=== PATIENT | female | born 1930 | race Asian ===

== ENCOUNTER 2016-07-20 09:51 | Emergency (ER) | payer OTHER ==
[2016-07-20 09:56] VITALS: TEMP 98.4; BMI 26.9
--- NOTE | 2016-07-20 10:24 | PDOC ---
History of Present Illness - General History Source: Patient, Family - History of Present Illness Initial Comments: 07/20/16 14:50 The patient is an 86 year old female with a significant past medical history of CAD, HTN, stent 5 years ago, diverticulosis s/p anemia with transfusion 2 years ago who is arrived to the Emergency Department via EMS with complaints of constant vertigo since this morning. Pt states that she was experiencing a minimal dizziness when she woke up this morning, which got worse while she was having breakfast. Pt states that her dizziness/vertigo gets worse when walking around and moving her head and improves at rest. She also reports palpitations and high bp. Pt reports dizziness and denies current double vision. She denies hematuria, dysuria, melena, hematochezia. She denies nausea, vomiting. She denies headache, neck pain, back pain. Daughter states that the pt experienced dizziness years ago due to anemia. Pt was on Plavix in the past but she stopped due to melena Pt lives with her daughter. PSH: appendectomy, bilateral hip replacement <Rosangela Rosales - Last Filed: 07/20/16 14:50> <Jay Jay Ratliff - Last Filed: 07/23/16 11:02> - General Chief Complaint: Lightheaded Stated Complaint: DIZZINESS, LIGHTHEADED Time Seen by Provider: 07/20/16 10:17 Past History <Rosangela Rosales - Last Filed: 07/20/16 14:50> - Past Medical History Anemia: Yes Cardiac Disorders: Yes HTN: Yes - Surgical History Appendectomy: Yes Cardiac Surgery: Yes (stent) Orthopedic Surgery: Yes (BILATERAL HIP REPLACEMENT) - Immunization History Td Vaccination: Yes Immunization Up to Date: Yes - Psycho/Social/Smoking Cessation Hx Anxiety: No Suicidal Ideation: No Smoking Status: No Smoking History: Never smoked Years of Tobacco Use: 0 Have you smoked in the past 12 months: No Number of Cigarettes Smoked Daily: 0 Cigars Per Day: 0 Information on smoking cessation initiated: No Hx Alcohol Use: No Drug/Substance Use Hx: No <Jay Jay Ratliff - Last Filed: 07/23/16 11:02> - Past Medical History Allergies/Adverse Reactions: Allergies Allergy/AdvReac Type Severity Reaction Status Date / Time No Known Allergies Allergy Verified 07/20/16 09:52 Home Medications: Ambulatory Orders Losartan Potassium [Cozaar -] 25 mg PO DAILY 03/07/16 Nifedipine ER [Procardia XL -] 90 mg PO DAILY 03/08/16 Meclizine HCl 25 mg PO TID #21 tablet 07/20/16 Metoprolol Tartrate 12.5 mg PO DAILY 07/20/16 Review of Systems - Review of Systems Able to Perform ROS?: Yes Comments:: 07/20/16 14:51 CONSTITUTIONAL: No reported: Fever, Chills, Diaphoresis, Generalized Weakness, Malaise, Loss of Appetite HEENT: No reported: Rhinorrhea, Nasal Congestion, Throat Pain, Throat Swelling, Difficulty Swallowing, Mouth Swelling, Ear Pain, Eye Pain, Visual Changes CARDIOVASCULAR: Yes: palpitations No reported: Chest Pain, Syncope, Peripheral Edema RESPIRATORY: No reported: Cough, Shortness of Breath, SOB with Exertion, Orthopnea, Wheezing , Stridor, Hemoptysis GASTROINTESTINAL: No reported: Abdominal pain, Abdominal Distension, Nausea, Vomiting, Diarrhea, Constipation, Melena, Hematochezia GENITOURINARY: No reported: Dysuria, Frequency, Urgency, Hesitancy, Flank Pain, Genital Pain MUSCULOSKELETAL: No reported: Myalgia, Arthralgia, Joint Swelling, Back pain, Neck Pain SKIN: No reported: Rash, Itching, Pallor HEMEATOLOGIC/IMMUNOLOGIC: No reported: Easy Bleeding, Easy Bruising, Lymphadenopathy, Frequent infections ENDOCRINE: No reported: Unexplained Weight Gain, Unexplained Weight Loss, Heat Intolerance , Cold Intolerance NEUROLOGIC: Yes: lightheadedness, dizziness, vertigo, double vision (resolved) No reported: Headache, Paresthesias, Unsteady Gait, Seizure, Mental Status Changes, Incontinence PSYCHIATRIC: No reported: Anxiety, Depression All Other Systems: Reviewed and Negative <Rosangela Rosales - Last Filed: 07/20/16 14:50> *Physical Exam - Vital Signs Last Vital Signs Temp Pulse Resp BP Pulse Ox 98.4 F 76 20 155/80 99 07/20/16 09:54 07/20/16 09:54 07/20/16 09:54 07/20/16 09:54 07/20/16 09:54 - Physical Exam Comments: 07/20/16 14:52 GENERAL: The patient is awake, alert, and fully oriented, Nontoxic - in no acute distress. HEAD: Normocephalic, atraumatic. EYES: extraocular movements intact, sclera anicteric, conjunctiva clear, horizontal nystagmus noted ENT: Normal voice, Moist mucous membranes. NECK: Normal range of motion, supple LUNGS: Breath sounds equal, clear to auscultation bilaterally. No wheezes, no rhonchi, no rales. HEART: Regular rate and rhythm, normal S1 and S2 without murmur, rub or gallop. ABDOMEN: Soft, nontender, normoactive bowel sounds. No guarding, no rebound. No CVA tenderness EXTREMITIES: Normal range of motion, no edema. No clubbing or cyanosis. No cords, erythema, or tenderness. NEUROLOGICAL: No facial assymetry, Normal speech, normal finger to nose/rapid alertnating movements, strength 5/5 and symmetric in upper/lower, senstaion symmetric grossly intact and symmetric. normal nonataxic gait, negative romberg PSYCH: Normal mood, normal affect. SKIN: Warm, Dry, normal turgor, <Rosangela Rosales - Last Filed: 07/20/16 14:50> - Vital Signs Last Vital Signs Temp Pulse Resp BP Pulse Ox 98.4 F 76 20 155/80 99 07/20/16 09:54 07/20/16 09:54 07/20/16 09:54 07/20/16 09:54 07/20/16 09:54 <Jay Jay Ratliff - Last Filed: 07/23/16 11:02> Heart Score/ECG Review - ECG Impressions Comment:: 07/20/16 10:49 Twelve-lead EKG was performed and reviewed by me. There is normal sinus rhythm with a normal rate. rate of 68 lvh abnormal r wave progression <Jay Jay Ratliff - Last Filed: 07/23/16 11:02> ED Treatment Course - LABORATORY CBC & Chemistry Diagram: 07/20/16 10:34 07/20/16 10:34 - ADDITIONAL ORDERS Additional order review: Laboratory Results 07/20/16 07/20/16 07/20/16 10:34 10:34 10:34 INR 0.96 Sodium 142 Potassium 3.9 Chloride 109 H Carbon Dioxide 26 Anion Gap 7 L BUN 16 Creatinine 0.9 Creat Clearance w eGFR 59.37 Random Glucose 107 H Calcium 8.7 Total Bilirubin 0.4 D AST 24 D ALT 11 L Alkaline Phosphatase 91 Creatine Kinase 92 Troponin I < 0.02 Total Protein 7.2 Albumin 3.5 Blood Type B POSITIVE Antibody Screen Negative 07/20/16 10:34 RBC 5.72 H MCV 68.7 L MCHC 30.9 L RDW 16.6 H MPV 9.1 D Neutrophils % 61.8 Lymphocytes % 26.5 Monocytes % 6.3 Eosinophils % 3.9 Basophils % 1.5 - Medications Given in the ED: ED Medications Discontinued Medications Generic Name Dose Route Start Last Admin Trade Name Freq PRN Reason Stop Dose Admin Meclizine HCl 25 mg 07/20/16 10:42 07/20/16 10:58 Antivert - PO 07/20/16 10:43 25 mg ONCE ONE Administration <Rosangela Rosales - Last Filed: 07/20/16 14:50> - LABORATORY CBC & Chemistry Diagram: 07/20/16 10:34 07/20/16 10:34 - RADIOLOGY Radiology Studies Ordered: Category Date Time Status CHEST X-RAY PORTABLE* [RAD] Stat Radiology 07/20/16 10:22 Ordered <Jay Jay Ratliff - Last Filed: 07/23/16 11:02> Medical Decision Making - Medical Decision Making 07/20/16 10:43 86y F hx of htn, cad s/p stent, anemia secondary to diverticulosis presents with vertigo since this morning, is fairly constant but sometimes resolves, pt does endorse sensation of movement, but her history seems inconsistent, as she complained of double vision when i was evaluating her, but later denies it. per family pt did endorse palptations earlier, denies GIB, cp, headache, neck pain, back pain. her exam showed some horizontal nystagmus, but normal finger to nose /rapid alternating movements. differential includes peripheral vertigo, vs central vertigo, anemia, metabolic dernagement will ck cbc, cmp, ct head will give meclizine A portion of this note was documented by scribe services under my direction. I have reviewed the details of the note, within reason, and agree with the documentation with the following case summary and management plan written by me 07/20/16 18:11 pts labs reviewed pt ct negative pt feeling significantly imroved able to ambulate around ED with nonataxic gait and no vertigo pt will be d/c with meclizine and pmd/neuro fu return precautions were discussed I discussed the physical exam findings, ancillary test results and final diagnoses with the patient. I answered all of the patient's questions. The patient was satisfied with the care received and felt comfortable with the discharge plan and treatment plan. The patient will call their primary care physician within 24 hours to arrange follow-up and will return to the Emergency Department with any new, persistent or worsening symptoms. <Jay Jay Ratliff - Last Filed: 07/23/16 11:02> *DC/Admit/Observation/Transfer - Attestations Scribe Attestion: 07/20/16 14:53 Documentation prepared by Rosangela Rosales, acting as medical claims representative for Jay Jay Ratliff MD. <Rosangela Rosales - Last Filed: 07/20/16 14:50> - Discharge Dispostion Admit: No <Jay Jay Ratliff - Last Filed: 07/23/16 11:02> Diagnosis at time of Disposition: Vertigo, Hematuria - Discharge Dispostion Disposition: HOME Condition at time of disposition: Improved - Prescriptions Prescriptions: Meclizine HCl 25 mg PO TID #21 tablet - Referrals Referrals: Rommel Moreland MD [Staff Physician] - - Patient Instructions Printed Discharge Instructions: DI for Vertigo Additional Instructions: Return to the emergency department immediately with ANY new, persistent or worsening symptoms including persistent dizziness, vision changes, numbness, tingling, weakness, vomiting or any other concerns. Take Meclizine as needed for your vertigo. You MUST call and follow up with your doctor and neurologist for further evaluation of your symptoms. Results were discussed with you. Please make sure your doctor reviews the results of your emergency evaluation. Print Language: MACEDONIAN
[2016-07-20] MEDS ORDERED: MECLIZINE HCL 25 MG TABLET (FP) PO ONE (10:42)
[2016-07-20] MEDS ORDERED: MECLIZINE HCL 25 MG TABLET (FP) ONE (10:56)
[2016-07-20 10:59] LABS: BASOPHIL 1.5 % (0-2.0); EOSINOPHIL 3.9 % (0-4.5); MCH 21.2 pg (25.7-33.7); MCHC 30.9 g/dl (32.0-36.0); MEAN CELL VOLUME 68.7 fl (80-96); MEAN PLT VOLUME 9.1 fl (7.5-11.1); NEUTROPHILS 61.8 % (42.8-82.8); RDW 16.6 % (11.6-15.6); WHITE BLOOD COUNT 6.3 K/mm3 (4.0-10.0)
[2016-07-20 11:05] LABS: ALBUMIN 3.5 g/dl (3.4-5.0); ANION GAP 7 (8-16); BILIRUBIN,TOTAL 0.4 mg/dL (0.2-1.0); CALCIUM 8.7 mg/dL (8.5-10.1); CO2 26 mmol/L (21-32); CREATININE 0.9 mg/dL (0.55-1.02); GLUCOSE,RANDOM 107 mg/dL (74-106); SGPT/ALT 11 U/L (12-78); TOT PROT 7.2 g/dl (6.4-8.2)
[2016-07-20 11:07] LABS: ALK PHOS 91 U/L (45-117); TROPONIN I < 0.02 ng/ml (0.00-0.05)
[2016-07-20 11:08] LABS: SGOT/AST 24 U/L (15-37)
[2016-07-20 11:11] LABS: INR 0.96 (0.82-1.09); PROTHROMBIN TIME (PATIENT) 10.6 SEC (9.98-11.88)
--- NOTE | 2016-07-20 12:15 | EKG ---
Test Reason : Blood Pressure : / mmHG Vent. Rate : 068 BPM Atrial Rate : 070 BPM P-R Int : 000 ms QRS Dur : 074 ms QT Int : 430 ms P-R-T Axes : 000 -20 129 degrees QTc Int : 457 ms POOR DATA QUALITY, INTERPRETATION MAY BE ADVERSELY AFFECTED UNDETERMINED RHYTHM LEFT AXIS DEVIATION LEFT VENTRICULAR HYPERTROPHY WITH REPOLARIZATION ABNORMALITY CANNOT RULE OUT SEPTAL INFARCT (CITED ON OR BEFORE 07-MAR-2016) ABNORMAL ECG Confirmed by AZEEM BEYER MD ([id number]) on 07/20/2016 12:15:32 PM Referred By: Confirmed By:AZEEM BEYER MD
[2016-07-20 14:31] LABS: PLATELET COUNT 197 K/MM3 (134-434); PLATELET ESTIMATE ADEQUATE (NORMAL)
[2016-07-20 17:04] LABS: URINE APPEARANCE CLEAR; URINE BILIRUBIN NEGATIVE (NEGATIVE); URINE COLOR COLORLESS; URINE GLUCOSE (UA) NEGATIVE (NEGATIVE); URINE KETONE NEGATIVE (NEGATIVE); URINE LEUK ESTERASE NEGATIVE (NEGATIVE); URINE NITRITE NEGATIVE (NEGATIVE); URINE PROTEIN NEGATIVE (NEGATIVE); URINE UROBILINOGEN NEGATIVE E.U./dl (0.2-1.0)
[2016-07-20 17:11] LABS: URINE BLOOD 2+ (NEGATIVE)
[2016-07-20 17:27] LABS: URINE BACTERIA RARE /hpf (NONE SEEN); URINE RBC 13 /hpf (0-3); URINE WBC 3 /hpf (3-5)
[2016-07-20 19:34] VITALS: BP 145/78; PULSE 78
== END 2016-07-20 19:35 | disposition home or self-care (01) ==
LOC: JER 09:51
DX: R42 Dizziness and giddiness (principal); R31.9 Hematuria, unspecified; I10 Essential (primary) hypertension; Z95.5 Presence of coronary angioplasty implant and graft; I25.10 Atherosclerotic heart disease of native coronary artery without angina pectoris; Z96.643 Presence of artificial hip joint, bilateral; D64.9 Anemia, unspecified
CPT/HCPCS: 36415; 70450-TC; 71010-TC; 80053; 81003; 81015; 82550; 84484; 85025; 85610; 86850; 86900; 86901; 93005; 93010; 99283-25

== ENCOUNTER 2016-08-31 09:03 | Inpatient (IN) | payer OTHER ==
[2016-08-31 09:34] VITALS: BMI 23.2
--- NOTE | 2016-08-31 09:58 | PDOC ---
History of Present Illness - General History Source: Patient Exam Limitations: No Limitations - History of Present Illness Initial Comments: 08/31/16 11:17 The patient is a 86 year old female, with a significant past medical history of CAD s/p 5x stents, HTN, anemia, diverticulosis, who presents to the emergency department with a recent diagnosis of pneumonia as an outpatient by PMD. Daughter reports taking the patient to see yesterday where she was diagnosed with pneumonia (after x-ray) and discharged home with antibiotics. Patient arrives complaining of SOB and intermittent cough for the past week but worsened the past 2 days. She reports coughing up a white substance. Daughter reports her has had similar symptoms that have now been resolved. She denies having her flu shot this season. She also reports having a oral temp to 101 last night. She denies chest pain. She denies recent, chills, leb swelling, orthopnea, headache or dizziness. She denies recent nausea, vomit, diarrhea or constipation. Patient arrives with O2 sat is 73. Allergies: NKDA Past surgical history: bilateral THR, appendectomy Social history: Nonsmoker. Denies EtOH use and drug use. PCP: <Tay Fu - Last Filed: 08/31/16 15:07> <Jay Jay Ratliff - Last Filed: 08/31/16 17:16> - General Chief Complaint: SIRS, Suspected/Possible Stated Complaint: SOB (PNEUMONIA) Time Seen by Provider: 08/31/16 09:36 Past History <Tay Fu - Last Filed: 08/31/16 15:07> - Past Medical History Anemia: Yes Cardiac Disorders: Yes HTN: Yes - Surgical History Appendectomy: Yes Cardiac Surgery: Yes (stent) Orthopedic Surgery: Yes (BILATERAL HIP REPLACEMENT) - Immunization History Td Vaccination: Yes Immunization Up to Date: Yes - Psycho/Social/Smoking Cessation Hx Anxiety: No Suicidal Ideation: No Smoking Status: No Smoking History: Never smoked Years of Tobacco Use: 0 Have you smoked in the past 12 months: No Number of Cigarettes Smoked Daily: 0 Cigars Per Day: 0 Information on smoking cessation initiated: No Hx Alcohol Use: No Drug/Substance Use Hx: No Substance Use Type: None <Jay Jay Ratliff - Last Filed: 08/31/16 17:16> - Past Medical History Allergies/Adverse Reactions: Allergies Allergy/AdvReac Type Severity Reaction Status Date / Time No Known Allergies Allergy Verified 08/31/16 09:28 Home Medications: Ambulatory Orders Losartan Potassium [Cozaar -] 25 mg PO DAILY 03/07/16 Nifedipine ER [Procardia XL -] 90 mg PO DAILY 03/08/16 Meclizine HCl 25 mg PO TID #21 tablet 07/20/16 Metoprolol Tartrate 12.5 mg PO DAILY 07/20/16 Review of Systems - Review of Systems Able to Perform ROS?: Yes Comments:: 08/31/16 11:17 CONSTITUTIONAL: +fever (101). No reported: Chills, Diaphoresis, Generalized Weakness, Malaise, Loss of Appetite HEENT: No reported: Rhinorrhea, Nasal Congestion, Throat Pain, Throat Swelling, Difficulty Swallowing, Mouth Swelling, Ear Pain, Eye Pain, Visual Changes CARDIOVASCULAR: No reported: Chest Pain, Syncope, Palpitations, Irregular Heart Rate, Lightheadedness, Peripheral Edema RESPIRATORY: +cough and SOB. No reported: Wheezing, Stridor, Hemoptysis GASTROINTESTINAL: No reported: Abdominal pain, Abdominal Distension, Nausea, Vomiting, Diarrhea, Constipation, Melena, Hematochezia GENITOURINARY: No reported: Dysuria, Frequency, Urgency, Hesitancy, Flank Pain, Genital Pain MUSCULOSKELETAL: No reported: Myalgia, Arthralgia, Joint Swelling, Back pain, Neck Pain SKIN: No reported: Rash, Itching, Pallor HEMEATOLOGIC/IMMUNOLOGIC: No reported: Easy Bleeding, Easy Bruising, Lymphadenopathy, Frequent infections ENDOCRINE: No reported: Unexplained Weight Gain, Unexplained Weight Loss, Heat Intolerance , Cold Intolerance NEUROLOGIC: No reported: Headache, Focal Weakness, Paresthesias, Vertigo, Lightheadedness, Unsteady Gait, Seizure, Mental Status Changes, Incontinence PSYCHIATRIC: No reported: Anxiety, Depression <Tay Fu - Last Filed: 08/31/16 15:07> *Physical Exam - Vital Signs Last Vital Signs Temp Pulse Resp BP Pulse Ox 99.2 F 83 22 120/62 95 08/31/16 10:00 08/31/16 09:28 08/31/16 09:28 08/31/16 09:28 08/31/16 10:00 - Physical Exam Comments: 08/31/16 11:18 GENERAL: The patient is awake, alert, and fully oriented, mildly tachypneic. HEAD: Normocephalic, atraumatic. EYES: extraocular movements intact, sclera anicteric, conjunctiva clear. ENT: Normal voice, Moist mucous membranes. NECK: Normal range of motion, supple LUNGS: slightly tachpenic, basilar rales, mild wheezing/rales in Rlower lobe HEART: Regular rate and rhythm, normal S1 and S2 without murmur, rub or gallop. ABDOMEN: Soft, nontender, normoactive bowel sounds. No guarding, no rebound. . No CVA tenderness EXTREMITIES: Normal range of motion, trace edema. No clubbing or cyanosis. No cords, erythema, or tenderness. NEUROLOGICAL: No facial assymetry, Normal speech, PSYCH: Normal mood, normal affect. SKIN: Warm, Dry, normal turgor, <Tay Fu - Last Filed: 08/31/16 15:07> - Vital Signs Last Vital Signs Temp Pulse Resp BP Pulse Ox 98.1 F 83 22 120/62 73 L 08/31/16 09:28 08/31/16 09:28 08/31/16 09:28 08/31/16 09:28 08/31/16 09:28 <Jay Jay Ratliff - Last Filed: 08/31/16 17:16> Heart Score/ECG Review - ECG Impressions Comment:: 08/31/16 11:00 Twelve-lead EKG was performed and reviewed by me. There is normal sinus rhythm with rate of 69 LVH with repolarization abnormal r wave progression <Jay Jay Ratliff - Last Filed: 08/31/16 17:16> ED Treatment Course - LABORATORY CBC & Chemistry Diagram: 08/31/16 09:45 08/31/16 09:45 - ADDITIONAL ORDERS Additional order review: Laboratory Results 08/31/16 08/31/16 08/31/16 10:13 09:45 09:45 INR PTT (Actin FS) Puncture Site Right radial ABG pH 7.40 ABG pCO2 at Pt Temp 38.7 ABG pO2 at Pt Temp 55.3 L ABG HCO3 23.6 ABG O2 Sat (Measured) 88.8 L ABG O2 Content 13.1 L ABG Base Excess -0.4 Sunny Test Positive Oxygen Flow Rate 3 lpm PEEP 0.0 Sodium 143 Potassium 3.5 Chloride 106 Carbon Dioxide 25 Anion Gap 12 BUN 25 H D Creatinine 1.7 H D Creat Clearance w eGFR 28.50 Random Glucose 139 H D Lactic Acid 2.352 H* Calcium 8.3 L Total Bilirubin 0.2 D AST 23 ALT 11 L Alkaline Phosphatase 99 Creatine Kinase 233 H D Troponin I 0.03 Total Protein 7.4 Albumin 3.5 Blood Type Antibody Screen 08/31/16 08/31/16 09:45 09:44 INR 1.02 PTT (Actin FS) 33.7 Puncture Site ABG pH ABG pCO2 at Pt Temp ABG pO2 at Pt Temp ABG HCO3 ABG O2 Sat (Measured) ABG O2 Content ABG Base Excess Sunny Test Oxygen Flow Rate PEEP Sodium Potassium Chloride Carbon Dioxide Anion Gap BUN Creatinine Creat Clearance w eGFR Random Glucose Lactic Acid Calcium Total Bilirubin AST ALT Alkaline Phosphatase Creatine Kinase Troponin I Total Protein Albumin Blood Type B POSITIVE Antibody Screen Negative 08/31/16 09:45 RBC 5.43 H MCV 68.6 L MCHC 30.7 L RDW 16.7 H MPV 8.1 D Neutrophils % 57.3 Lymphocytes % 24.9 Monocytes % 10.8 H Eosinophils % 6.0 H Basophils % 1.0 - RADIOLOGY Radiograph Interpretation: 08/31/16 11:31 CHEST X-RAY impressions reported by : No evidence of vascular congestion, pleural effusion or pneumothorax. NO evidence of a pulmonary infiltrates. <Tay Fu - Last Filed: 08/31/16 15:07> - LABORATORY CBC & Chemistry Diagram: 08/31/16 09:45 08/31/16 09:45 - RADIOLOGY Radiology Studies Ordered: Category Date Time Status CHEST X-RAY PORTABLE* [RAD] Stat Radiology 08/31/16 09:44 Ordered <Jay Jay Ratliff - Last Filed: 08/31/16 17:16> Medical Decision Making - Medical Decision Making 08/31/16 14:35 Call made to , patient's PCP, awaiting call back. 08/31/16 15:07 Call made to , 2nd time, case discussed. <Tay Fu - Last Filed: 08/31/16 15:07> - Medical Decision Making 08/31/16 10:56 86y F hx of htn, cad s/p stent (off plavix), presents with cough/sob - pt was dianogsed with pna/bronchitis yesterday as an outpatient, and had a cxr that was negative and was started on levaquin but has been feeeling more dyspneic and sob, on arrival pt was noted to have a saturation of 73% on triage, vitals otherwise normal - pt noted very mildly tachpneic but otherwise in no distress, pulm exam reveals some rales worse on the R side. pt was placed on nasal canula 2L with improvement to the low 90s. afebrile here, but noted to have fever at home to 101. ?pna - however would suspect pts cxr to show obvious infiltrate with her level of hypoxia - ?influenza - will swab also consider other 08/31/16 15:14 labs reviewed no signs of leukocytosis or left shift bnp eleated to 900s but cxr inconsistent with chf exacerbation to explain hypoxia the pts cxr shows faint infiltrate in r side, thus CT was obtained to further evaluate - there was signs of scarring and posible underlying infiltrate, however the area is not very large and incosnitent with the patients degree of hypoxia ?PE?? pt was written for abx due to possible infiltrate in the region of scarring, consider propylaxic treatment with a/c due to inability to r/o PE with her renal insufficeincy case sarwat/ dr. Cortes requested admission and consult with remedios awaiting duplex 08/31/16 17:15 case sarwat erazo and dr. monson agree with a/c in light of hypoxia out of proportion of her ct/xray findigngs Case discussed in detail with admitting physician including history, physical exam and ancillary studies. Admitting physician has assumed care for the patient, will follow all pending diagnostics and will complete the evaluation and treatment. CRITICAL CARE DOCUMENTATION: I spent ~35 minutes of Critical Care time, excluding separately billable procedures, involving high complexity decision making to assess, manipulate and support vital system function(s) to treat single or multiple vital organ system failure and/or to prevent further life threatening deterioration of the patient' s condition. <Jay Jay Ratliff - Last Filed: 08/31/16 17:16> *DC/Admit/Observation/Transfer - Attestations Scribe Attestion: 08/31/16 11:18 Documentation prepared by Tay Fu, acting as emergency medicine medical director for Jay Jay Ratliff MD. <Tay Fu - Last Filed: 08/31/16 15:07> - Discharge Dispostion Admit: Yes <Jay Jay Ratliff - Last Filed: 08/31/16 17:16> Diagnosis at time of Disposition: Hypoxia, Cough - Discharge Dispostion Condition at time of disposition: Guarded - Referrals
[2016-08-31 10:07] LABS: MCH 21.1 pg (25.7-33.7); MCHC 30.7 g/dl (32.0-36.0); MEAN CELL VOLUME 68.6 fl (80-96); MEAN PLT VOLUME 8.1 fl (7.5-11.1); NEUTROPHILS 57.3 % (42.8-82.8); PLATELET COUNT 170 K/MM3 (134-434); RDW 16.7 % (11.6-15.6); WHITE BLOOD COUNT 4.8 K/mm3 (4.0-10.0)
[2016-08-31 10:27] LABS: ARTERIAL BLD GAS O2 SATURATION 88.8 % (90-98.9); ARTERIAL BLOOD GAS BASE EXCESS -0.4 meq/l (-2-2); ARTERIAL BLOOD GAS HCO3 23.6 meq/L (22-26)
[2016-08-31 10:28] LABS: ALLENS TEST POSITIVE; ART PUNCT SITE RIGHT RADIAL
[2016-08-31 10:29] LABS: ARTERIAL BLOOD GAS PO2 55.3 mmHg (68-100); LPM/O2% 3 LPM; PT. ON O2? YES
[2016-08-31 10:29] LABS: ALBUMIN 3.5 g/dl (3.4-5.0); BILIRUBIN,TOTAL 0.2 mg/dL (0.2-1.0); CALCIUM 8.3 mg/dL (8.5-10.1); CREATININE 1.7 mg/dL (0.55-1.02); INR 1.02 (0.82-1.09); PROTHROMBIN TIME (PATIENT) 11.2 SEC (9.98-11.88); TOT PROT 7.4 g/dl (6.4-8.2)
[2016-08-31 10:32] LABS: ACTIVATED PTT 33.7 SECONDS (26.9-34.4); TROPONIN I 0.03 ng/ml (0.00-0.05)
[2016-08-31] MEDS ORDERED: ALBUTEROL SO4 2.5/IPRATROPIUM 0.5 INH SOL 3 ML VIAL.NEB. NEB ONE (10:45)
[2016-08-31] MEDS ORDERED: SODIUM CHLORIDE 500 ML IV STA (11:32)
[2016-08-31 11:55] LABS: URINE APPEARANCE CLEAR; URINE BILIRUBIN NEGATIVE (NEGATIVE); URINE COLOR YELLOW; URINE GLUCOSE (UA) NEGATIVE (NEGATIVE); URINE KETONE NEGATIVE (NEGATIVE); URINE NITRITE NEGATIVE (NEGATIVE); URINE PROTEIN NEGATIVE (NEGATIVE); URINE UROBILINOGEN NEGATIVE E.U./dl (0.2-1.0)
[2016-08-31 12:01] LABS: URINE BLOOD 2+ (NEGATIVE); URINE LEUK ESTERASE TRACE (NEGATIVE)
[2016-08-31 12:05] LABS: URINE BACTERIA RARE /hpf (NONE SEEN); URINE MUCUS RARE; URINE RBC 5 /hpf (0-3); URINE WBC 2 /hpf (3-5)
[2016-08-31 12:07] LABS: URINE HYALINE CAST 15 /lpf
[2016-08-31 13:53] LABS: MICROCYTOSIS 3+
[2016-08-31 13:54] LABS: ANISOCYTOSIS 3+; HYPOCHROMIA 2+; OVALOCYTES 1+; TARGET CELLS 1+
[2016-08-31] MEDS ORDERED: CEFTRIAXONE 1 GM in DEXTROSE 5%-WATER - 50 ML IVPB ONE (14:06)
[2016-08-31] MEDS ORDERED: AZITHROMYCIN IVPB 500 MG in DEXTROSE 5%-WATER - 250 ML IVPB ONE (14:07)
[2016-08-31] MEDS ORDERED: CEFTRIAXONE 50 ML ONE (14:35)
[2016-08-31] MEDS ORDERED: AZITHROMYCIN IVPB 250 ML IVPB ONE (14:35)
--- NOTE | 2016-08-31 15:34 | PN ---
Progress Note (short form) - Note Progress Note: Cardiology Consult Dictated 1. RML PNA on CT 2. Profound hypoxia, out of proportion to infiltrate size/extent 3. Concern for pulmonary embolism 4. HTN with CKD precludes CTA REC: Supplimental O2. Abx for PNA. Pulmonary evaluation. If clinical concern for PE, anticoagulate until diagnostic study can be done ( either CTA if creat improves or V/Q) Can obtain echo today for assessment of RV and RVSP as well as LE venous dopplers.
--- NOTE | 2016-08-31 15:36 | EKG ---
Test Reason : Blood Pressure : / mmHG Vent. Rate : 069 BPM Atrial Rate : 072 BPM P-R Int : 000 ms QRS Dur : 078 ms QT Int : 398 ms P-R-T Axes : 000 -13 -50 degrees QTc Int : 426 ms POOR DATA QUALITY, INTERPRETATION MAY BE ADVERSELY AFFECTED NORMAL SINUS RHYTHM WITH 1ST DEGREE A-V BLOCK LEFT VENTRICULAR HYPERTROPHY WITH REPOLARIZATION ABNORMALITY CANNOT RULE OUT SEPTAL INFARCT , AGE UNDETERMINED NONSPECIFIC ST ABNORMALITY ABNORMAL ECG Confirmed by AZEEM BEYER MD ([id number]) on 08/31/2016 3:35:49 PM Referred By: Confirmed By:AZEEM BEYER MD
[2016-08-31] MEDS: ASPIRIN 81 MG CHEWABLE TABLETS PO SCH (16:45)
[2016-08-31] MEDS ORDERED: ASPIRIN 81 MG CHEWABLE TABLETS ONE (16:56)
[2016-08-31] MEDS ORDERED: methylPREDNISolone NA SUCC 125 MG/2 ML VIAL IVPB ONE (17:13)
[2016-08-31] MEDS ORDERED: HEPARIN NA (PORCINE) 5,000 UNITS/ML 1ML VIAL IVPUSH ONE (17:14)
--- NOTE | 2016-08-31 17:19 | PN ---
Progress Note (short form) - Note Progress Note: PULMONARY CONSULTATION DICTATED 08/31/16 IMP ACUTE HYPOXEMIC RESPIRATORY FAILURE SIRS PNEUMONIA ? PE HTN ASHD S/P STENT X5 ACUTE KIDNEY INJURY ELEVATED LACTATE LEVEL PLAN IV ANTIBIOTICS INHALED BRONCHODILATORS STEROIDS HEPARIN SUPPLEMENTAL O2 ECHO D-DIMER TREND LACTATE DR RICHARDSON Problem List - Problems (1) Cough Code(s): R05 - COUGH (2) Hypoxia Code(s): R09.02 - HYPOXEMIA (3) Acute kidney injury Code(s): N17.9 - ACUTE KIDNEY FAILURE, UNSPECIFIED (4) Acute hypoxemic respiratory failure Code(s): J96.01 - ACUTE RESPIRATORY FAILURE WITH HYPOXIA (5) Pneumonia Code(s): J18.9 - PNEUMONIA, UNSPECIFIED ORGANISM (6) Lactate blood increased Code(s): E87.2 - ACIDOSIS
[2016-08-31] MEDS ORDERED: ALBUTEROL SO4 0.083% IH SOL 2.5 MG/3 ML VIAL.NEB. NEB PRN (17:23)
[2016-08-31] MEDS ORDERED: methylPREDNISolone NA SUCC 125 MG/2 ML VIAL ONE (17:35)
[2016-08-31] MEDS ORDERED: HEPARIN NA (PORCINE) 5,000 UNITS/ML 1ML VIAL ONE (17:35)
[2016-08-31] MEDS ORDERED: HEPARIN INFUSION - 500 ML IVPB ONE (17:35)
[2016-08-31] MEDS: HEPARIN INFUSION - 500 ML IVPB SCH (17:40)
[2016-08-31] MEDS: ALBUTEROL SO4 2.5/IPRATROPIUM 0.5 INH SOL 3 ML VIAL.NEB. NEB SCH ×2 (18:15→23:20)
[2016-08-31] MEDS: methylPREDNISolone NA SUCC 40 MG/1 ML VIAL IVPB SCH (20:19)
--- NOTE | 2016-08-31 21:48 | CONS ---
DATE OF CONSULTATION: 08/31/2016 REQUESTING PHYSICIAN: Jay Jay Ratliff MD in the emergency department for hypoxemia, possible pulmonary embolism. HISTORY: The patient is an 86-year-old Bangladeshi female poor historian with past medical history of hypertension and vertigo who presents to the emergency department for evaluation of dry cough and evaluation of pneumonia. As per ER records, the daughter reports taking the patient to see Dr. Cortes yesterday in the office where she was diagnosed with pneumonia on x-ray and started on a trial of oral antibiotics. The patient then became progressively more short of breath through the following 24 hours with intermittent cough, which has been worse over the last 2 days. Her dry cough began approximately 1 week ago. She describes coughing up a whitish phlegm. She denies fever or chills. As per the daughter and the emergency room records, a family member had similar URI symptoms, which resolved. As per records, the patient was also febrile to 101 last evening. The patient was found to be markedly hypoxemic on room air with an O2 saturation of 73%. PAST MEDICAL HISTORY: Coronary artery disease with reported 5 previous stents, hypertension, anemia, diverticulosis, bilateral total knee replacements, and previous appendectomy. ALLERGIES: None. HOME MEDICATIONS: Need to be reconciled but include Procardia XL, Metoprolol Tartrate, meclizine, and losartan. FAMILY HISTORY: Noncontributory. SOCIAL HISTORY: Nonsmoker. Denies recent prolonged airline travel. PHYSICAL EXAMINATION: Vital Signs: Temperature 99.2, blood pressure 120/62, pulse 83, regular, initial O2 is 73% on room air, 95% on 3 L. General: The patient appears comfortable lying flat. No JVD or bruits. Heart: S1, S2. Regular. Anteriorly there are rhonchi and mild expiratory wheezing posteriorly. Abdomen: Soft and nontender. Extremities: With 1+ edema bilaterally. LABORATORIES: White count 4.8, hematocrit 37.3, platelets 170, INR 1.02. AB.4, 38.7, 55 on 3 L nasal cannula. Sodium 143, potassium 3.5, BUN 25, creatinine 1.7, lactic acid 2.3, CK 233. Troponin 0.03. BNP 966.37. IMAGING STUDIES: Chest x-ray showed right middle/right lower lobe infiltrate. No evidence of vascular congestion. CT chest without contrast showed peribronchial thickening with linear opacities in the region of the right costophrenic angle, possibly pneumonia. No evidence of effusion or pneumothorax. No evidence of vascular congestion. IMPRESSION: 1. Right middle lobe pneumonia on CT. 2. Profound hypoxemia, out of proportion to the infiltrate size/extent. 3. Concern for pulmonary embolism. 4. Hypertension with chronic kidney disease precluding CT angiogram. 5. Reported history of coronary disease. RECOMMENDATIONS: 1. Supplemental O2. 2. Antibiotics for treatment of pneumonia. 3. Pulmonary evaluation. 4. If there is clinical concern for pulmonary embolism, anticoagulated until diagnostic study can be done (either CTA if creatinine improves or VQ scan). 5. Can obtain echocardiogram today for assessment of RV and right ventricular systolic pressure as well as lower extremity venous Dopplers. We will need to clarify the extent of her coronary disease and the timing of her previous stents. For now, would start aspirin 81 mg daily until further records can be reviewed. Thank you for the consultation. AZEEM BEYER M.D. [id number]
--- NOTE | 2016-09-01 01:50 | HP ---
Admitting History and Physical - Admission Chief Complaint: Shortness of breath History of Present Illness: Pt is a 86 y/o female w/ PMH significant for CAD(s/p stent placement), HTN, HLD , anemia and diverticulosis. Pt started on treatment for pneumoia w/ levaquin for the past 24-48 hrs. However pt developed increasing SOB and cough was slightly worsened. Cough is still dry and nonproductive. Pt denied any fever/ chills and was afebrile in the ER but pt was found to be hypoxic with O2 sat of 79%. CXR was unremarkable. Pt initially started on IV heparin for PE. CT chest was done without contrast due to elevated creatinine wc showed ? infiltrate. Dopplers of lower extreities were negative but D-Dimer was slightly elevated History Source: Patient - Past Medical History Cardiovascular: Yes: CAD, HTN, Hyperlipdemia ...: No Heme/Onc: Yes: Anemia - Past Surgical History Past Surgical History: Yes: Appendectomy Additional Past Surgical History: B/L THR - Smoking History Smoking history: Never smoked Have you smoked in the past 12 months: No Aproximately how many cigarettes per day: 0 - Alcohol/Substance Use Hx Alcohol Use: No Home Medications - Allergies Allergies/Adverse Reactions: Allergies Allergy/AdvReac Type Severity Reaction Status Date / Time No Known Allergies Allergy Verified 08/31/16 09:28 - Home Medications Home Medications: Ambulatory Orders Losartan Potassium [Cozaar -] 25 mg PO DAILY 03/07/16 Nifedipine ER [Procardia XL -] 90 mg PO DAILY 03/08/16 Levofloxacin [Levaquin] 500 mg PO DAILY 08/31/16 Metoprolol Succinate [Toprol Xl -] 12.5 mg PO DAILY 08/31/16 Review of Systems - Review of Systems Constitutional: reports: Chills, Fever, Loss of Appetite, Weakness Eyes: reports: No Symptoms HENT: reports: No Symptoms Neck: reports: No Symptoms Cardiovascular: reports: Shortness of Breath Respiratory: reports: Cough, SOB Gastrointestinal: reports: No Symptoms Physical Examination Vital Signs: Vital Signs Temperature 98.7 F 08/31/16 21:00 Pulse Rate 87 08/31/16 21:00 Respiratory Rate 20 08/31/16 21:00 Blood Pressure 128/74 08/31/16 21:00 O2 Sat by Pulse Oximetry (%) 90 L 08/31/16 21:00 Constitutional: Yes: Well Nourished HENT: Yes: WNL Neck: Yes: Supple Cardiovascular: Yes: WNL, Regular Rate and Rhythm Respiratory: Yes: Rhonchi Gastrointestinal: Yes: WNL, Normal Bowel Sounds, Soft Breast(s): Yes: WNL Musculoskeletal: Yes: WNL Extremities: Yes: WNL Edema: No Neurological: Yes: WNL, Alert, Oriented Problem List - Problems (1) Acute hypoxemic respiratory failure Assessment/Plan: Cont IV heparin Will need cta chest once creatinine improved ?V/Q scan Pulmonary consult Code(s): J96.01 - ACUTE RESPIRATORY FAILURE WITH HYPOXIA
[2016-09-01] MEDS: HEPARIN INFUSION - 500 ML IVPB SCH ×3 (02:12→22:56)
[2016-09-01] MEDS: methylPREDNISolone NA SUCC 40 MG/1 ML VIAL IVPB SCH ×4 (02:35→20:35)
[2016-09-01] MEDS: ALBUTEROL SO4 2.5/IPRATROPIUM 0.5 INH SOL 3 ML VIAL.NEB. NEB SCH ×4 (06:29→23:56)
[2016-09-01 07:04] LABS: BASOPHIL 0.2 % (0-2.0); MCH 21.2 pg (25.7-33.7); MEAN CELL VOLUME 68.4 fl (80-96); MEAN PLT VOLUME 8.6 fl (7.5-11.1); NEUTROPHILS 76.1 % (42.8-82.8); PLATELET COUNT 172 K/MM3 (134-434); RDW 16.8 % (11.6-15.6); WHITE BLOOD COUNT 3.3 K/mm3 (4.0-10.0)
[2016-09-01 07:24] LABS: ALBUMIN 3.3 g/dl (3.4-5.0); CALCIUM 7.9 mg/dL (8.5-10.1)
[2016-09-01 07:27] LABS: TROPONIN I < 0.02 ng/ml (0.00-0.05)
[2016-09-01 07:28] LABS: BILIRUBIN,TOTAL 0.2 mg/dL (0.2-1.0); CREATININE 1.2 mg/dL (0.55-1.02); TOT PROT 7.3 g/dl (6.4-8.2)
[2016-09-01] MEDS ORDERED: CEFTRIAXONE 1 GM in DEXTROSE 5%-WATER - 50 ML IVPB SCH (10:00)
[2016-09-01] MEDS ORDERED: PT OWN MED DRAWER 7, Y5N ONE (10:25)
--- NOTE | 2016-09-01 10:25 | PN ---
Progress Note (short form) - Note Progress Note: PULMONARY OOB TO CHAIR HARSH COUGH CONTINUES VSS/AFEBRILE ANICTERIC DIMINISHED BREATH SOUNDS B/L S1S2 BS+ NO EDEMA LABS/MEDS/NOTES/IMAGING/MICRO/D-DIMER REVIEWED BUN17/CR1.2 IMP ACUTE HYPOXEMIC RESPIRATORY FAILURE MODERATE INDEX OF SUSPICION FOR PE SIRS PNEUMONIA HTN ASHD S/P STENT X5 ACUTE KIDNEY INJURY IMPROVED ELEVATED LACTATE LEVEL PLAN CTA R/O PE (CR/BUN IMPROVED) IV ANTIBIOTICS INHALED BRONCHODILATORS STEROIDS HEPARIN SUPPLEMENTAL O2 TREND LACTATE R COLLEEN ESCOBEDO
--- NOTE | 2016-09-01 10:27 | PN ---
Progress Note, Physician History of Present Illness: seen and examined today in [facility]. c/o continued productive cough and sob. no overnight events. no new complaints. - Current Medication List Current Medications: Active Medications Albuterol Sulfate (Ventolin 0.083% Nebulizer Soln -) 1 amp NEB Q4H PRN PRN Reason: SHORT OF BREATH/WHEEZING Albuterol/Ipratropium (Duoneb -) 1 amp NEB QIDR [facility] Last Admin: 09/01/16 06:29 Dose: 1 amp Aspirin (Asa -) 81 mg PO DAILY [facility] Last Admin: 08/31/16 16:45 Dose: 81 mg Ceftriaxone Sodium (Rocephin 1gm Ivpb (Pre-Docked)) 1 gm IVPB DAILY [facility] Heparin Sodium/Dextrose (Heparin Infusion -) 500 mls @ 16 mls/hr IVPB TITR [facility] ; 800 UNITS/HR PRN Reason: Protocol Last Admin: 09/01/16 02:12 Dose: 10 mls/hr Azithromycin 250 mg/ Dextrose 250 mls @ 250 mls/hr IVPB DAILY [facility] Methylprednisolone Sodium Succinate (Solu-Medrol -) 40 mg IVPB Q6H-IV [facility] Last Admin: 09/01/16 02:35 Dose: 40 mg - Objective Vital Signs: Vital Signs Temperature 97.8 F 09/01/16 06:00 Pulse Rate 79 09/01/16 06:00 Respiratory Rate 20 09/01/16 06:00 Blood Pressure 155/79 09/01/16 06:00 O2 Sat by Pulse Oximetry (%) 90 L 08/31/16 21:00 Constitutional: Yes: Well Nourished, No Distress, Calm Eyes: Yes: WNL, Conjunctiva Clear, EOM Intact, PERRL HENT: Yes: WNL, Atraumatic, Normocephalic Neck: Yes: WNL, Supple, Trachea Midline Cardiovascular: Yes: Regular Rate and Rhythm, Murmur, S1, S2. No: Bradycardia, Tachycardia, Pulse Irregular, Bruit, JVD, Gallop, Rub, S3, S4, Varicosities Respiratory: Yes: Regular, On Nasal O2, Rhonchi. No: Rales, Wheezes Gastrointestinal: Yes: WNL, Normal Bowel Sounds, Soft. No: Distention, Tenderness Musculoskeletal: Yes: WNL Extremities: Yes: WNL Edema: No Peripheral Pulses WNL: Yes Peripheral Pulses: Left Doralis Pedis: 2+, Right Dorsalis Pedis: 2+ Integumentary: Yes: WNL Neurological: Yes: Alert, Oriented Psychiatric: Yes: Alert, Oriented Labs: CBC, BMP 09/01/16 06:00 09/01/16 06:00 INR, PTT INR 1.02 (0.82-1.09) 08/31/16 09:45 - ....Imaging Chest X-ray: Report Reviewed, Image Reviewed EKG: Report Reviewed, Image Reviewed Other: Report Reviewed, Image Reviewed (tele-nsr, pvcs, sinus tach) Assessment/Plan 86 year old woman with a history of HTN, CAD with reported 5 stents in the past (unknown details), anemia, admitted with sob, productive cough, severe hypoxia 1. RML PNA on CT 2. Profound hypoxia, out of proportion to infiltrate size/extent 3. Concern for pulmonary embolism 4. HTN with CKD 5. Aortic stenosis REC: Echo showed normal LV systolic function, mod to sev , mild mr, mild tr, mild AR, trivial pericardial effusion Supplimental O2. Abx for PNA. Pulmonary f/up Pt on heparin gtt for concern for PE, consider CTA or V/Q if concern for PE Echo showed normal RV size and function Pt is euvolemic, does not require diuresis currently Outpatient follow for aortic stenosis
[2016-09-01] MEDS: cefTRIAXone 1 GM/50 ML BAG (PRE-DOCKED) IVPB SCH (11:06)
[2016-09-01] MEDS: ASPIRIN 81 MG CHEWABLE TABLETS PO SCH (11:07)
[2016-09-01] MEDS: AZITHROMYCIN IVPB 250 MG in DEXTROSE 5%-WATER - 250 ML IVPB SCH (11:33)
[2016-09-02] MEDS ORDERED: HEPARIN NA (PORCINE) 5,000 UNITS/ML 1ML VIAL IVPUSH PRN ×2 (00:04)
[2016-09-02] MEDS: methylPREDNISolone NA SUCC 40 MG/1 ML VIAL IVPB SCH ×3 (03:53→17:56)
[2016-09-02] MEDS: ALBUTEROL SO4 2.5/IPRATROPIUM 0.5 INH SOL 3 ML VIAL.NEB. NEB SCH ×4 (06:25→23:20)
[2016-09-02] MEDS: ASPIRIN 81 MG CHEWABLE TABLETS PO SCH (09:04)
[2016-09-02] MEDS: cefTRIAXone 1 GM/50 ML BAG (PRE-DOCKED) IVPB SCH (09:04)
[2016-09-02] MEDS: AZITHROMYCIN IVPB 250 MG in DEXTROSE 5%-WATER - 250 ML IVPB SCH (11:17)
--- NOTE | 2016-09-02 11:29 | PN ---
Progress Note (short form) - Note Progress Note: PULMONARY COMPLAINING OF POST-NASAL DRIP HARSH COUGH CONTINUES VSS/AFEBRILE ANICTERIC DIMINISHED BREATH SOUNDS B/L S1S2 BS+ NO EDEMA LABS/MEDS/NOTES/IMAGING/MICRO/D-DIMER REVIEWED CTA NO PE/BIBASILAR INFILTRATES NOTED IMP ACUTE HYPOXEMIC RESPIRATORY FAILURE NO PE SIRS PNEUMONIA HTN ASHD S/P STENT X5 ACUTE KIDNEY INJURY IMPROVED ELEVATED LACTATE LEVEL PLAN STOP HEPARIN DRIP IV ANTIBIOTICS INHALED BRONCHODILATORS STEROIDS TAPERING DVT PROPHYLAXSIS SUPPLEMENTAL O2 NEEDED LACTATE TRENDING DOWN Alena MACIAS MD
--- NOTE | 2016-09-02 11:33 | PN ---
Progress Note, Physician History of Present Illness: seen and examined today in [facility]. no overnight events. no new complaints. feels about the same, coughing, congested. - Current Medication List Current Medications: Active Medications Albuterol Sulfate (Ventolin 0.083% Nebulizer Soln -) 1 amp NEB Q4H PRN PRN Reason: SHORT OF BREATH/WHEEZING Albuterol/Ipratropium (Duoneb -) 1 amp NEB QIDR [facility] Last Admin: 09/02/16 06:25 Dose: 1 amp Aspirin (Asa -) 81 mg PO DAILY [facility] Last Admin: 09/02/16 09:04 Dose: 81 mg Ceftriaxone Sodium (Rocephin 1gm Ivpb (Pre-Docked)) 1 gm IVPB DAILY [facility] Last Admin: 09/02/16 09:04 Dose: 1 gm Azithromycin 250 mg/ Dextrose 250 mls @ 250 mls/hr IVPB DAILY [facility] Last Admin: 09/02/16 11:17 Dose: 250 mls/hr Methylprednisolone Sodium Succinate (Solu-Medrol -) 40 mg IVPB Q8H-IV [facility] - Objective Vital Signs: Vital Signs Temperature 98.3 F 09/02/16 09:06 Pulse Rate 95 H 09/02/16 09:06 Respiratory Rate 20 09/02/16 09:06 Blood Pressure 164/69 09/02/16 09:06 O2 Sat by Pulse Oximetry (%) 90 L 09/01/16 22:00 Constitutional: Yes: Well Nourished, No Distress, Calm Eyes: Yes: WNL, Conjunctiva Clear, EOM Intact, PERRL HENT: Yes: WNL, Atraumatic, Normocephalic Neck: Yes: WNL, Supple, Trachea Midline Cardiovascular: Yes: Regular Rate and Rhythm, S1, S2. No: Bradycardia, Tachycardia, Pulse Irregular, Bruit, JVD, Gallop, Murmur, Rub, S3, S4, Varicosities Respiratory: Yes: Regular, Rhonchi. No: Rales, Wheezes Gastrointestinal: Yes: WNL, Normal Bowel Sounds, Soft. No: Distention, Tenderness Musculoskeletal: Yes: WNL Extremities: Yes: WNL Edema: No Peripheral Pulses WNL: Yes Peripheral Pulses: Left Doralis Pedis: 2+, Right Dorsalis Pedis: 2+ Integumentary: Yes: WNL Neurological: Yes: WNL, Alert, Oriented, Cran Nerves II-XII Intact ...Motor Strength: WNL Psychiatric: Yes: WNL, Alert, Oriented Labs: CBC, BMP 09/01/16 06:00 09/01/16 06:00 INR, PTT INR 1.02 (0.82-1.09) 08/31/16 09:45 - ....Imaging Chest X-ray: Report Reviewed, Image Reviewed EKG: Report Reviewed, Image Reviewed Other: Report Reviewed, Image Reviewed (tele-nsr, sinus tach, pvcs, very brief psvt, apcs) Assessment/Plan 86 year old woman with a history of HTN, CAD with reported 5 stents in the past (unknown details), anemia, admitted with sob, productive cough, severe hypoxia. 1. RML PNA on CT 2. Profound hypoxia 3. Initial concern for pulmonary embolism, not seen on CTA chest 4. HTN with CKD 5. Aortic stenosis REC: Echo showed normal LV systolic function, mod to sev , mild mr, mild tr, mild AR, trivial pericardial effusion, normal RV size and function Supplimental O2. Abx for PNA. CTA done-reportedly no evidence of PE, full AC can likely be stopped Pt is euvolemic, does not require diuresis currently Outpatient follow for aortic stenosis Ok to dc telemetry, no sig arrhythmias, only very short few beats psvt
[2016-09-02 18:17] LABS: MCH 20.6 pg (25.7-33.7); MCHC 30.7 g/dl (32.0-36.0); MEAN CELL VOLUME 67.1 fl (80-96); MEAN PLT VOLUME 8.5 fl (7.5-11.1); PLATELET COUNT 183 K/MM3 (134-434); RDW 16.5 % (11.6-15.6); WHITE BLOOD COUNT 12.9 K/mm3 (4.0-10.0)
[2016-09-02 18:35] LABS: ALBUMIN 2.9 g/dl (3.4-5.0); CREATININE 1.2 mg/dL (0.55-1.02)
[2016-09-02 18:37] LABS: BILIRUBIN,TOTAL 0.1 mg/dL (0.2-1.0); TOT PROT 6.5 g/dl (6.4-8.2)
[2016-09-02] MEDS: NIFEdipine E.R 60 MG TABLET (UD) PO SCH (18:45)
--- NOTE | 2016-09-02 23:04 | PN ---
Progress Note, Physician Chief Complaint: No new complaints History of Present Illness: No new changes - Current Medication List Current Medications: Active Medications Albuterol Sulfate (Ventolin 0.083% Nebulizer Soln -) 1 amp NEB Q4H PRN PRN Reason: SHORT OF BREATH/WHEEZING Albuterol/Ipratropium (Duoneb -) 1 amp NEB QIDR [facility] Last Admin: 09/02/16 17:44 Dose: 1 amp Aspirin (Asa -) 81 mg PO DAILY [facility] Last Admin: 09/02/16 09:04 Dose: 81 mg Ceftriaxone Sodium (Rocephin 1gm Ivpb (Pre-Docked)) 1 gm IVPB DAILY [facility] Last Admin: 09/02/16 09:04 Dose: 1 gm Azithromycin 250 mg/ Dextrose 250 mls @ 250 mls/hr IVPB DAILY [facility] Last Admin: 09/02/16 11:17 Dose: 250 mls/hr Methylprednisolone Sodium Succinate (Solu-Medrol -) 40 mg IVPB Q8H-IV [facility] Last Admin: 09/02/16 17:56 Dose: 40 mg Nifedipine (Procardia Xl -) 60 mg PO DAILY [facility] Last Admin: 09/02/16 18:45 Dose: 60 mg - Objective Vital Signs: Vital Signs Temperature 98.0 F 09/02/16 19:57 Pulse Rate 100 H 09/02/16 19:57 Respiratory Rate 18 09/02/16 19:57 Blood Pressure 140/66 09/02/16 19:57 O2 Sat by Pulse Oximetry (%) 90 L 09/01/16 22:00 Constitutional: Yes: No Distress Neck: Yes: Supple Cardiovascular: Yes: Tachycardia Respiratory: Yes: Rhonchi Gastrointestinal: Yes: WNL, Normal Bowel Sounds, Soft Labs: CBC, BMP 09/02/16 17:45 09/02/16 17:45 INR, PTT INR 1.02 (0.82-1.09) 08/31/16 09:45 Problem List - Problems (1) Hypoxia Code(s): R09.02 - HYPOXEMIA (2) Pneumonia Assessment/Plan: Cont IV zithro/ceftriaxone Cont nebulizers WBC was normal Multilobar infiltrates on cta chest Code(s): J18.9 - PNEUMONIA, UNSPECIFIED ORGANISM
[2016-09-03] MEDS: methylPREDNISolone NA SUCC 40 MG/1 ML VIAL IVPB SCH ×3 (02:27→18:34)
[2016-09-03] MEDS: ALBUTEROL SO4 2.5/IPRATROPIUM 0.5 INH SOL 3 ML VIAL.NEB. NEB SCH ×4 (06:50→23:02)
[2016-09-03 08:25] LABS: BASOPHIL 0.1 % (0-2.0); EOSINOPHIL 0.1 % (0-4.5); MCH 20.9 pg (25.7-33.7); MEAN CELL VOLUME 67.4 fl (80-96); MEAN PLT VOLUME 8.1 fl (7.5-11.1); NEUTROPHILS 90.7 % (42.8-82.8); PLATELET COUNT 178 K/MM3 (134-434); RDW 16.6 % (11.6-15.6); WHITE BLOOD COUNT 12.1 K/mm3 (4.0-10.0)
[2016-09-03] MEDS ORDERED: PT OWN MED DRAWER 7, Y5N ONE (08:54)
[2016-09-03] MEDS: ASPIRIN 81 MG CHEWABLE TABLETS PO SCH (09:03)
[2016-09-03] MEDS: cefTRIAXone 1 GM/50 ML BAG (PRE-DOCKED) IVPB SCH (09:03)
[2016-09-03] MEDS: NIFEdipine E.R 60 MG TABLET (UD) PO SCH (09:03)
[2016-09-03 09:24] LABS: ALBUMIN 2.9 g/dl (3.4-5.0); BILIRUBIN,TOTAL 0.2 mg/dL (0.2-1.0); CALCIUM 8.1 mg/dL (8.5-10.1); CREATININE 1.1 mg/dL (0.55-1.02); TOT PROT 6.3 g/dl (6.4-8.2)
[2016-09-03] MEDS: AZITHROMYCIN IVPB 250 MG in DEXTROSE 5%-WATER - 250 ML IVPB SCH (09:35)
[2016-09-03 10:50] LABS: HYPOCHROMIA 2+; MICROCYTOSIS 1+; OVALOCYTES 1+; TARGET CELLS 1+
[2016-09-03 10:51] LABS: ANISOCYTOSIS 3+; POIKILOCYTOSIS 1+; SCHISTOCYTES FEW
--- NOTE | 2016-09-03 11:41 | PN ---
Progress Note, Physician History of Present Illness: seen and examined today in [facility]. still has mild cough, congestion. no overnight events. no new complaints. - Current Medication List Current Medications: Active Medications Albuterol Sulfate (Ventolin 0.083% Nebulizer Soln -) 1 amp NEB Q4H PRN PRN Reason: SHORT OF BREATH/WHEEZING Albuterol/Ipratropium (Duoneb -) 1 amp NEB QIDR [facility] Last Admin: 09/03/16 06:50 Dose: Not Given Aspirin (Asa -) 81 mg PO DAILY [facility] Last Admin: 09/03/16 09:03 Dose: 81 mg Ceftriaxone Sodium (Rocephin 1gm Ivpb (Pre-Docked)) 1 gm IVPB DAILY [facility] Last Admin: 09/03/16 09:03 Dose: 1 gm Azithromycin 250 mg/ Dextrose 250 mls @ 250 mls/hr IVPB DAILY [facility] Last Admin: 09/03/16 09:35 Dose: 250 mls/hr Methylprednisolone Sodium Succinate (Solu-Medrol -) 40 mg IVPB Q8H-IV [facility] Last Admin: 09/03/16 09:04 Dose: 40 mg Nifedipine (Procardia Xl -) 60 mg PO DAILY [facility] Last Admin: 09/03/16 09:03 Dose: 60 mg - Objective Vital Signs: Vital Signs Temperature 97.8 F 09/03/16 06:00 Pulse Rate 84 09/03/16 09:05 Respiratory Rate 22 09/03/16 09:05 Blood Pressure 150/93 09/03/16 09:05 O2 Sat by Pulse Oximetry (%) 90 L 09/01/16 22:00 Constitutional: Yes: Well Nourished, No Distress, Calm Eyes: Yes: WNL, Conjunctiva Clear, EOM Intact, PERRL HENT: Yes: WNL, Atraumatic, Normocephalic Neck: Yes: WNL, Supple, Trachea Midline Cardiovascular: Yes: Regular Rate and Rhythm, Murmur, S1, S2. No: Bradycardia, Tachycardia, Pulse Irregular, Bruit, JVD, Gallop, Rub, S3, S4, Varicosities, Other Respiratory: Yes: Regular, Cough, Diminished, On Nasal O2, Rhonchi, Wheezes. No : Rales, SOB Gastrointestinal: Yes: WNL, Normal Bowel Sounds, Soft. No: Distention, Tenderness Musculoskeletal: Yes: WNL Extremities: Yes: WNL Edema: No Peripheral Pulses WNL: Yes Peripheral Pulses: Left Doralis Pedis: 2+, Right Dorsalis Pedis: 2+ Integumentary: Yes: WNL Neurological: Yes: WNL, Alert, Oriented, Cran Nerves II-XII Intact Psychiatric: Yes: WNL, Alert, Oriented Labs: CBC, BMP 09/03/16 06:05 09/03/16 06:05 INR, PTT INR 1.02 (0.82-1.09) 08/31/16 09:45 - ....Imaging Chest X-ray: Report Reviewed, Image Reviewed EKG: Report Reviewed, Image Reviewed Other: Report Reviewed, Image Reviewed (tele-nsr, pvcs, apcs, very brief episodes of psvt) Assessment/Plan 86 year old woman with a history of HTN, CAD with reported 5 stents in the past (unknown details), anemia, admitted with sob, productive cough, severe hypoxia. 1. RML PNA on CT 2. Profound hypoxia 3. Initial concern for pulmonary embolism, not seen on CTA chest 4. HTN with CKD 5. Aortic stenosis REC: Echo showed normal LV systolic function, mod to sev , mild mr, mild tr, mild AR, trivial pericardial effusion, normal RV size and function Supplimental O2. Abx for PNA. CTA done-reportedly no evidence of PE, full AC stopped, start DVT ppx as appropriate Pt is euvolemic, does not require diuresis HTN variable, low normal on admission, anti-HTN meds held for possible sepsis, BP trended up yesterday, Nifedipine XL 60mg started (takes 90mg at home) Hold losartan for now for elevated creatinine on admission If BP again above goal can uptitrate nifedipine to home dose of 90mg and can resume home Metoprolol Outpatient follow for aortic stenosis Ok to dc telemetry, no sig arrhythmias, only very short few beats psvt
--- NOTE | 2016-09-03 11:45 | PN ---
Progress Note, Physician History of Present Illness: PULMONARY ALERT,FEELING BETTER,LESS CONGESTED - Current Medication List Current Medications: Active Medications Albuterol Sulfate (Ventolin 0.083% Nebulizer Soln -) 1 amp NEB Q4H PRN PRN Reason: SHORT OF BREATH/WHEEZING Albuterol/Ipratropium (Duoneb -) 1 amp NEB QIDR [facility] Last Admin: 09/03/16 06:50 Dose: Not Given Aspirin (Asa -) 81 mg PO DAILY [facility] Last Admin: 09/03/16 09:03 Dose: 81 mg Ceftriaxone Sodium (Rocephin 1gm Ivpb (Pre-Docked)) 1 gm IVPB DAILY [facility] Last Admin: 09/03/16 09:03 Dose: 1 gm Azithromycin 250 mg/ Dextrose 250 mls @ 250 mls/hr IVPB DAILY [facility] Last Admin: 09/03/16 09:35 Dose: 250 mls/hr Methylprednisolone Sodium Succinate (Solu-Medrol -) 40 mg IVPB Q8H-IV [facility] Last Admin: 09/03/16 09:04 Dose: 40 mg Nifedipine (Procardia Xl -) 60 mg PO DAILY [facility] Last Admin: 09/03/16 09:03 Dose: 60 mg - Objective Vital Signs: Vital Signs Temperature 97.8 F 09/03/16 06:00 Pulse Rate 84 09/03/16 09:05 Respiratory Rate 22 09/03/16 09:05 Blood Pressure 150/93 09/03/16 09:05 O2 Sat by Pulse Oximetry (%) 90 L 09/01/16 22:00 Constitutional: Yes: Well Nourished, Calm Eyes: Yes: WNL HENT: Yes: WNL Neck: Yes: WNL Cardiovascular: Yes: Regular Rate and Rhythm, S1, S2 Respiratory: Yes: Rhonchi (BILATERAL RHONCHI) Gastrointestinal: Yes: Normal Bowel Sounds, Soft Extremities: Yes: WNL Edema: No Labs: CBC, BMP 09/03/16 06:05 09/03/16 06:05 INR, PTT INR 1.02 (0.82-1.09) 08/31/16 09:45 - ....Imaging Cat Scan: Report Reviewed, Image Reviewed Problem List - Problems (1) Cough Code(s): R05 - COUGH (2) Hypoxia Code(s): R09.02 - HYPOXEMIA (3) Acute kidney injury Code(s): N17.9 - ACUTE KIDNEY FAILURE, UNSPECIFIED (4) Acute hypoxemic respiratory failure Code(s): J96.01 - ACUTE RESPIRATORY FAILURE WITH HYPOXIA (5) Pneumonia Code(s): J18.9 - PNEUMONIA, UNSPECIFIED ORGANISM (6) Lactate blood increased Code(s): E87.2 - ACIDOSIS Assessment/Plan IMP ACUTE HYPOXEMIC RESPIRATORY FAILURE PNEUMONIA HTN ASHD S/P STENT X5 ACUTE KIDNEY INJURY ELEVATED LACTATE LEVEL NORMAL PLAN IV ANTIBIOTICS INHALED BRONCHODILATORS STEROIDS HEPARIN SUPPLEMENTAL O2 ID EVALUATION DR RICHARDSON
--- NOTE | 2016-09-03 12:36 | PN ---
Progress Note (short form) - Note Progress Note: ID Consult dictated Bilateral pneumonia Possible sepsis secondary to pneumonia S/P Leukopenia - secondary to viral infection v. sepsis Check sputum c/s, urine legionella/ pneumococcal ag Continue empiric zithromax/ ceftriaxone
[2016-09-03] MEDS: guaiFENesin 200 MG/10 ML 10 ML UNIT-DOSE CUPS PO PRN (14:19)
--- NOTE | 2016-09-03 16:14 | CONS ---
DATE OF CONSULTATION: DATE OF DICTATION: 09/03/2016 An 86-year-old female evaluated for pneumonia. The patient was admitted to the hospital with several days history of cough. Patient reported cough productive of whitish sputum for several days, which worsened over the 2 days prior to admission. She had seen her primary doctor as an outpatient and was diagnosed with pneumonia. She was prescribed Levaquin. Patient clinically worsened, with increasing cough and shortness of breath. She developed fever. She presented to the hospital, where she was admitted with a diagnosis of pneumonia. At the present time she complains of persistent cough, white sputum production, and left-sided pleuritic type chest pain. She lives at home. She reports being exposed to persons with respiratory tract infection. She had not received influenza vaccine. She is a nonsmoker. On admission, a CAT scan showed a right middle lobe infiltrate as well as bibasilar infiltrates. She continues to have hypoxemia and a CT angio was performed and was negative for pulmonary embolism. Past medical history positive for coronary artery disease, hypertension, chronic anemia, diverticulosis. PAST SURGICAL HISTORY: Status post bilateral total hip replacements, status post appendectomy. No known allergies. MEDICATIONS: Cozaar, Procardia, meclizine, metoprolol. SOCIAL HISTORY: Nonsmoker, nondrinker. SYSTEMS REVIEW: Neurologic: No seizure activity, loss of consciousness, or focal weakness. Cardiac: Positive for left-sided pleuritic type chest pain. Respiratory: As per HPI. Gastrointestinal: Negative vomiting or diarrhea. Genitourinary: Negative for urinary tract infection. LABORATORY DATA: White count 12.1, hematocrit 35.0, platelet count 178. BUN 23, creatinine 1.1. Blood and urine cultures pending. Urinalysis: 2 white cells. Influenza swab negative. PHYSICAL EXAMINATION: General: Patient is awake and alert, she is in moderate distress secondary to persistent cough, slightly dyspneic at rest, on nasal cannula O2. Vital Signs: Temperature 97.8. Blood pressure 150/93. Pulse , regular. Respiration 22 per minute. Eyes: Sclerae anicteric. Heart Sounds: S1, S2. A 2/6 pansystolic murmur. Lungs: Rales at the bases bilaterally. Scattered rhonchi. Abdomen: Soft. No tenderness elicited. No mass, rebound or rigidity. Extremities: Negative for edema. IMPRESSION: 1. Bilateral pneumonia, community acquired versus atypical. 2. Possible sepsis secondary to pneumonia. 3. Leukocytosis. 4. Coronary artery disease. Will obtain sputum culture, urine Legionella, and pneumococcal antigen. Continue empiric coverage with Zithromax and ceftriaxone. Suspect the patient may have had a component of post-viral pneumonia in light of recent leukopenia. If clinical response suboptimal, will add vancomycin for increased staphylococcus coverage for possible post-viral staphylococcus pneumonia. Continue inhaled bronchodilators and corticosteroids. Will follow. Thank you for the kind referral. AZEEM SOLANO M.D. [id number]
--- NOTE | 2016-09-03 19:30 | PN ---
Progress Note, Physician History of Present Illness: Pt w/hypoxia and O2 sat 92% Pt to use BIPAP tonight However after speaking w/ pt and daughter, pt is not taking deep breathes bc of cough - Current Medication List Current Medications: Active Medications Albuterol Sulfate (Ventolin 0.083% Nebulizer Soln -) 1 amp NEB Q4H PRN PRN Reason: SHORT OF BREATH/WHEEZING Albuterol/Ipratropium (Duoneb -) 1 amp NEB QIDR [facility] Last Admin: 09/03/16 17:38 Dose: 1 amp Aspirin (Asa -) 81 mg PO DAILY [facility] Last Admin: 09/03/16 09:03 Dose: 81 mg Ceftriaxone Sodium (Rocephin 1gm Ivpb (Pre-Docked)) 1 gm IVPB DAILY [facility] Last Admin: 09/03/16 09:03 Dose: 1 gm Guaifenesin (Robitussin -) 10 ml PO Q6H PRN PRN Reason: COUGH Last Admin: 09/03/16 14:19 Dose: 10 ml Azithromycin 250 mg/ Dextrose 250 mls @ 250 mls/hr IVPB DAILY [facility] Last Admin: 09/03/16 09:35 Dose: 250 mls/hr Methylprednisolone Sodium Succinate (Solu-Medrol -) 40 mg IVPB Q8H-IV [facility] Last Admin: 09/03/16 18:34 Dose: 40 mg Nifedipine (Procardia Xl -) 60 mg PO DAILY [facility] Last Admin: 09/03/16 09:03 Dose: 60 mg - Objective Vital Signs: Vital Signs Temperature 97.8 F 09/03/16 15:00 Pulse Rate 85 09/03/16 15:00 Respiratory Rate 18 09/03/16 15:00 Blood Pressure 126/73 09/03/16 15:00 O2 Sat by Pulse Oximetry (%) 92 L 09/03/16 11:45 Neck: Yes: Supple Cardiovascular: Yes: Tachycardia Respiratory: Yes: Rhonchi Gastrointestinal: Yes: WNL, Normal Bowel Sounds, Soft Labs: CBC, BMP 09/03/16 06:05 09/03/16 06:05 INR, PTT INR 1.02 (0.82-1.09) 08/31/16 09:45 Problem List - Problems (1) Acute hypoxemic respiratory failure Assessment/Plan: Pt w/ multilobar pneumonia Pt still hypoxic and will try BIPAP Pt encouraged to take deep breathes Cont IV ceftriaxone/zithro/steroids Cont nebulizers Code(s): J96.01 - ACUTE RESPIRATORY FAILURE WITH HYPOXIA (2) HTN (hypertension) Assessment/Plan: Procardia added due to slight increase in BP Cont to monitor Code(s): I10 - ESSENTIAL (PRIMARY) HYPERTENSION
[2016-09-04] MEDS: methylPREDNISolone NA SUCC 40 MG/1 ML VIAL IVPB SCH ×3 (01:01→21:09)
[2016-09-04] MEDS: guaiFENesin 200 MG/10 ML 10 ML UNIT-DOSE CUPS PO PRN ×2 (01:01→21:09)
[2016-09-04] MEDS: ALBUTEROL SO4 2.5/IPRATROPIUM 0.5 INH SOL 3 ML VIAL.NEB. NEB SCH ×4 (05:37→23:11)
[2016-09-04] MEDS ORDERED: PT OWN MED DRAWER 7, Y5N ONE (09:17)
[2016-09-04] MEDS: AZITHROMYCIN IVPB 250 MG in DEXTROSE 5%-WATER - 250 ML IVPB SCH (09:25)
[2016-09-04] MEDS: NIFEdipine E.R 60 MG TABLET (UD) PO SCH (09:25)
[2016-09-04] MEDS: ASPIRIN 81 MG CHEWABLE TABLETS PO SCH (09:26)
[2016-09-04] MEDS: cefTRIAXone 1 GM/50 ML BAG (PRE-DOCKED) IVPB SCH (09:27)
--- NOTE | 2016-09-04 10:08 | CONS ---
DATE OF CONSULTATION: 08/31/2016 REFERRING PHYSICIAN: Batsheva Cortes MD HISTORY: The patient is an 86-year-old [place] female with past medical history of ASHD status post stents x5, hypertension, anemia, diverticulosis, nonsmoker admitted to [facility] with the complaint of increasing shortness of breath and chest congestion. The patient apparently recently was treated for pneumonia as an outpatient. She went to see her PMD yesterday where she was diagnosed with pneumonia after an x-ray. She was discharged. She was started on antibiotic therapy. Apparently for the past week or so she has had an intermittent cough, chest congestion, and shortness of breath, but over the past 2 days, it has increased in severity. The cough is productive of white sputum. There is no hemoptysis. Apparently the patient's had similar system recently, which has since resolved. The patient also had a fever last night of 101 orally. There were no chest pain or palpitations. There was shortness of breath, cough, and some bronchospasm. She denies any nausea, vomiting, or diaphoresis. She denies hemoptysis. In the emergency room she presented with an O2 saturation of 73% on room air. She was placed on supplemental O2. On admission, she was started on antibiotic therapy. She underwent a CT scan of the chest, which revealed evidence of peribronchial thickening and linear opacities in the right cardiophrenic angle. There were also some increasing markings on the left. There was no pulmonary venous congestion or pulmonary effusions appreciated. As stated before, the patient is a nonsmoker. There is no history of occupational exposures. She denies any history of recent travel. No history of DVT or PE in the past. There is no history of respiratory failure and placed on ventilatory support. PAST MEDICAL HISTORY: Again, includes ASHD status post stents x5, hypertension, anemia, diverticulosis, history of bilateral total hip replacement, appendectomy. SOCIAL HISTORY: Nonsmoker. Born in the [facility] and moved to the [place] many years ago. No history of ETOH. REVIEW OF SYSTEMS: Positive shortness of breath. Positive cough. Positive chest congestion. Positive fever. No nausea, no vomiting. No chest pain, no palpitations, no lower extremity edema. PHYSICAL EXAMINATION: General: The patient is an elderly female well-developed, awake, alert in no acute distress. Vital Signs: She is currently afebrile. O2 saturation 87% on 2 L, blood pressure 120/62, respiratory rate 22. HEENT: Normocephalic and atraumatic. Neck: Supple. Heart: Tachycardic with a normal S1, S2. Chest: Bilateral rhonchi. Scattered wheezes and bibasilar crackles. Abdomen: Soft. Bowel sounds are positive. Extremities: No cyanosis or edema. LABORATORIES: WBC 4.8, hemoglobin 11.5, hematocrit 37.3 with platelet count of 170,000. INR 1.02. Blood gas: PH 7.40, PCO2 of 30 with a PO2 of 55, bicarbonate 23, saturation at 88 on 3 L. BUN 25, creatinine 1.7, lactate level 2.352. BNP 966. Chest CT as noted earlier. She underwent a vascular, no evidence of DVT. IMPRESSION: 1. Acute hypoxemic respiratory failure ,systemic inflammatory response syndrome. 2. Pneumonia. 3. Acute viral bronchitis. 4. Possible pulmonary emboli in view of his marked hypoxemia. 5. Arteriosclerotic heart disease status post stents. 6. History of hypertension. PLAN: IV steroids, inhaled bronchodilators, supplemental O2, antibiotic therapy. Obtain echocardiogram. IV fluids. Trend lactate. Obtain cultures. Also check cardiac enzymes. Monitor O2 saturations. ANNEL RICHARDSON M.D. [place]/[id number] MTDD
--- NOTE | 2016-09-04 11:30 | PN ---
Progress Note, Physician History of Present Illness: pulmonary alert,oob-chair,less dyspneic,+cough - Current Medication List Current Medications: Active Medications Albuterol Sulfate (Ventolin 0.083% Nebulizer Soln -) 1 amp NEB Q4H PRN PRN Reason: SHORT OF BREATH/WHEEZING Albuterol/Ipratropium (Duoneb -) 1 amp NEB QIDR [facility] Last Admin: 09/04/16 10:40 Dose: 1 amp Aspirin (Asa -) 81 mg PO DAILY [facility] Last Admin: 09/04/16 09:26 Dose: 81 mg Ceftriaxone Sodium (Rocephin 1gm Ivpb (Pre-Docked)) 1 gm IVPB DAILY [facility] Last Admin: 09/04/16 09:27 Dose: 1 gm Guaifenesin (Robitussin -) 10 ml PO Q6H PRN PRN Reason: COUGH Last Admin: 09/04/16 01:01 Dose: 10 ml Azithromycin 250 mg/ Dextrose 250 mls @ 250 mls/hr IVPB DAILY [facility] Last Admin: 09/04/16 09:25 Dose: 250 mls/hr Methylprednisolone Sodium Succinate (Solu-Medrol -) 40 mg IVPB Q8H-IV [facility] Last Admin: 09/04/16 09:25 Dose: 40 mg Nifedipine (Procardia Xl -) 60 mg PO DAILY [facility] Last Admin: 09/04/16 09:25 Dose: 60 mg - Objective Vital Signs: Vital Signs Temperature 97.2 F L 09/04/16 06:00 Pulse Rate 75 09/04/16 10:20 Respiratory Rate 22 09/04/16 06:00 Blood Pressure 136/85 09/04/16 06:00 O2 Sat by Pulse Oximetry (%) 93 L 09/04/16 10:25 Constitutional: Yes: Well Nourished, Calm Eyes: Yes: WNL HENT: Yes: WNL Neck: Yes: WNL Cardiovascular: Yes: Regular Rate and Rhythm, S1, S2 Respiratory: Yes: Rales (bilateral crackles ,few rhonchi) Gastrointestinal: Yes: Normal Bowel Sounds, Soft Extremities: Yes: WNL Edema: No Labs: CBC, BMP Problem List - Problems (1) Cough Code(s): R05 - COUGH (2) Hypoxia Code(s): R09.02 - HYPOXEMIA (3) Acute kidney injury Code(s): N17.9 - ACUTE KIDNEY FAILURE, UNSPECIFIED (4) Acute hypoxemic respiratory failure Code(s): J96.01 - ACUTE RESPIRATORY FAILURE WITH HYPOXIA (5) Pneumonia Code(s): J18.9 - PNEUMONIA, UNSPECIFIED ORGANISM (6) Lactate blood increased Code(s): E87.2 - ACIDOSIS Assessment/Plan IMP ACUTE HYPOXEMIC RESPIRATORY FAILURE PNEUMONIA HTN ASHD S/P STENT X5 ACUTE KIDNEY INJURY ELEVATED LACTATE LEVEL NORMAL PLAN IV ANTIBIOTICS INHALED BRONCHODILATORS STEROID TAPER SUPPLEMENTAL O2 DR RICHARDSON
--- NOTE | 2016-09-04 16:00 | PN ---
Progress Note, Physician History of Present Illness: OOB in chair Mildly tachypneic at rest Less cough Afebrile WBC mildly elevated - Current Medication List Current Medications: Active Medications Albuterol Sulfate (Ventolin 0.083% Nebulizer Soln -) 1 amp NEB Q4H PRN PRN Reason: SHORT OF BREATH/WHEEZING Albuterol/Ipratropium (Duoneb -) 1 amp NEB QIDR [facility] Last Admin: 09/04/16 10:40 Dose: 1 amp Aspirin (Asa -) 81 mg PO DAILY [facility] Last Admin: 09/04/16 09:26 Dose: 81 mg Ceftriaxone Sodium (Rocephin 1gm Ivpb (Pre-Docked)) 1 gm IVPB DAILY [facility] Last Admin: 09/04/16 09:27 Dose: 1 gm Guaifenesin (Robitussin -) 10 ml PO Q6H PRN PRN Reason: COUGH Last Admin: 09/04/16 01:01 Dose: 10 ml Azithromycin 250 mg/ Dextrose 250 mls @ 250 mls/hr IVPB DAILY [facility] Last Admin: 09/04/16 09:25 Dose: 250 mls/hr Methylprednisolone Sodium Succinate (Solu-Medrol -) 40 mg IVPB BID [facility] Nifedipine (Procardia Xl -) 60 mg PO DAILY [facility] Last Admin: 09/04/16 09:25 Dose: 60 mg - Objective Vital Signs: Vital Signs Temperature 98.1 F 09/04/16 14:20 Pulse Rate 87 09/04/16 14:20 Respiratory Rate 22 09/04/16 14:20 Blood Pressure 116/65 09/04/16 14:20 O2 Sat by Pulse Oximetry (%) 93 L 09/04/16 10:25 Constitutional: Yes: No Distress Eyes: Yes: Conjunctiva Clear Cardiovascular: Yes: Regular Rate and Rhythm, S1, S2 Respiratory: Yes: Other (+ bilateral crepitations, rhonchi) Gastrointestinal: Yes: Normal Bowel Sounds, Soft. No: Tenderness Edema: No Labs: CBC, BMP 09/03/16 06:05 09/03/16 06:05 INR, PTT INR 1.02 (0.82-1.09) 08/31/16 09:45 Assessment/Plan Bilateral pneumonia Sepsis secondary to pneumonia Leukocytosis Continue zithromax/ ceftriaxone Bronchodilators/ steroids
--- NOTE | 2016-09-04 17:32 | PN ---
Progress Note, Physician History of Present Illness: seen and examined today in [facility]. placed on bipap then ventimask overnight for sob. - Current Medication List Current Medications: Active Medications Albuterol Sulfate (Ventolin 0.083% Nebulizer Soln -) 1 amp NEB Q4H PRN PRN Reason: SHORT OF BREATH/WHEEZING Albuterol/Ipratropium (Duoneb -) 1 amp NEB QIDR [facility] Last Admin: 09/04/16 10:40 Dose: 1 amp Aspirin (Asa -) 81 mg PO DAILY [facility] Last Admin: 09/04/16 09:26 Dose: 81 mg Ceftriaxone Sodium (Rocephin 1gm Ivpb (Pre-Docked)) 1 gm IVPB DAILY [facility] Last Admin: 09/04/16 09:27 Dose: 1 gm Guaifenesin (Robitussin -) 10 ml PO Q6H PRN PRN Reason: COUGH Last Admin: 09/04/16 01:01 Dose: 10 ml Azithromycin 250 mg/ Dextrose 250 mls @ 250 mls/hr IVPB DAILY [facility] Last Admin: 09/04/16 09:25 Dose: 250 mls/hr Methylprednisolone Sodium Succinate (Solu-Medrol -) 40 mg IVPB BID [facility] Nifedipine (Procardia Xl -) 60 mg PO DAILY [facility] Last Admin: 09/04/16 09:25 Dose: 60 mg - Objective Vital Signs: Vital Signs Temperature 98.1 F 09/04/16 14:20 Pulse Rate 87 09/04/16 14:20 Respiratory Rate 22 09/04/16 14:20 Blood Pressure 116/65 09/04/16 14:20 O2 Sat by Pulse Oximetry (%) 93 L 09/04/16 10:25 Constitutional: Yes: Well Nourished, No Distress, Calm Eyes: Yes: WNL, Conjunctiva Clear, EOM Intact, PERRL HENT: Yes: WNL, Atraumatic, Normocephalic Neck: Yes: WNL, Supple, Trachea Midline Cardiovascular: Yes: Regular Rate and Rhythm, S1, S2. No: Bradycardia, Tachycardia, Pulse Irregular, Bruit, JVD, Gallop, Murmur, Rub, S3, S4, Varicosities Respiratory: Yes: Regular, On Venti-Mask, Rhonchi, Wheezes. No: Rales Gastrointestinal: Yes: WNL, Normal Bowel Sounds, Soft. No: Distention, Tenderness Musculoskeletal: Yes: WNL Extremities: Yes: WNL Edema: No Peripheral Pulses WNL: Yes Peripheral Pulses: Left Doralis Pedis: 2+, Right Dorsalis Pedis: 2+ Integumentary: Yes: WNL Neurological: Yes: Alert, Oriented Psychiatric: Yes: Alert, Oriented Labs: CBC, BMP 09/03/16 06:05 09/03/16 06:05 INR, PTT INR 1.02 (0.82-1.09) 08/31/16 09:45 - ....Imaging Chest X-ray: Report Reviewed, Image Reviewed EKG: Report Reviewed, Image Reviewed Other: Report Reviewed, Image Reviewed (tele-nsr, apcs, pvcs) Assessment/Plan 86 year old woman with a history of HTN, CAD with reported 5 stents in the past (unknown details), anemia, admitted with sob, productive cough, severe hypoxia. 1. RML PNA on CT 2. Profound hypoxia 3. Initial concern for pulmonary embolism, not seen on CTA chest 4. HTN with CKD 5. Aortic stenosis REC: Echo showed normal LV systolic function, mod to sev , mild mr, mild tr, mild AR, trivial pericardial effusion, normal RV size and function CTA done-reportedly no evidence of PE, full AC stopped, start DVT ppx as appropriate Pt is euvolemic, does not require diuresis HTN variable, low normal on admission, anti-HTN meds held for possible sepsis, BP trended up, Nifedipine XL 60mg started (takes 90mg at home) Hold losartan for now for elevated creatinine on admission If BP again above goal can uptitrate nifedipine to home dose of 90mg and can resume home Metoprolol Outpatient follow for aortic stenosis Ok to dc telemetry, no sig arrhythmias, only very short few beats psvt pulmonary and ID following No additional planned inpatient cardiac work up
--- NOTE | 2016-09-04 19:29 | PN ---
Progress Note, Physician History of Present Illness: Pt w/hypoxia - Current Medication List Current Medications: Active Medications Albuterol Sulfate (Ventolin 0.083% Nebulizer Soln -) 1 amp NEB Q4H PRN PRN Reason: SHORT OF BREATH/WHEEZING Albuterol/Ipratropium (Duoneb -) [address] [facility] Last Admin: 09/04/16 16:45 Dose: 1 amp Aspirin (Asa -) [address] [facility] Last Admin: 09/04/16 09:26 Dose: 81 mg Ceftriaxone Sodium (Rocephin 1gm Ivpb (Pre-Docked)) [address] [facility] Last Admin: 09/04/16 09:27 Dose: 1 gm Guaifenesin (Robitussin -) 10 ml PO Q6H PRN PRN Reason: COUGH Last Admin: 09/04/16 01:01 Dose: 10 ml Azithromycin 250 mg/ Dextrose 250 mls @ 250 mls/hr IVPB DAILY [facility] Last Admin: 09/04/16 09:25 Dose: 250 mls/hr Methylprednisolone Sodium Succinate (Solu-Medrol -) [address] [facility] Nifedipine (Procardia Xl -) [address] [facility] Last Admin: 09/04/16 09:25 Dose: 60 mg - Objective Vital Signs: Vital Signs Temperature 98.0 F 09/04/16 18:00 Pulse Rate 89 09/04/16 18:00 Respiratory Rate 18 09/04/16 18:00 Blood Pressure 129/71 09/04/16 18:00 O2 Sat by Pulse Oximetry (%) 93 L 09/04/16 10:25 Constitutional: Yes: Well Nourished Neck: Yes: Supple Cardiovascular: Yes: WNL, Regular Rate and Rhythm Respiratory: Yes: Rhonchi Gastrointestinal: Yes: WNL, Normal Bowel Sounds, Soft Labs: CBC, BMP 09/03/16 06:05 09/03/16 06:05 INR, PTT INR 1.02 (0.82-1.09) 08/31/16 09:45 Problem List - Problems (1) Acute hypoxemic respiratory failure Assessment/Plan: Pt w/ multilobar pneumonia Cont BIPAP Pt encouraged to take deep breathes Cont IV ceftriaxone/zithro/steroids Cont nebulizers Code(s): J96.01 - ACUTE RESPIRATORY FAILURE WITH HYPOXIA (2) HTN (hypertension) Assessment/Plan: Cont procardia Cont to monitor Code(s): I10 - ESSENTIAL (PRIMARY) HYPERTENSION
[2016-09-05] MEDS: ALBUTEROL SO4 2.5/IPRATROPIUM 0.5 INH SOL 3 ML VIAL.NEB. NEB SCH ×3 (06:30→17:26)
[2016-09-05] MEDS ORDERED: PT OWN MED DRAWER 7, Y5N ONE (09:39)
[2016-09-05] MEDS: AZITHROMYCIN IVPB 250 MG in DEXTROSE 5%-WATER - 250 ML IVPB SCH (09:55)
[2016-09-05] MEDS: NIFEdipine E.R 60 MG TABLET (UD) PO SCH (09:56)
[2016-09-05] MEDS: methylPREDNISolone NA SUCC 40 MG/1 ML VIAL IVPB SCH ×2 (09:56→21:52)
[2016-09-05] MEDS: cefTRIAXone 1 GM/50 ML BAG (PRE-DOCKED) IVPB SCH (09:56)
[2016-09-05] MEDS: ASPIRIN 81 MG CHEWABLE TABLETS PO SCH (09:56)
--- NOTE | 2016-09-05 09:57 | PN ---
Progress Note, Physician History of Present Illness: seen and examined today in [facility]. still coughing still congested. no overnight events. no new complaints. - Current Medication List Current Medications: Active Medications Albuterol Sulfate (Ventolin 0.083% Nebulizer Soln -) 1 amp NEB Q4H PRN PRN Reason: SHORT OF BREATH/WHEEZING Albuterol/Ipratropium (Duoneb -) 1 amp NEB QIDR [facility] Last Admin: 09/05/16 06:30 Dose: 1 amp Aspirin (Asa -) 81 mg PO DAILY [facility] Last Admin: 09/04/16 09:26 Dose: 81 mg Ceftriaxone Sodium (Rocephin 1gm Ivpb (Pre-Docked)) 1 gm IVPB DAILY [facility] Last Admin: 09/04/16 09:27 Dose: 1 gm Guaifenesin (Robitussin -) 10 ml PO Q6H PRN PRN Reason: COUGH Last Admin: 09/04/16 21:09 Dose: 10 ml Azithromycin 250 mg/ Dextrose 250 mls @ 250 mls/hr IVPB DAILY [facility] Last Admin: 09/04/16 09:25 Dose: 250 mls/hr Methylprednisolone Sodium Succinate (Solu-Medrol -) 40 mg IVPB BID [facility] Last Admin: 09/04/16 21:09 Dose: 40 mg Nifedipine (Procardia Xl -) 60 mg PO DAILY [facility] Last Admin: 09/04/16 09:25 Dose: 60 mg - Objective Vital Signs: Vital Signs Temperature 97.8 F 09/05/16 06:00 Pulse Rate 79 09/05/16 06:00 Respiratory Rate 18 09/05/16 06:00 Blood Pressure 154/86 09/05/16 06:00 O2 Sat by Pulse Oximetry (%) 96 09/04/16 21:00 Constitutional: Yes: Well Nourished, No Distress, Calm Eyes: Yes: WNL, Conjunctiva Clear, EOM Intact, PERRL HENT: Yes: WNL, Atraumatic, Normocephalic Neck: Yes: WNL, Supple, Trachea Midline Cardiovascular: Yes: WNL, Regular Rate and Rhythm, Murmur, S1, S2. No: Bradycardia, Tachycardia, Pulse Irregular, Bruit, JVD, Gallop, Rub, S3, S4, Varicosities Respiratory: Yes: Regular, Cough, Rhonchi. No: Rales, Wheezes Gastrointestinal: Yes: WNL, Normal Bowel Sounds, Soft. No: Distention, Tenderness Musculoskeletal: Yes: WNL Extremities: Yes: WNL Edema: No Peripheral Pulses WNL: Yes Peripheral Pulses: Left Doralis Pedis: 2+, Right Dorsalis Pedis: 2+ Integumentary: Yes: WNL Neurological: Yes: Alert, Oriented, Cran Nerves II-XII Intact Psychiatric: Yes: Alert, Oriented Labs: CBC, BMP 09/03/16 06:05 09/03/16 06:05 INR, PTT INR 1.02 (0.82-1.09) 08/31/16 09:45 - ....Imaging Chest X-ray: Report Reviewed, Image Reviewed EKG: Report Reviewed, Image Reviewed Other: Report Reviewed, Image Reviewed (tele-nsr, sinus tach, apcs) Assessment/Plan 86 year old woman with a history of HTN, CAD with reported 5 stents in the past (unknown details), anemia, admitted with sob, productive cough, severe hypoxia. 1. RML PNA on CT 2. Profound hypoxia 3. Initial concern for pulmonary embolism, not seen on CTA chest 4. HTN with CKD 5. Aortic stenosis REC: Echo showed normal LV systolic function, mod to sev , mild mr, mild tr, mild AR, trivial pericardial effusion, normal RV size and function CTA done-reportedly no evidence of PE, full AC stopped, start DVT ppx as appropriate Pt is euvolemic, does not require diuresis HTN variable, overall adequately controlled, resume home meds as needed Outpatient follow for aortic stenosis Ok to dc telemetry, no sig arrhythmias, only very short few beats psvt pulmonary and ID following No additional planned inpatient cardiac work up
--- NOTE | 2016-09-05 11:26 | PN ---
Progress Note, Physician History of Present Illness: pulmonary alert,feeling better,less dyspneic,still congested,+ cough. - Current Medication List Current Medications: Active Medications Albuterol Sulfate (Ventolin 0.083% Nebulizer Soln -) 1 amp NEB Q4H PRN PRN Reason: SHORT OF BREATH/WHEEZING Albuterol/Ipratropium (Duoneb -) 1 amp NEB QIDR [facility] Last Admin: 09/05/16 06:30 Dose: 1 amp Aspirin (Asa -) 81 mg PO DAILY [facility] Last Admin: 09/05/16 09:56 Dose: 81 mg Ceftriaxone Sodium (Rocephin 1gm Ivpb (Pre-Docked)) 1 gm IVPB DAILY [facility] Last Admin: 09/05/16 09:56 Dose: 1 gm Guaifenesin (Robitussin -) 10 ml PO Q6H PRN PRN Reason: COUGH Last Admin: 09/04/16 21:09 Dose: 10 ml Azithromycin 250 mg/ Dextrose 250 mls @ 250 mls/hr IVPB DAILY [facility] Last Admin: 09/05/16 09:55 Dose: 250 mls/hr Methylprednisolone Sodium Succinate (Solu-Medrol -) 40 mg IVPB BID [facility] Last Admin: 09/05/16 09:56 Dose: 40 mg Nifedipine (Procardia Xl -) 60 mg PO DAILY [facility] Last Admin: 09/05/16 09:56 Dose: 60 mg - Objective Vital Signs: Vital Signs Temperature 97.8 F 09/05/16 06:00 Pulse Rate 79 09/05/16 06:00 Respiratory Rate 18 09/05/16 06:00 Blood Pressure 154/86 09/05/16 06:00 O2 Sat by Pulse Oximetry (%) 96 09/04/16 21:00 Constitutional: Yes: Well Nourished, Calm Eyes: Yes: WNL HENT: Yes: WNL Neck: Yes: WNL Cardiovascular: Yes: Regular Rate and Rhythm, S1, S2 Respiratory: Yes: Rales (bilateral rales and rhonchi), Rhonchi Gastrointestinal: Yes: Normal Bowel Sounds, Soft Extremities: Yes: WNL Edema: No Labs: CBC, BMP 09/03/16 06:05 09/03/16 06:05 INR, PTT INR 1.02 (0.82-1.09) 08/31/16 09:45 Problem List - Problems (1) Cough Code(s): R05 - COUGH (2) Hypoxia Code(s): R09.02 - HYPOXEMIA (3) Acute kidney injury Code(s): N17.9 - ACUTE KIDNEY FAILURE, UNSPECIFIED (4) Acute hypoxemic respiratory failure Code(s): J96.01 - ACUTE RESPIRATORY FAILURE WITH HYPOXIA (5) Pneumonia Code(s): J18.9 - PNEUMONIA, UNSPECIFIED ORGANISM (6) Lactate blood increased Code(s): E87.2 - ACIDOSIS Assessment/Plan IMP ACUTE HYPOXEMIC RESPIRATORY FAILURE SLOWLY IMPROVING PNEUMONIA HTN ASHD S/P STENT X5 ACUTE KIDNEY INJURY ELEVATED LACTATE LEVEL NORMAL PLAN IV ANTIBIOTICS INHALED BRONCHODILATORS STEROID TAPER SUPPLEMENTAL O2 F/U CHEST X-RAY DR RICHARDSON
[2016-09-05] MEDS: guaiFENesin/D-METHORPHAN HB 1 EACH TAB.ER.12H PO SCH ×2 (13:42→21:52)
--- NOTE | 2016-09-05 21:08 | PN ---
Progress Note, Physician History of Present Illness: Pt w/ cough - Current Medication List Current Medications: Active Medications Aspirin (Asa -) 81 mg PO DAILY [facility] Last Admin: 09/05/16 09:56 Dose: 81 mg Ceftriaxone Sodium (Rocephin 1gm Ivpb (Pre-Docked)) 1 gm IVPB DAILY [facility] Last Admin: 09/05/16 09:56 Dose: 1 gm Guaifenesin (Mucinex Dm -) 2 tablet PO BID [facility] Last Admin: 09/05/16 13:42 Dose: 2 tablet Azithromycin 250 mg/ Dextrose 250 mls @ 250 mls/hr IVPB DAILY [facility] Last Admin: 09/05/16 09:55 Dose: 250 mls/hr Methylprednisolone Sodium Succinate (Solu-Medrol -) 40 mg IVPB BID [facility] Last Admin: 09/05/16 09:56 Dose: 40 mg Nifedipine (Procardia Xl -) 60 mg PO DAILY [facility] Last Admin: 09/05/16 09:56 Dose: 60 mg - Objective Vital Signs: Vital Signs Temperature 97.7 F 09/05/16 16:20 Pulse Rate 84 09/05/16 16:20 Respiratory Rate 18 09/05/16 16:20 Blood Pressure 147/61 09/05/16 16:20 O2 Sat by Pulse Oximetry (%) 92 L 09/05/16 09:00 Neck: Yes: Supple Cardiovascular: Yes: WNL, Regular Rate and Rhythm Respiratory: Yes: Rhonchi Gastrointestinal: Yes: WNL, Normal Bowel Sounds, Soft Labs: CBC, BMP 09/03/16 06:05 09/03/16 06:05 INR, PTT INR 1.02 (0.82-1.09) 08/31/16 09:45 Problem List - Problems (1) Acute hypoxemic respiratory failure Assessment/Plan: Pt w/ multilobar pneumonia Cont IV ceftriaxone/zithro/steroids Cont nebulizers Code(s): J96.01 - ACUTE RESPIRATORY FAILURE WITH HYPOXIA (2) HTN (hypertension) Assessment/Plan: Cont procardia Cont to monitor Code(s): I10 - ESSENTIAL (PRIMARY) HYPERTENSION
[2016-09-06 08:02] LABS: MEAN CELL VOLUME 67.8 fl (80-96); MEAN PLT VOLUME 8.3 fl (7.5-11.1); PLATELET COUNT 206 K/MM3 (134-434); RDW 16.4 % (11.6-15.6)
[2016-09-06 08:22] LABS: ALBUMIN 2.6 g/dl (3.4-5.0); BILIRUBIN,TOTAL 0.3 mg/dL (0.2-1.0); CALCIUM 7.7 mg/dL (8.5-10.1); TOT PROT 5.7 g/dl (6.4-8.2)
[2016-09-06] MEDS: cefTRIAXone 1 GM/50 ML BAG (PRE-DOCKED) IVPB SCH (09:55)
[2016-09-06] MEDS: NIFEdipine E.R 60 MG TABLET (UD) PO SCH (09:55)
[2016-09-06] MEDS: methylPREDNISolone NA SUCC 40 MG/1 ML VIAL IVPB SCH ×2 (09:55→21:09)
[2016-09-06] MEDS: ASPIRIN 81 MG CHEWABLE TABLETS PO SCH (09:55)
[2016-09-06] MEDS: guaiFENesin/D-METHORPHAN HB 1 EACH TAB.ER.12H PO SCH ×2 (10:33→21:09)
[2016-09-06] MEDS: AZITHROMYCIN IVPB 250 MG in DEXTROSE 5%-WATER - 250 ML IVPB SCH (10:33)
[2016-09-06 11:55] LABS: METAMYELOCYTE 4 % (0-2)
--- NOTE | 2016-09-06 11:58 | PN ---
Progress Note, Physician History of Present Illness: Seated in bed Still with cough Afebrile WBC improved Legionella, pneumococcal ag (-) - Current Medication List Current Medications: Active Medications Aspirin (Asa -) 81 mg PO DAILY [facility] Last Admin: 09/06/16 09:55 Dose: 81 mg Ceftriaxone Sodium (Rocephin 1gm Ivpb (Pre-Docked)) 1 gm IVPB DAILY [facility] Last Admin: 09/06/16 09:55 Dose: 1 gm Guaifenesin (Mucinex Dm -) 2 tablet PO BID [facility] Last Admin: 09/06/16 10:33 Dose: 2 tablet Azithromycin 250 mg/ Dextrose 250 mls @ 250 mls/hr IVPB DAILY [facility] Last Admin: 09/06/16 10:33 Dose: 250 mls/hr Methylprednisolone Sodium Succinate (Solu-Medrol -) 40 mg IVPB BID [facility] Last Admin: 09/06/16 09:55 Dose: 40 mg Nifedipine (Procardia Xl -) 60 mg PO DAILY [facility] Last Admin: 09/06/16 09:55 Dose: 60 mg - Objective Vital Signs: Vital Signs Temperature 97.8 F 09/06/16 10:00 Pulse Rate 74 09/06/16 10:00 Respiratory Rate 18 09/06/16 10:00 Blood Pressure 145/58 09/06/16 10:00 O2 Sat by Pulse Oximetry (%) 96 09/06/16 10:00 Constitutional: Yes: No Distress Eyes: Yes: Conjunctiva Clear Cardiovascular: Yes: Regular Rate and Rhythm, S1, S2 Respiratory: Yes: Other (+ crepitations bilaterally) Gastrointestinal: Yes: Normal Bowel Sounds, Soft. No: Tenderness Edema: No Labs: CBC, BMP 09/06/16 07:00 09/06/16 07:00 INR, PTT INR 1.02 (0.82-1.09) 08/31/16 09:45 Assessment/Plan Bilateral pneumonia improving Sepsis secondary to pneumonia Leukocytosis- improved Continue zithromax/ ceftriaxone Bronchodilators/ steroids
--- NOTE | 2016-09-06 15:43 | PN ---
Progress Note (short form) - Note Progress Note: Awake and alert. Still with cough. No CP. Intake & Output 09/03/16 09/04/16 09/05/16 09/06/16 23:59 23:59 23:59 23:59 Intake Total 300 130 0 350 Balance 300 130 0 350 Last Vital Signs Temp Pulse Resp BP Pulse Ox 98.1 F 78 18 105/60 96 09/06/16 14:00 09/06/16 14:00 09/06/16 14:00 09/06/16 14:00 09/06/16 10:00 Active Medications Aspirin (Asa -) 81 mg PO DAILY [facility] Last Admin: 09/06/16 09:55 Dose: 81 mg Ceftriaxone Sodium (Rocephin 1gm Ivpb (Pre-Docked)) 1 gm IVPB DAILY [facility] Last Admin: 09/06/16 09:55 Dose: 1 gm Guaifenesin (Mucinex Dm -) 2 tablet PO BID [facility] Last Admin: 09/06/16 10:33 Dose: 2 tablet Azithromycin 250 mg/ Dextrose 250 mls @ 250 mls/hr IVPB DAILY [facility] Last Admin: 09/06/16 10:33 Dose: 250 mls/hr Methylprednisolone Sodium Succinate (Solu-Medrol -) 40 mg IVPB BID [facility] Last Admin: 09/06/16 09:55 Dose: 40 mg Nifedipine (Procardia Xl -) 60 mg PO DAILY [facility] Last Admin: 09/06/16 09:55 Dose: 60 mg Constitutional: Yes: NAD Eyes: Yes: WNL HENT: Yes: WNL Neck: Yes: WNL Cardiovascular: Yes: Regular Rate and Rhythm, S1, S2 Respiratory: Yes: Bilateral Rhonchi Gastrointestinal: Yes: Normal Bowel Sounds, Soft Extremities: Yes: WNL Edema: No Labs: Laboratory Results - last 24 hr 09/06/16 09/06/16 07:00 07:00 WBC 11.0 H RBC 5.30 H Hgb 11.1 Hct 35.9 MCV 67.8 L MCHC 31.0 L RDW 16.4 H Plt Count 206 MPV 8.3 Neutrophils % 75.0 Lymphocytes % 10.0 D Monocytes % 5.0 Metamyelocytes 4 H Myelocytes 5 H Differential Comment Manual diff done Reactive Lymphocytes 1 Sodium 143 Potassium 4.5 Chloride 105 Carbon Dioxide 28 Anion Gap 10 BUN 26 H Creatinine 1.0 Creat Clearance w eGFR 52.57 Random Glucose 179 H D Calcium 7.7 L Total Bilirubin 0.3 D AST 32 D ALT 31 D Alkaline Phosphatase 78 Total Protein 5.7 L Albumin 2.6 L Problem List - Problems (1) Cough Code(s): R05 - COUGH (2) Hypoxia Code(s): R09.02 - HYPOXEMIA (3) Acute kidney injury Code(s): N17.9 - ACUTE KIDNEY FAILURE, UNSPECIFIED (4) Acute hypoxemic respiratory failure Code(s): J96.01 - ACUTE RESPIRATORY FAILURE WITH HYPOXIA (5) Pneumonia Code(s): J18.9 - PNEUMONIA, UNSPECIFIED ORGANISM (6) Lactate blood increased Code(s): E87.2 - ACIDOSIS Assessment/Plan IMP ACUTE HYPOXEMIC RESPIRATORY FAILURE SLOWLY IMPROVING PNEUMONIA HTN ASHD S/P STENT X5 ACUTE KIDNEY INJURY ELEVATED LACTATE LEVEL NORMAL PLAN IV ANTIBIOTICS PER ID INHALED BRONCHODILATORS CAN CHANGE TO PREDNISONE IN THE AM IF STABLE/IMPROVED SUPPLEMENTAL O2 NEEDED DR MULLINS
--- NOTE | 2016-09-06 17:40 | PN ---
Progress Note, Physician History of Present Illness: seen and examined today in [facility]. feeling better today. no overnight events. no new complaints. - Current Medication List Current Medications: Active Medications Aspirin (Asa -) 81 mg PO DAILY [facility] Last Admin: 09/06/16 09:55 Dose: 81 mg Ceftriaxone Sodium (Rocephin 1gm Ivpb (Pre-Docked)) 1 gm IVPB DAILY [facility] Last Admin: 09/06/16 09:55 Dose: 1 gm Guaifenesin (Mucinex Dm -) 2 tablet PO BID [facility] Last Admin: 09/06/16 10:33 Dose: 2 tablet Azithromycin 250 mg/ Dextrose 250 mls @ 250 mls/hr IVPB DAILY [facility] Last Admin: 09/06/16 10:33 Dose: 250 mls/hr Methylprednisolone Sodium Succinate (Solu-Medrol -) 40 mg IVPB BID [facility] Last Admin: 09/06/16 09:55 Dose: 40 mg Nifedipine (Procardia Xl -) 60 mg PO DAILY [facility] Last Admin: 09/06/16 09:55 Dose: 60 mg - Objective Vital Signs: Vital Signs Temperature 98.1 F 09/06/16 14:00 Pulse Rate 78 09/06/16 14:00 Respiratory Rate 18 09/06/16 14:00 Blood Pressure 105/60 09/06/16 14:00 O2 Sat by Pulse Oximetry (%) 96 09/06/16 10:00 Constitutional: Yes: Well Nourished, No Distress, Calm Eyes: Yes: WNL, Conjunctiva Clear, EOM Intact, PERRL HENT: Yes: WNL, Atraumatic, Normocephalic Neck: Yes: WNL, Supple, Trachea Midline Cardiovascular: Yes: WNL, Regular Rate and Rhythm, Murmur, S1, S2. No: Bradycardia, Tachycardia, Pulse Irregular, Bruit, JVD, Gallop, Rub, S3, S4, Varicosities Respiratory: Yes: Regular, Rhonchi. No: Rales, SOB, Wheezes Gastrointestinal: Yes: WNL, Normal Bowel Sounds, Soft. No: Distention, Tenderness Musculoskeletal: Yes: WNL Extremities: Yes: WNL Edema: No Peripheral Pulses WNL: Yes Peripheral Pulses: Left Doralis Pedis: 2+, Right Dorsalis Pedis: 2+ Integumentary: Yes: WNL Neurological: Yes: WNL, Alert, Oriented, Cran Nerves II-XII Intact ...Motor Strength: WNL Psychiatric: Yes: WNL, Alert, Oriented Labs: CBC, BMP 09/06/16 07:00 09/06/16 07:00 INR, PTT INR 1.02 (0.82-1.09) 08/31/16 09:45 - ....Imaging Chest X-ray: Report Reviewed, Image Reviewed EKG: Report Reviewed, Image Reviewed Other: Report Reviewed, Image Reviewed (tele-nsr, apcs, pvcs) Assessment/Plan 86 year old woman with a history of HTN, CAD with reported 5 stents in the past (unknown details), anemia, admitted with sob, productive cough, severe hypoxia. 1. RML PNA on CT 2. Profound hypoxia 3. Initial concern for pulmonary embolism, not seen on CTA chest 4. HTN with CKD 5. Aortic stenosis REC: Echo showed normal LV systolic function, mod to sev , mild mr, mild tr, mild AR, trivial pericardial effusion, normal RV size and function CTA done-reportedly no evidence of PE, full AC stopped, start DVT ppx as appropriate Pt is euvolemic, does not require diuresis HTN variable, overall adequately controlled, cont current medical regimen for now then resume other home meds as needed Outpatient follow for aortic stenosis Ok to dc telemetry, no sig arrhythmias, only very short few beats psvt pulmonary and ID following No additional planned inpatient cardiac work up
[2016-09-06] MEDS ORDERED: PT OWN MED DRAWER 7, Y5N ONE (21:31)
--- NOTE | 2016-09-06 23:27 | PN ---
Progress Note, Physician History of Present Illness: No new change - Current Medication List Current Medications: Active Medications Albuterol Sulfate (Ventolin 0.083% Nebulizer Soln -) 1 amp NEB Q4H PRN PRN Reason: SHORT OF BREATH/WHEEZING Aspirin (Asa -) 81 mg PO DAILY [facility] Last Admin: 09/06/16 09:55 Dose: 81 mg Ceftriaxone Sodium (Rocephin 1gm Ivpb (Pre-Docked)) 1 gm IVPB DAILY [facility] Last Admin: 09/06/16 09:55 Dose: 1 gm Guaifenesin (Mucinex Dm -) 2 tablet PO BID [facility] Last Admin: 09/06/16 21:09 Dose: 2 tablet Azithromycin 250 mg/ Dextrose 250 mls @ 250 mls/hr IVPB DAILY [facility] Last Admin: 09/06/16 10:33 Dose: 250 mls/hr Methylprednisolone Sodium Succinate (Solu-Medrol -) 40 mg IVPB BID [facility] Last Admin: 09/06/16 21:09 Dose: 40 mg Nifedipine (Procardia Xl -) 60 mg PO DAILY [facility] Last Admin: 09/06/16 09:55 Dose: 60 mg - Objective Vital Signs: Vital Signs Temperature 98.0 F 09/06/16 22:00 Pulse Rate 73 09/06/16 22:00 Respiratory Rate 20 09/06/16 22:00 Blood Pressure 143/93 09/06/16 22:00 O2 Sat by Pulse Oximetry (%) 90 L 09/06/16 20:27 Cardiovascular: Yes: WNL, Regular Rate and Rhythm Respiratory: Yes: Rhonchi Gastrointestinal: Yes: WNL, Normal Bowel Sounds, Soft Labs: CBC, BMP 09/06/16 07:00 09/06/16 07:00 INR, PTT INR 1.02 (0.82-1.09) 08/31/16 09:45 Problem List - Problems (1) Acute hypoxemic respiratory failure Assessment/Plan: Pt w/ multilobar pneumonia Cont IV ceftriaxone/zithro/steroids Cont nebulizers Code(s): J96.01 - ACUTE RESPIRATORY FAILURE WITH HYPOXIA (2) HTN (hypertension) Assessment/Plan: Cont procardia Cont to monitor Code(s): I10 - ESSENTIAL (PRIMARY) HYPERTENSION
[2016-09-06] MEDS: ALBUTEROL SO4 0.083% IH SOL 2.5 MG/3 ML VIAL.NEB. NEB PRN (23:36)
[2016-09-07] MEDS ORDERED: PT OWN MED DRAWER 7, Y5N ONE ×2 (08:52→22:48)
[2016-09-07] MEDS: NIFEdipine E.R 60 MG TABLET (UD) PO SCH (09:00)
[2016-09-07] MEDS: methylPREDNISolone NA SUCC 40 MG/1 ML VIAL IVPB SCH (09:00)
[2016-09-07] MEDS: guaiFENesin/D-METHORPHAN HB 1 EACH TAB.ER.12H PO SCH ×2 (09:00→23:27)
[2016-09-07] MEDS: cefTRIAXone 1 GM/50 ML BAG (PRE-DOCKED) IVPB SCH (09:00)
[2016-09-07] MEDS: ASPIRIN 81 MG CHEWABLE TABLETS PO SCH (09:00)
[2016-09-07] MEDS: AZITHROMYCIN IVPB 250 MG in DEXTROSE 5%-WATER - 250 ML IVPB SCH (09:56)
--- NOTE | 2016-09-07 12:24 | PN ---
Progress Note, Physician History of Present Illness: pulmonary alert,oob-chair,+cough,less congested ,O2 sat 95% - Current Medication List Current Medications: Active Medications Albuterol Sulfate (Ventolin 0.083% Nebulizer Soln -) 1 amp NEB Q4H PRN PRN Reason: SHORT OF BREATH/WHEEZING Last Admin: 09/06/16 23:36 Dose: 1 amp Aspirin (Asa -) 81 mg PO DAILY [facility] Last Admin: 09/07/16 09:00 Dose: 81 mg Ceftriaxone Sodium (Rocephin 1gm Ivpb (Pre-Docked)) 1 gm IVPB DAILY [facility] Last Admin: 09/07/16 09:00 Dose: 1 gm Guaifenesin (Mucinex Dm -) 2 tablet PO BID [facility] Last Admin: 09/07/16 09:00 Dose: 2 tablet Azithromycin 250 mg/ Dextrose 250 mls @ 250 mls/hr IVPB DAILY [facility] Last Admin: 09/07/16 09:56 Dose: 250 mls/hr Methylprednisolone Sodium Succinate (Solu-Medrol -) 40 mg IVPB BID [facility] Last Admin: 09/07/16 09:00 Dose: 40 mg Nifedipine (Procardia Xl -) 60 mg PO DAILY [facility] Last Admin: 09/07/16 09:00 Dose: 60 mg - Objective Vital Signs: Vital Signs Temperature 97.9 F 09/07/16 10:00 Pulse Rate 72 09/07/16 10:00 Respiratory Rate 20 09/07/16 10:00 Blood Pressure 155/87 09/07/16 10:00 O2 Sat by Pulse Oximetry (%) 95 09/07/16 09:00 Constitutional: Yes: Well Nourished, Calm Eyes: Yes: WNL HENT: Yes: WNL Neck: Yes: WNL Cardiovascular: Yes: Regular Rate and Rhythm, S1, S2 Respiratory: Yes: Rhonchi (CASEY RHONCHI) Gastrointestinal: Yes: Normal Bowel Sounds, Soft Extremities: Yes: WNL Edema: No Labs: CBC, BMP 09/06/16 07:00 Problem List - Problems (1) Cough Code(s): R05 - COUGH (2) Hypoxia Code(s): R09.02 - HYPOXEMIA (3) Acute kidney injury Code(s): N17.9 - ACUTE KIDNEY FAILURE, UNSPECIFIED (4) Acute hypoxemic respiratory failure Code(s): J96.01 - ACUTE RESPIRATORY FAILURE WITH HYPOXIA (5) Pneumonia Code(s): J18.9 - PNEUMONIA, UNSPECIFIED ORGANISM (6) Lactate blood increased Code(s): E87.2 - ACIDOSIS Assessment/Plan IMP ACUTE HYPOXEMIC RESPIRATORY FAILURE SLOWLY IMPROVING PNEUMONIA HTN ASHD S/P STENT X5 ACUTE KIDNEY INJURY ELEVATED LACTATE LEVEL NORMAL PLAN IV ANTIBIOTICS PER ID INHALED BRONCHODILATORS STEROID TAPER SUPPLEMENTAL O2 DR RICHARDSON
--- NOTE | 2016-09-07 12:37 | PN ---
Progress Note, Physician History of Present Illness: OOB in chair Still with cough Mildly dyspneic on nasal cannula O2 No c/o fever/ chills - Current Medication List Current Medications: Active Medications Albuterol Sulfate (Ventolin 0.083% Nebulizer Soln -) 1 amp NEB Q4H PRN PRN Reason: SHORT OF BREATH/WHEEZING Last Admin: 09/06/16 23:36 Dose: 1 amp Aspirin (Asa -) 81 mg PO DAILY [facility] Last Admin: 09/07/16 09:00 Dose: 81 mg Ceftriaxone Sodium (Rocephin 1gm Ivpb (Pre-Docked)) 1 gm IVPB DAILY [facility] Last Admin: 09/07/16 09:00 Dose: 1 gm Guaifenesin (Mucinex Dm -) 2 tablet PO BID [facility] Last Admin: 09/07/16 09:00 Dose: 2 tablet Azithromycin 250 mg/ Dextrose 250 mls @ 250 mls/hr IVPB DAILY [facility] Last Admin: 09/07/16 09:56 Dose: 250 mls/hr Methylprednisolone Sodium Succinate (Solu-Medrol -) 40 mg IVPB BID [facility] Stop: 09/07/16 22:01 Nifedipine (Procardia Xl -) 60 mg PO DAILY [facility] Last Admin: 09/07/16 09:00 Dose: 60 mg Prednisone (Deltasone -) 60 mg PO DAILY [facility] - Objective Vital Signs: Vital Signs Temperature 97.9 F 09/07/16 10:00 Pulse Rate 72 09/07/16 10:00 Respiratory Rate 20 09/07/16 10:00 Blood Pressure 155/87 09/07/16 10:00 O2 Sat by Pulse Oximetry (%) 95 09/07/16 09:00 Constitutional: Yes: No Distress Eyes: Yes: Conjunctiva Clear Cardiovascular: Yes: Regular Rate and Rhythm, S1, S2 Respiratory: Yes: Other (+ rales bilaterally) Gastrointestinal: Yes: Normal Bowel Sounds, Soft. No: Tenderness Edema: No Labs: CBC, BMP 09/06/16 07:00 09/06/16 07:00 INR, PTT INR 1.02 (0.82-1.09) 08/31/16 09:45 Assessment/Plan Bilateral pneumonia improving Sepsis secondary to pneumonia Leukocytosis- improved Continue zithromax/ ceftriaxone Bronchodilators/ steroids
--- NOTE | 2016-09-07 13:25 | PN ---
Progress Note, Physician History of Present Illness: seen and examined today in [facility]. feeling slightly better. still has congestion. no overnight events. no new complaints. - Current Medication List Current Medications: Active Medications Albuterol Sulfate (Ventolin 0.083% Nebulizer Soln -) 1 amp NEB Q4H PRN PRN Reason: SHORT OF BREATH/WHEEZING Last Admin: 09/06/16 23:36 Dose: 1 amp Aspirin (Asa -) 81 mg PO DAILY [facility] Last Admin: 09/07/16 09:00 Dose: 81 mg Ceftriaxone Sodium (Rocephin 1gm Ivpb (Pre-Docked)) 1 gm IVPB DAILY [facility] Last Admin: 09/07/16 09:00 Dose: 1 gm Guaifenesin (Mucinex Dm -) 2 tablet PO BID [facility] Last Admin: 09/07/16 09:00 Dose: 2 tablet Azithromycin 250 mg/ Dextrose 250 mls @ 250 mls/hr IVPB DAILY [facility] Last Admin: 09/07/16 09:56 Dose: 250 mls/hr Methylprednisolone Sodium Succinate (Solu-Medrol -) 40 mg IVPB BID [facility] Stop: 09/07/16 22:01 Nifedipine (Procardia Xl -) 60 mg PO DAILY [facility] Last Admin: 09/07/16 09:00 Dose: 60 mg Prednisone (Deltasone -) 60 mg PO DAILY [facility] - Objective Vital Signs: Vital Signs Temperature 97.9 F 09/07/16 10:00 Pulse Rate 72 09/07/16 10:00 Respiratory Rate 20 09/07/16 10:00 Blood Pressure 155/87 09/07/16 10:00 O2 Sat by Pulse Oximetry (%) 95 09/07/16 09:00 Constitutional: Yes: Well Nourished, No Distress, Calm Eyes: Yes: WNL, Conjunctiva Clear, EOM Intact, PERRL HENT: Yes: WNL, Atraumatic, Normocephalic Neck: Yes: WNL, Supple, Trachea Midline Cardiovascular: Yes: Regular Rate and Rhythm, Murmur, S1, S2. No: Bradycardia, Tachycardia, Pulse Irregular, Bruit, JVD, Gallop, Rub, S3, S4, Varicosities Respiratory: Yes: Regular, Rhonchi. No: Rales, Wheezes Gastrointestinal: Yes: WNL, Normal Bowel Sounds, Soft. No: Distention, Tenderness Musculoskeletal: Yes: WNL Extremities: Yes: WNL Edema: No Peripheral Pulses WNL: Yes Peripheral Pulses: Left Doralis Pedis: 2+, Right Dorsalis Pedis: 2+ Integumentary: Yes: WNL Neurological: Yes: WNL, Alert, Oriented, Cran Nerves II-XII Intact ...Motor Strength: WNL Psychiatric: Yes: WNL, Alert, Oriented Labs: CBC, BMP 09/06/16 07:00 09/06/16 07:00 INR, PTT INR 1.02 (0.82-1.09) 08/31/16 09:45 - ....Imaging Chest X-ray: Report Reviewed, Image Reviewed EKG: Report Reviewed, Image Reviewed Other: Report Reviewed, Image Reviewed (tele-nsr, sinus tach, pvcs) Assessment/Plan 86 year old woman with a history of HTN, CAD with reported 5 stents in the past (unknown details), anemia, admitted with sob, productive cough, severe hypoxia. 1. RML PNA on CT 2. Profound hypoxia 3. Initial concern for pulmonary embolism, not seen on CTA chest 4. HTN with CKD 5. Aortic stenosis REC: Echo showed normal LV systolic function, mod to sev , mild mr, mild tr, mild AR, trivial pericardial effusion, normal RV size and function CTA done-reportedly no evidence of PE, full AC stopped, start DVT ppx as appropriate Pt is euvolemic, does not require diuresis HTN variable, overall adequately controlled, cont current medical regimen for now then resume other home meds as needed Outpatient follow for aortic stenosis dc telemetry, no sig arrhythmias, only very short few beats psvt pulmonary and ID following No additional planned inpatient cardiac work up
--- NOTE | 2016-09-07 20:06 | PN ---
Progress Note, Physician History of Present Illness: No new complaint - Current Medication List Current Medications: Active Medications Albuterol Sulfate (Ventolin 0.083% Nebulizer Soln -) 1 amp NEB Q4H PRN PRN Reason: SHORT OF BREATH/WHEEZING Last Admin: 09/06/16 23:36 Dose: 1 amp Aspirin (Asa -) 81 mg PO DAILY [facility] Last Admin: 09/07/16 09:00 Dose: 81 mg Ceftriaxone Sodium (Rocephin 1gm Ivpb (Pre-Docked)) 1 gm IVPB DAILY [facility] Last Admin: 09/07/16 09:00 Dose: 1 gm Guaifenesin (Mucinex Dm -) 2 tablet PO BID [facility] Last Admin: 09/07/16 09:00 Dose: 2 tablet Azithromycin 250 mg/ Dextrose 250 mls @ 250 mls/hr IVPB DAILY [facility] Last Admin: 09/07/16 09:56 Dose: 250 mls/hr Methylprednisolone Sodium Succinate (Solu-Medrol -) 40 mg IVPB BID [facility] Stop: 09/07/16 22:01 Nifedipine (Procardia Xl -) 60 mg PO DAILY [facility] Last Admin: 09/07/16 09:00 Dose: 60 mg Prednisone (Deltasone -) 60 mg PO DAILY [facility] - Objective Vital Signs: Vital Signs Temperature 98.7 F 09/07/16 18:00 Pulse Rate 73 09/07/16 18:00 Respiratory Rate 18 09/07/16 18:00 Blood Pressure 120/72 09/07/16 18:00 O2 Sat by Pulse Oximetry (%) 99 09/07/16 13:33 Neck: Yes: Supple Cardiovascular: Yes: WNL, Regular Rate and Rhythm Respiratory: Yes: Rhonchi Gastrointestinal: Yes: WNL, Normal Bowel Sounds, Soft Labs: CBC, BMP 09/06/16 07:00 09/06/16 07:00 INR, PTT INR 1.02 (0.82-1.09) 08/31/16 09:45 Problem List - Problems (1) Acute hypoxemic respiratory failure Code(s): J96.01 - ACUTE RESPIRATORY FAILURE WITH HYPOXIA (2) HTN (hypertension) Code(s): I10 - ESSENTIAL (PRIMARY) HYPERTENSION
[2016-09-07] MEDS ORDERED: methylPREDNISolone NA SUCC 40 MG/1 ML VIAL IVPB SCH (22:00)
[2016-09-07] MEDS: ALBUTEROL SO4 0.083% IH SOL 2.5 MG/3 ML VIAL.NEB. NEB PRN (22:25)
[2016-09-07] MEDS ORDERED: methylPREDNISolone NA SUCC 125 MG/2 ML VIAL ONE (22:52)
[2016-09-08] MEDS ORDERED: PT OWN MED DRAWER 7, Y5N ONE ×2 (09:20→20:31)
[2016-09-08] MEDS: cefTRIAXone 1 GM/50 ML BAG (PRE-DOCKED) IVPB SCH (09:27)
[2016-09-08] MEDS: NIFEdipine E.R 60 MG TABLET (UD) PO SCH (09:27)
[2016-09-08] MEDS: predniSONE 20 MG TABLET (UD) PO SCH (09:27)
[2016-09-08] MEDS: ASPIRIN 81 MG CHEWABLE TABLETS PO SCH (09:27)
[2016-09-08] MEDS: AZITHROMYCIN IVPB 250 MG in DEXTROSE 5%-WATER - 250 ML IVPB SCH (09:57)
[2016-09-08] MEDS: guaiFENesin/D-METHORPHAN HB 1 EACH TAB.ER.12H PO SCH ×3 (09:57→22:45)
[2016-09-08] MEDS ORDERED: predniSONE 20 MG TABLET (UD) PO SCH (10:00)
--- NOTE | 2016-09-08 10:00 | PN ---
Progress Note, Physician History of Present Illness: Supine in bed No complaints Breathing non-labored + persistant cough Afebrile on steroids - Current Medication List Current Medications: Active Medications Albuterol Sulfate (Ventolin 0.083% Nebulizer Soln -) 1 amp NEB Q4H PRN PRN Reason: SHORT OF BREATH/WHEEZING Last Admin: 09/07/16 22:25 Dose: 1 amp Aspirin (Asa -) 81 mg PO DAILY [facility] Last Admin: 09/08/16 09:27 Dose: 81 mg Ceftriaxone Sodium (Rocephin 1gm Ivpb (Pre-Docked)) 1 gm IVPB DAILY [facility] Last Admin: 09/08/16 09:27 Dose: 1 gm Guaifenesin (Mucinex Dm -) 2 tablet PO BID [facility] Last Admin: 09/08/16 09:57 Dose: 2 tablet Azithromycin 250 mg/ Dextrose 250 mls @ 250 mls/hr IVPB DAILY [facility] Last Admin: 09/08/16 09:57 Dose: 250 mls/hr Nifedipine (Procardia Xl -) 60 mg PO DAILY [facility] Last Admin: 09/08/16 09:27 Dose: 60 mg Prednisone (Deltasone -) 60 mg PO DAILY [facility] Last Admin: 09/08/16 09:27 Dose: 60 mg - Objective Vital Signs: Vital Signs Temperature 97.5 F L 09/08/16 06:00 Pulse Rate 75 09/08/16 09:30 Respiratory Rate 20 09/08/16 09:30 Blood Pressure 159/77 09/08/16 09:30 O2 Sat by Pulse Oximetry (%) 94 L 09/07/16 20:44 Constitutional: Yes: No Distress Eyes: Yes: Conjunctiva Clear Cardiovascular: Yes: Regular Rate and Rhythm, S1, S2 Respiratory: Yes: Other (+crepitations bilaterally) Gastrointestinal: Yes: Normal Bowel Sounds, Soft. No: Tenderness Edema: No Labs: CBC, BMP 09/06/16 07:00 09/06/16 07:00 INR, PTT INR 1.02 (0.82-1.09) 08/31/16 09:45 Assessment/Plan Bilateral pneumonia improving Sepsis secondary to pneumonia Leukocytosis- improved Continue zithromax/ ceftriaxone Bronchodilators/ steroids
--- NOTE | 2016-09-08 11:04 | PN ---
Progress Note (short form) - Note Progress Note: PULMONARY Still with cough productive of yellow sputum. Some shortness of breath. No fevers or chills. Last Vital Signs Temp Pulse Resp BP Pulse Ox 97.5 F L 75 20 159/77 94 L 09/08/16 06:00 09/08/16 09:30 09/08/16 09:30 09/08/16 09:30 09/07/16 20:44 Gen: NAD in chair but with frequent cough Heart: RRR Lung: scattered rhonchi Abd: soft, nontender Ext: no edema CBC, BMP 09/06/16 07:00 09/06/16 07:00 Active Medications Albuterol Sulfate (Ventolin 0.083% Nebulizer Soln -) 1 amp NEB Q4H PRN PRN Reason: SHORT OF BREATH/WHEEZING Last Admin: 09/07/16 22:25 Dose: 1 amp Aspirin (Asa -) 81 mg PO DAILY [facility] Last Admin: 09/08/16 09:27 Dose: 81 mg Ceftriaxone Sodium (Rocephin 1gm Ivpb (Pre-Docked)) 1 gm IVPB DAILY [facility] Last Admin: 09/08/16 09:27 Dose: 1 gm Guaifenesin (Mucinex Dm -) 2 tablet PO BID [facility] Last Admin: 09/08/16 09:57 Dose: 2 tablet Azithromycin 250 mg/ Dextrose 250 mls @ 250 mls/hr IVPB DAILY [facility] Last Admin: 09/08/16 09:57 Dose: 250 mls/hr Nifedipine (Procardia Xl -) 60 mg PO DAILY [facility] Last Admin: 09/08/16 09:27 Dose: 60 mg Prednisone (Deltasone -) 60 mg PO DAILY [facility] Last Admin: 09/08/16 09:27 Dose: 60 mg A/P Pneumonia CAD Acute Kidney Injury improving Lactic Acidosis resolved - continue antibiotics - prednisone taper - will change inhaled bronchodilators to standing - cough suppressants - DVT prophylaxis
[2016-09-08] MEDS: ALBUTEROL SO4 2.5/IPRATROPIUM 0.5 INH SOL 3 ML VIAL.NEB. NEB SCH ×3 (11:58→23:06)
--- NOTE | 2016-09-08 22:15 | PN ---
Progress Note, Physician Chief Complaint: cough with phlegm History of Present Illness: The patient is an 86 year old female, with a significant past medical history of CAD s/p 5x stents, HTN, anemia, diverticulosis, who presents to the emergency department with a recent diagnosis of pneumonia as an outpatient by PMD. Daughter reports taking the patient to see yesterday where she was diagnosed with pneumonia (after x-ray) and discharged home with antibiotics. Patient arrives complaining of SOB and intermittent cough for the past week but worsened the past 2 days. She reports coughing up a white substance. Daughter reports her has had similar symptoms that have now been resolved. She denies having her flu shot this season. She also reports having a oral temp to 101 last night. She denies chest pain. She denies recent, chills, leb swelling, orthopnea, headache or dizziness. She denies recent nausea , vomit, diarrhea or constipation. Patient arrives with O2 sat is 73. Allergies: NKDA Past surgical history: bilateral THR, appendectomy Social history: Nonsmoker. Denies EtOH use and drug use. PCP: - Current Medication List Current Medications: Active Medications Albuterol Sulfate (Ventolin 0.083% Nebulizer Soln -) 1 amp NEB Q4H PRN PRN Reason: SHORT OF BREATH/WHEEZING Last Admin: 09/07/16 22:25 Dose: 1 amp Albuterol/Ipratropium (Duoneb -) 1 amp NEB QIDR [facility] Last Admin: 09/08/16 17:54 Dose: 1 amp Aspirin (Asa -) 81 mg PO DAILY [facility] Last Admin: 09/08/16 09:27 Dose: 81 mg Ceftriaxone Sodium (Rocephin 1gm Ivpb (Pre-Docked)) 1 gm IVPB DAILY [facility] Last Admin: 09/08/16 09:27 Dose: 1 gm Guaifenesin (Mucinex Dm -) 2 tablet PO BID [facility] Last Admin: 09/08/16 20:49 Dose: 2 tablet Azithromycin 250 mg/ Dextrose 250 mls @ 250 mls/hr IVPB DAILY [facility] Last Admin: 09/08/16 09:57 Dose: 250 mls/hr Nifedipine (Procardia Xl -) 60 mg PO DAILY [facility] Last Admin: 09/08/16 09:27 Dose: 60 mg Prednisone (Deltasone -) 60 mg PO DAILY [facility] Last Admin: 09/08/16 09:27 Dose: 60 mg - Objective Vital Signs: Vital Signs Temperature 98.3 F 09/08/16 18:42 Pulse Rate 85 09/08/16 18:42 Respiratory Rate 18 09/08/16 18:42 Blood Pressure 132/65 09/08/16 18:42 O2 Sat by Pulse Oximetry (%) 94 L 09/07/16 20:44 Labs: CBC, BMP 09/06/16 07:00 09/06/16 07:00 INR, PTT INR 1.02 (0.82-1.09) 08/31/16 09:45 Problem List - Problems (1) Cough Code(s): R05 - COUGH (2) HTN (hypertension) Code(s): I10 - ESSENTIAL (PRIMARY) HYPERTENSION (3) Pneumonia Code(s): J18.9 - PNEUMONIA, UNSPECIFIED ORGANISM (4) Aortic stenosis Assessment/Plan: [id number] Aortic stenosis, with normal LVEF, normal LV size and wall thickness, mild AR and MR, mild LAE by recent ECHO. Code(s): I35.0 - NONRHEUMATIC AORTIC (VALVE) STENOSIS (5) Bilateral lower extremity edema Assessment/Plan: productive cough. +JNP. diastolic CHF; moderately severe . PNA. Will give small dose IV furosemide; f/u Is and Os, daily weight; electrolytes; BUN/Cr. CXR. Code(s): R60.0 - LOCALIZED EDEMA
[2016-09-08] MEDS ORDERED: FUROSEMIDE 40 MG/4 ML INJECTABLE VIAL ONE (22:41)
[2016-09-08] MEDS ORDERED: FUROSEMIDE 40 MG/4 ML INJECTABLE VIAL IVPUSH ONE (23:45)
--- NOTE | 2016-09-08 23:46 | PN ---
Progress Note, Physician Chief Complaint: No new complaints - Current Medication List Current Medications: Active Medications Albuterol Sulfate (Ventolin 0.083% Nebulizer Soln -) 1 amp NEB Q4H PRN PRN Reason: SHORT OF BREATH/WHEEZING Last Admin: 09/07/16 22:25 Dose: 1 amp Albuterol/Ipratropium (Duoneb -) 1 amp NEB QIDR [facility] Last Admin: 09/08/16 23:06 Dose: 1 amp Aspirin (Asa -) 81 mg PO DAILY [facility] Last Admin: 09/08/16 09:27 Dose: 81 mg Ceftriaxone Sodium (Rocephin 1gm Ivpb (Pre-Docked)) 1 gm IVPB DAILY [facility] Last Admin: 09/08/16 09:27 Dose: 1 gm Furosemide (Lasix Injection -) 20 mg IVPUSH ONCE ONE Stop: 09/08/16 23:46 Last Admin: 09/08/16 22:45 Dose: 20 mg Guaifenesin (Mucinex Dm -) 2 tablet PO BID [facility] Last Admin: 09/08/16 22:45 Dose: Not Given Azithromycin 250 mg/ Dextrose 250 mls @ 250 mls/hr IVPB DAILY [facility] Last Admin: 09/08/16 09:57 Dose: 250 mls/hr Nifedipine (Procardia Xl -) 60 mg PO DAILY [facility] Last Admin: 09/08/16 09:27 Dose: 60 mg Prednisone (Deltasone -) 60 mg PO DAILY [facility] Last Admin: 09/08/16 09:27 Dose: 60 mg - Objective Vital Signs: Vital Signs Temperature 98.3 F 09/08/16 18:42 Pulse Rate 85 09/08/16 18:42 Respiratory Rate 18 09/08/16 18:42 Blood Pressure 132/65 09/08/16 18:42 O2 Sat by Pulse Oximetry (%) 94 L 09/07/16 20:44 Neck: Yes: Supple Cardiovascular: Yes: WNL, Regular Rate and Rhythm Respiratory: Yes: Rhonchi Gastrointestinal: Yes: WNL, Normal Bowel Sounds, Soft Labs: CBC, BMP 09/06/16 07:00 09/06/16 07:00 INR, PTT INR 1.02 (0.82-1.09) 08/31/16 09:45 Problem List - Problems (1) Acute hypoxemic respiratory failure Assessment/Plan: Pt w/ multilobar pneumonia Cont IV ceftriaxone/zithro Prednisone Cont nebulizers Code(s): J96.01 - ACUTE RESPIRATORY FAILURE WITH HYPOXIA (2) HTN (hypertension) Assessment/Plan: Cont procardia Cont to monitor Code(s): I10 - ESSENTIAL (PRIMARY) HYPERTENSION
[2016-09-09] MEDS: ALBUTEROL SO4 2.5/IPRATROPIUM 0.5 INH SOL 3 ML VIAL.NEB. NEB SCH ×4 (06:22→23:12)
[2016-09-09] MEDS ORDERED: PT OWN MED DRAWER 7, Y5N ONE ×2 (08:13→21:10)
[2016-09-09 08:54] LABS: CALCIUM 8.3 mg/dL (8.5-10.1); MAGNESIUM 2.7 mg/dL (1.8-2.4)
[2016-09-09] MEDS: cefTRIAXone 1 GM/50 ML BAG (PRE-DOCKED) IVPB SCH (09:38)
[2016-09-09] MEDS: AZITHROMYCIN IVPB 250 MG in DEXTROSE 5%-WATER - 250 ML IVPB SCH (09:46)
[2016-09-09] MEDS: guaiFENesin/D-METHORPHAN HB 1 EACH TAB.ER.12H PO SCH ×2 (09:46→21:18)
[2016-09-09] MEDS: ASPIRIN 81 MG CHEWABLE TABLETS PO SCH (09:46)
[2016-09-09] MEDS: predniSONE 20 MG TABLET (UD) PO SCH (09:46)
[2016-09-09] MEDS: NIFEdipine E.R 60 MG TABLET (UD) PO SCH (09:46)
--- NOTE | 2016-09-09 12:24 | PN ---
Progress Note (short form) - Note Progress Note: PULMONARY Still with cough productive of yellow sputum. Some shortness of breath. No fevers or chills. Last Vital Signs Temp Pulse Resp BP Pulse Ox 97.8 F 90 20 124/71 96 09/09/16 05:39 09/09/16 10:09 09/09/16 10:09 09/09/16 10:09 09/08/16 22:00 Gen: NAD in chair but with frequent cough Heart: RRR Lung: bibasilar rales Abd: soft, nontender Ext: no edema CBC, BMP 09/06/16 07:00 09/09/16 06:20 Active Medications Albuterol Sulfate (Ventolin 0.083% Nebulizer Soln -) 1 amp NEB Q4H PRN PRN Reason: SHORT OF BREATH/WHEEZING Last Admin: 09/07/16 22:25 Dose: 1 amp Albuterol/Ipratropium (Duoneb -) 1 amp NEB QIDR [facility] Last Admin: 09/09/16 11:36 Dose: 1 amp Aspirin (Asa -) 81 mg PO DAILY [facility] Last Admin: 09/09/16 09:46 Dose: 81 mg Ceftriaxone Sodium (Rocephin 1gm Ivpb (Pre-Docked)) 1 gm IVPB DAILY [facility] Last Admin: 09/09/16 09:38 Dose: 1 gm Guaifenesin (Mucinex Dm -) 2 tablet PO BID [facility] Last Admin: 09/09/16 09:46 Dose: 2 tablet Azithromycin 250 mg/ Dextrose 250 mls @ 250 mls/hr IVPB DAILY [facility] Last Admin: 09/09/16 09:46 Dose: 250 mls/hr Nifedipine (Procardia Xl -) 60 mg PO DAILY [facility] Last Admin: 09/09/16 09:46 Dose: 60 mg Prednisone (Deltasone -) 60 mg PO DAILY [facility] Last Admin: 09/09/16 09:46 Dose: 60 mg A/P Acute Hypoxic Respiratory Failure Pneumonia CAD Acute Kidney Injury improving Lactic Acidosis resolved - O2 to keep SpO2 >90% - continue antibiotics - prednisone taper - will change inhaled bronchodilators to standing - cough suppressants - DVT prophylaxis
--- NOTE | 2016-09-09 14:19 | PN ---
Progress Note, Physician Chief Complaint: Pt OOB in chair. Daughter (RN) at bedside; says her mother was short of breath after walking to the bathroom a few steps away. History of Present Illness: The patient is an 86 year old female, with a significant past medical history of CAD s/p 5x stents, HTN, anemia, diverticulosis, who presents to the emergency department with a recent diagnosis of pneumonia as an outpatient by PMD. Daughter reports taking the patient to see yesterday where she was diagnosed with pneumonia (after x-ray) and discharged home with antibiotics. Patient arrives complaining of SOB and intermittent cough for the past week but worsened the past 2 days. She reports coughing up a white substance. Daughter reports her has had similar symptoms that have now been resolved. She denies having her flu shot this season. She also reports having a oral temp to 101 last night. She denies chest pain. She denies recent, chills, leb swelling, orthopnea, headache or dizziness. She denies recent nausea , vomit, diarrhea or constipation. Patient arrives with O2 sat is 73. Allergies: NKDA Past surgical history: bilateral THR, appendectomy Social history: Nonsmoker. Denies EtOH use and drug use. PCP: - Current Medication List Current Medications: Active Medications Albuterol Sulfate (Ventolin 0.083% Nebulizer Soln -) 1 amp NEB Q4H PRN PRN Reason: SHORT OF BREATH/WHEEZING Last Admin: 09/07/16 22:25 Dose: 1 amp Albuterol/Ipratropium (Duoneb -) 1 amp NEB QIDR [facility] Last Admin: 09/09/16 11:36 Dose: 1 amp Aspirin (Asa -) 81 mg PO DAILY [facility] Last Admin: 09/09/16 09:46 Dose: 81 mg Ceftriaxone Sodium (Rocephin 1gm Ivpb (Pre-Docked)) 1 gm IVPB DAILY [facility] Last Admin: 09/09/16 09:38 Dose: 1 gm Guaifenesin (Mucinex Dm -) 2 tablet PO BID [facility] Last Admin: 09/09/16 09:46 Dose: 2 tablet Azithromycin 250 mg/ Dextrose 250 mls @ 250 mls/hr IVPB DAILY [facility] Last Admin: 09/09/16 09:46 Dose: 250 mls/hr Nifedipine (Procardia Xl -) 60 mg PO DAILY [facility] Last Admin: 09/09/16 09:46 Dose: 60 mg Prednisone (Deltasone -) 60 mg PO DAILY [facility] Last Admin: 09/09/16 09:46 Dose: 60 mg - Objective Vital Signs: Vital Signs Temperature 97.8 F 09/09/16 05:39 Pulse Rate 90 09/09/16 10:09 Respiratory Rate 20 09/09/16 10:09 Blood Pressure 124/71 09/09/16 10:09 O2 Sat by Pulse Oximetry (%) 96 09/08/16 22:00 Constitutional: Yes: Calm Eyes: Yes: WNL HENT: Yes: WNL Cardiovascular: Yes: Regular Rate and Rhythm Respiratory: Yes: Diminished, Rales Gastrointestinal: Yes: Soft ...Rectal Exam: Yes: Deferred Genitourinary: No: Anuria Musculoskeletal: Yes: Muscle Weakness Extremities: Yes: Cool Edema: Yes Edema: LLE: 2+, RLE: 2+ Peripheral Pulses WNL: Yes Integumentary: Yes: WNL Neurological: Yes: Alert, Oriented, Weakness Psychiatric: Yes: Alert, Oriented Labs: CBC, BMP 09/06/16 07:00 09/09/16 06:20 INR, PTT INR 1.02 (0.82-1.09) 08/31/16 09:45 - ....Imaging Chest X-ray: Pending Problem List - Problems (1) Cough Assessment/Plan: on IV antibiotics. Code(s): R05 - COUGH (2) HTN (hypertension) Assessment/Plan: on nifedipine, and received furosemide yesterday. BP well-controlled. Code(s): I10 - ESSENTIAL (PRIMARY) HYPERTENSION (3) Pneumonia Assessment/Plan: on antibiotics. Code(s): J18.9 - PNEUMONIA, UNSPECIFIED ORGANISM (4) Aortic stenosis Assessment/Plan: [id number] Aortic stenosis, with normal LVEF, normal LV size and wall thickness, mild AR and MR, mild LAE by recent ECHO. Code(s): I35.0 - NONRHEUMATIC AORTIC (VALVE) STENOSIS (5) Bilateral lower extremity edema Assessment/Plan: productive cough; bilateral leg edema. No JNP. diastolic CHF; moderately severe . PNA. Gave small dose IV furosemide 09/08/16 (caution with significant ); increase in BUN to 35. F/u Is and Os, daily weight, electrolytes (K WNL; Mg slightly elevated); TSH. CXR ordered. Code(s): R60.0 - LOCALIZED EDEMA (6) Renal dysfunction Code(s): N28.9 - DISORDER OF KIDNEY AND URETER, UNSPECIFIED
[2016-09-09] MEDS: METOPROLOL SUCCINATE 25 MG TAB.SR.24H (FP) PO SCH (16:16)
[2016-09-09] MEDS: ALBUTEROL SO4 0.083% IH SOL 2.5 MG/3 ML VIAL.NEB. NEB PRN (20:45)
--- NOTE | 2016-09-09 23:14 | PN ---
Progress Note, Physician History of Present Illness: Pt w/ cough - Current Medication List Current Medications: Active Medications Albuterol Sulfate (Ventolin 0.083% Nebulizer Soln -) 1 amp NEB Q4H PRN PRN Reason: SHORT OF BREATH/WHEEZING Last Admin: 09/09/16 20:45 Dose: 1 amp Albuterol/Ipratropium (Duoneb -) 1 amp NEB QIDR [facility] Last Admin: 09/09/16 23:12 Dose: 1 amp Aspirin (Asa -) 81 mg PO DAILY [facility] Last Admin: 09/09/16 09:46 Dose: 81 mg Ceftriaxone Sodium (Rocephin 1gm Ivpb (Pre-Docked)) 1 gm IVPB DAILY [facility] Last Admin: 09/09/16 09:38 Dose: 1 gm Guaifenesin (Mucinex Dm -) 2 tablet PO BID [facility] Last Admin: 09/09/16 21:18 Dose: 2 tablet Azithromycin 250 mg/ Dextrose 250 mls @ 250 mls/hr IVPB DAILY [facility] Last Admin: 09/09/16 09:46 Dose: 250 mls/hr Metoprolol Succinate (Toprol Xl -) 12.5 mg PO DAILY [facility] Last Admin: 09/09/16 16:16 Dose: 12.5 mg Nifedipine (Procardia Xl -) 60 mg PO DAILY [facility] Last Admin: 09/09/16 09:46 Dose: 60 mg Prednisone (Deltasone -) 60 mg PO DAILY [facility] Last Admin: 09/09/16 09:46 Dose: 60 mg - Objective Vital Signs: Vital Signs Temperature 97.5 F L 09/09/16 20:40 Pulse Rate 77 09/09/16 20:40 Respiratory Rate 20 09/09/16 20:40 Blood Pressure 113/67 09/09/16 20:40 O2 Sat by Pulse Oximetry (%) 100 09/09/16 20:40 Neck: Yes: Supple Cardiovascular: Yes: WNL, Regular Rate and Rhythm Respiratory: Yes: Other (Coarse bs b/l) Gastrointestinal: Yes: WNL, Normal Bowel Sounds, Soft Labs: CBC, BMP 09/06/16 07:00 09/09/16 06:20 INR, PTT INR 1.02 (0.82-1.09) 08/31/16 09:45 Problem List - Problems (1) Acute hypoxemic respiratory failure Assessment/Plan: Pt w/ multilobar pneumonia Cont IV ceftriaxone/zithro Cont prednisone Cont nebulizers DC planning for am Will need home O2 Code(s): J96.01 - ACUTE RESPIRATORY FAILURE WITH HYPOXIA (2) HTN (hypertension) Assessment/Plan: Cont procardia Cont to monitor Code(s): I10 - ESSENTIAL (PRIMARY) HYPERTENSION
[2016-09-10] MEDS: ALBUTEROL SO4 2.5/IPRATROPIUM 0.5 INH SOL 3 ML VIAL.NEB. NEB SCH ×3 (06:25→18:27)
[2016-09-10] MEDS ORDERED: PT OWN MED DRAWER 7, Y5N ONE ×2 (08:59→20:13)
[2016-09-10] MEDS: cefTRIAXone 1 GM/50 ML BAG (PRE-DOCKED) IVPB SCH (09:07)
[2016-09-10] MEDS: ASPIRIN 81 MG CHEWABLE TABLETS PO SCH (09:07)
[2016-09-10] MEDS: predniSONE 20 MG TABLET (UD) PO SCH (09:07)
[2016-09-10] MEDS: METOPROLOL SUCCINATE 25 MG TAB.SR.24H (FP) PO SCH (09:07)
[2016-09-10] MEDS: NIFEdipine E.R 60 MG TABLET (UD) PO SCH (09:07)
[2016-09-10] MEDS: guaiFENesin/D-METHORPHAN HB 1 EACH TAB.ER.12H PO SCH ×2 (09:08→21:01)
[2016-09-10] MEDS: AZITHROMYCIN IVPB 250 MG in DEXTROSE 5%-WATER - 250 ML IVPB SCH (09:12)
--- NOTE | 2016-09-10 11:39 | PN ---
Progress Note, Physician History of Present Illness: seen and examined today in nad. still c/o congestion in throat. no overnight events. no new complaints. - Current Medication List Current Medications: Active Medications Albuterol Sulfate (Ventolin 0.083% Nebulizer Soln -) 1 amp NEB Q4H PRN PRN Reason: SHORT OF BREATH/WHEEZING Last Admin: 09/09/16 20:45 Dose: 1 amp Albuterol/Ipratropium (Duoneb -) 1 amp NEB QIDR [facility] Last Admin: 09/10/16 06:25 Dose: 1 amp Aspirin (Asa -) 81 mg PO DAILY [facility] Last Admin: 09/10/16 09:07 Dose: 81 mg Ceftriaxone Sodium (Rocephin 1gm Ivpb (Pre-Docked)) 1 gm IVPB DAILY [facility] Last Admin: 09/10/16 09:07 Dose: 1 gm Guaifenesin (Mucinex Dm -) 2 tablet PO BID [facility] Last Admin: 09/10/16 09:08 Dose: 2 tablet Azithromycin 250 mg/ Dextrose 250 mls @ 250 mls/hr IVPB DAILY [facility] Last Admin: 09/10/16 09:12 Dose: 250 mls/hr Metoprolol Succinate (Toprol Xl -) 12.5 mg PO DAILY [facility] Last Admin: 09/10/16 09:07 Dose: 12.5 mg Nifedipine (Procardia Xl -) 60 mg PO DAILY [facility] Last Admin: 09/10/16 09:07 Dose: 60 mg Prednisone (Deltasone -) 60 mg PO DAILY [facility] Last Admin: 09/10/16 09:07 Dose: 60 mg - Objective Vital Signs: Vital Signs Temperature 98.3 F 09/10/16 10:00 Pulse Rate 76 09/10/16 10:00 Respiratory Rate 18 09/10/16 10:00 Blood Pressure 120/61 09/10/16 10:00 O2 Sat by Pulse Oximetry (%) 94 L 09/10/16 10:00 Constitutional: Yes: Well Nourished, No Distress, Calm Eyes: Yes: WNL, Conjunctiva Clear, EOM Intact, PERRL HENT: Yes: WNL, Atraumatic, Normocephalic Neck: Yes: WNL, Supple, Trachea Midline Cardiovascular: Yes: Regular Rate and Rhythm, Murmur, S1, S2. No: Bradycardia, Tachycardia, Pulse Irregular, Bruit, JVD, Gallop, Rub, S3, S4, Varicosities Respiratory: Yes: Regular, On Nasal O2, Rhonchi. No: Rales, Wheezes Gastrointestinal: Yes: WNL, Normal Bowel Sounds, Soft. No: Distention, Tenderness Musculoskeletal: Yes: WNL Extremities: Yes: WNL Edema: No Peripheral Pulses WNL: Yes Peripheral Pulses: Left Doralis Pedis: 2+, Right Dorsalis Pedis: 2+ Integumentary: Yes: WNL Neurological: Yes: WNL, Alert, Oriented, Cran Nerves II-XII Intact ...Motor Strength: WNL Psychiatric: Yes: WNL, Alert, Oriented Labs: CBC, BMP 09/06/16 07:00 09/09/16 06:20 INR, PTT INR 1.02 (0.82-1.09) 08/31/16 09:45 - ....Imaging Chest X-ray: Report Reviewed, Image Reviewed EKG: Report Reviewed, Image Reviewed Other: Report Reviewed, Image Reviewed (no longer on tele) Assessment/Plan 86 year old woman with a history of HTN, CAD with reported 5 stents in the past (unknown details), anemia, admitted with sob, productive cough, severe hypoxia. 1. RML PNA on CT 2. Profound hypoxia 3. Initial concern for pulmonary embolism, not seen on CTA chest 4. HTN with CKD 5. Aortic stenosis REC: Echo showed normal LV systolic function, mod to sev , mild mr, mild tr, mild AR, trivial pericardial effusion, normal RV size and function CTA done-reportedly no evidence of PE, full AC stopped, start DVT ppx as appropriate Pt is euvolemic, does not require diuresis HTN variable, overall adequately controlled, cont current medical regimen for now then resume other home meds as needed Outpatient follow for aortic stenosis off tele, no sig arrhythmias while on tele, only very short few beats psvt pulmonary and ID following No additional planned inpatient cardiac work up
--- NOTE | 2016-09-10 12:35 | PN ---
Progress Note, Physician History of Present Illness: pulmonary alert,still congested,+cough . O2 sat 92% on O2 - Current Medication List Current Medications: Active Medications Albuterol Sulfate (Ventolin 0.083% Nebulizer Soln -) 1 amp NEB Q4H PRN PRN Reason: SHORT OF BREATH/WHEEZING Last Admin: 09/09/16 20:45 Dose: 1 amp Albuterol/Ipratropium (Duoneb -) 1 amp NEB QIDR [facility] Last Admin: 09/10/16 11:49 Dose: 1 amp Aspirin (Asa -) 81 mg PO DAILY [facility] Last Admin: 09/10/16 09:07 Dose: 81 mg Ceftriaxone Sodium (Rocephin 1gm Ivpb (Pre-Docked)) 1 gm IVPB DAILY [facility] Last Admin: 09/10/16 09:07 Dose: 1 gm Guaifenesin (Mucinex Dm -) 2 tablet PO BID [facility] Last Admin: 09/10/16 09:08 Dose: 2 tablet Azithromycin 250 mg/ Dextrose 250 mls @ 250 mls/hr IVPB DAILY [facility] Last Admin: 09/10/16 09:12 Dose: 250 mls/hr Metoprolol Succinate (Toprol Xl -) 12.5 mg PO DAILY [facility] Last Admin: 09/10/16 09:07 Dose: 12.5 mg Nifedipine (Procardia Xl -) 60 mg PO DAILY [facility] Last Admin: 09/10/16 09:07 Dose: 60 mg Prednisone (Deltasone -) 60 mg PO DAILY [facility] Last Admin: 09/10/16 09:07 Dose: 60 mg - Objective Vital Signs: Vital Signs Temperature 98.3 F 09/10/16 10:00 Pulse Rate 89 09/10/16 12:29 Respiratory Rate 18 09/10/16 10:00 Blood Pressure 120/61 09/10/16 10:00 O2 Sat by Pulse Oximetry (%) 92 L 09/10/16 12:29 Constitutional: Yes: Calm, Thin Eyes: Yes: WNL HENT: Yes: WNL, Tonsillar Exudate Cardiovascular: Yes: Regular Rate and Rhythm, S1, S2 Respiratory: Yes: Rhonchi (SCATTERED CASEY RHONCHI,BIBASILAR CRACKLES) Gastrointestinal: Yes: Normal Bowel Sounds, Soft Extremities: Yes: WNL Edema: No Labs: CBC, BMP 09/06/16 07:00 09/09/16 06:20 INR, PTT INR 1.02 (0.82-1.09) 08/31/16 09:45 Problem List - Problems (1) Cough Code(s): R05 - COUGH (2) Hypoxia Code(s): R09.02 - HYPOXEMIA (3) Acute kidney injury Code(s): N17.9 - ACUTE KIDNEY FAILURE, UNSPECIFIED (4) Acute hypoxemic respiratory failure Code(s): J96.01 - ACUTE RESPIRATORY FAILURE WITH HYPOXIA (5) Pneumonia Code(s): J18.9 - PNEUMONIA, UNSPECIFIED ORGANISM (6) Lactate blood increased Code(s): E87.2 - ACIDOSIS Assessment/Plan IMP ACUTE HYPOXEMIC RESPIRATORY FAILURE SLOWLY IMPROVING PNEUMONIA HTN ASHD S/P STENT X5 ACUTE KIDNEY INJURY ELEVATED LACTATE LEVEL NORMAL PLAN IV ANTIBIOTICS PER ID INHALED BRONCHODILATORS STEROID TAPER SUPPLEMENTAL O2 ADD MUCOMYST DR RICHARDSON
--- NOTE | 2016-09-10 13:41 | PN ---
Progress Note, Physician History of Present Illness: OOB in chair Less cough No c/o chest pain/ dyspnea No c/o fever/ chills - Current Medication List Current Medications: Active Medications Albuterol Sulfate (Ventolin 0.083% Nebulizer Soln -) 1 amp NEB Q4H PRN PRN Reason: SHORT OF BREATH/WHEEZING Last Admin: 09/09/16 20:45 Dose: 1 amp Albuterol/Ipratropium (Duoneb -) 1 amp NEB QIDR [facility] Last Admin: 09/10/16 11:49 Dose: 1 amp Aspirin (Asa -) 81 mg PO DAILY [facility] Last Admin: 09/10/16 09:07 Dose: 81 mg Ceftriaxone Sodium (Rocephin 1gm Ivpb (Pre-Docked)) 1 gm IVPB DAILY [facility] Last Admin: 09/10/16 09:07 Dose: 1 gm Guaifenesin (Mucinex Dm -) 2 tablet PO BID [facility] Last Admin: 09/10/16 09:08 Dose: 2 tablet Azithromycin 250 mg/ Dextrose 250 mls @ 250 mls/hr IVPB DAILY [facility] Last Admin: 09/10/16 09:12 Dose: 250 mls/hr Metoprolol Succinate (Toprol Xl -) 12.5 mg PO DAILY [facility] Last Admin: 09/10/16 09:07 Dose: 12.5 mg Nifedipine (Procardia Xl -) 60 mg PO DAILY [facility] Last Admin: 09/10/16 09:07 Dose: 60 mg Prednisone (Deltasone -) 60 mg PO DAILY [facility] Last Admin: 09/10/16 09:07 Dose: 60 mg - Objective Vital Signs: Vital Signs Temperature 98.3 F 09/10/16 10:00 Pulse Rate 89 09/10/16 12:29 Respiratory Rate 18 09/10/16 10:00 Blood Pressure 120/61 09/10/16 10:00 O2 Sat by Pulse Oximetry (%) 92 L 09/10/16 12:29 Constitutional: Yes: No Distress Eyes: Yes: Conjunctiva Clear Cardiovascular: Yes: Regular Rate and Rhythm, S1, S2 Respiratory: Yes: Other (+ crepitations bilaterally) Gastrointestinal: Yes: Normal Bowel Sounds, Soft. No: Tenderness Edema: No Labs: CBC, BMP 09/06/16 07:00 09/09/16 06:20 INR, PTT INR 1.02 (0.82-1.09) 08/31/16 09:45 Assessment/Plan Bilateral pneumonia improved Sepsis secondary to pneumonia Day #10 IV antibiotics Substitute ceftin 500mg po bid Bronchodilators/ steroids
[2016-09-10] MEDS: CEFUROXIME AXETIL 500 MG TABLET PO SCH ×2 (14:15→21:01)
--- NOTE | 2016-09-10 23:59 | PN ---
Progress Note, Physician History of Present Illness: No new complaint - Current Medication List Current Medications: Active Medications Albuterol Sulfate (Ventolin 0.083% Nebulizer Soln -) 1 amp NEB Q4H PRN PRN Reason: SHORT OF BREATH/WHEEZING Last Admin: 09/09/16 20:45 Dose: 1 amp Albuterol/Ipratropium (Duoneb -) 1 amp NEB QIDR [facility] Last Admin: 09/10/16 18:27 Dose: 1 amp Aspirin (Asa -) 81 mg PO DAILY [facility] Last Admin: 09/10/16 09:07 Dose: 81 mg Cefuroxime Axetil (Ceftin -) 500 mg PO BID [facility] Last Admin: 09/10/16 21:01 Dose: 500 mg Guaifenesin (Mucinex Dm -) 2 tablet PO BID [facility] Last Admin: 09/10/16 21:01 Dose: 2 tablet Metoprolol Succinate (Toprol Xl -) 12.5 mg PO DAILY [facility] Last Admin: 09/10/16 09:07 Dose: 12.5 mg Nifedipine (Procardia Xl -) 60 mg PO DAILY [facility] Last Admin: 09/10/16 09:07 Dose: 60 mg Prednisone (Deltasone -) 60 mg PO DAILY [facility] Last Admin: 09/10/16 09:07 Dose: 60 mg - Objective Vital Signs: Vital Signs Temperature 98.0 F 09/10/16 20:00 Pulse Rate 74 09/10/16 20:00 Respiratory Rate 18 09/10/16 21:00 Blood Pressure 131/70 09/10/16 20:00 O2 Sat by Pulse Oximetry (%) 92 L 09/10/16 12:29 Neck: Yes: Supple Cardiovascular: Yes: WNL, Regular Rate and Rhythm Respiratory: Yes: WNL, Regular, CTA Bilaterally Labs: CBC, BMP 09/06/16 07:00 09/09/16 06:20 INR, PTT INR 1.02 (0.82-1.09) 08/31/16 09:45 Problem List - Problems (1) Acute hypoxemic respiratory failure Assessment/Plan: Pt w/ multilobar pneumonia Pt now on ceftin/prednisone dc planning for am on home O2 Code(s): J96.01 - ACUTE RESPIRATORY FAILURE WITH HYPOXIA (2) HTN (hypertension) Assessment/Plan: Cont procardia Cont to monitor Code(s): I10 - ESSENTIAL (PRIMARY) HYPERTENSION
[2016-09-11] MEDS: ALBUTEROL SO4 2.5/IPRATROPIUM 0.5 INH SOL 3 ML VIAL.NEB. NEB SCH ×4 (06:32→17:21)
[2016-09-11] MEDS ORDERED: PT OWN MED DRAWER 7, Y5N ONE ×2 (09:24→20:18)
[2016-09-11] MEDS: ASPIRIN 81 MG CHEWABLE TABLETS PO SCH (09:27)
[2016-09-11] MEDS: NIFEdipine E.R 60 MG TABLET (UD) PO SCH (09:27)
[2016-09-11] MEDS: predniSONE 20 MG TABLET (UD) PO SCH (09:27)
[2016-09-11] MEDS: CEFUROXIME AXETIL 500 MG TABLET PO SCH ×2 (09:27→21:03)
[2016-09-11] MEDS: guaiFENesin/D-METHORPHAN HB 1 EACH TAB.ER.12H PO SCH ×2 (09:28→21:03)
[2016-09-11] MEDS: METOPROLOL SUCCINATE 25 MG TAB.SR.24H (FP) PO SCH (09:28)
--- NOTE | 2016-09-11 12:05 | PN ---
Progress Note, Physician History of Present Illness: pulmonary alert,oob-chair,+cough,less dyspneic - Current Medication List Current Medications: Active Medications Albuterol Sulfate (Ventolin 0.083% Nebulizer Soln -) 1 amp NEB Q4H PRN PRN Reason: SHORT OF BREATH/WHEEZING Last Admin: 09/09/16 20:45 Dose: 1 amp Albuterol/Ipratropium (Duoneb -) 1 amp NEB QIDR [facility] Last Admin: 09/11/16 11:30 Dose: 1 amp Aspirin (Asa -) 81 mg PO DAILY [facility] Last Admin: 09/11/16 09:27 Dose: 81 mg Cefuroxime Axetil (Ceftin -) 500 mg PO BID [facility] Last Admin: 09/11/16 09:27 Dose: 500 mg Guaifenesin (Mucinex Dm -) 2 tablet PO BID [facility] Last Admin: 09/11/16 09:28 Dose: 2 tablet Metoprolol Succinate (Toprol Xl -) 12.5 mg PO DAILY [facility] Last Admin: 09/11/16 09:28 Dose: 12.5 mg Nifedipine (Procardia Xl -) 60 mg PO DAILY [facility] Last Admin: 09/11/16 09:27 Dose: 60 mg Prednisone (Deltasone -) 60 mg PO DAILY [facility] Last Admin: 09/11/16 09:27 Dose: 60 mg - Objective Vital Signs: Vital Signs Temperature 98.0 F 09/11/16 10:00 Pulse Rate 82 09/11/16 10:00 Respiratory Rate 18 09/11/16 10:00 Blood Pressure 153/91 09/11/16 10:00 O2 Sat by Pulse Oximetry (%) 94 L 09/11/16 10:00 Constitutional: Yes: Well Nourished, Calm Eyes: Yes: WNL HENT: Yes: WNL Neck: Yes: Rigid Cardiovascular: Yes: Regular Rate and Rhythm, S1, S2 Respiratory: Yes: Rhonchi (scattered boo rhonchi) Gastrointestinal: Yes: Normal Bowel Sounds, Soft Extremities: Yes: WNL Edema: No Labs: Problem List - Problems (1) Cough Code(s): R05 - COUGH (2) Hypoxia Code(s): R09.02 - HYPOXEMIA (3) Acute kidney injury Code(s): N17.9 - ACUTE KIDNEY FAILURE, UNSPECIFIED (4) Acute hypoxemic respiratory failure Code(s): J96.01 - ACUTE RESPIRATORY FAILURE WITH HYPOXIA (5) Pneumonia Code(s): J18.9 - PNEUMONIA, UNSPECIFIED ORGANISM (6) Lactate blood increased Code(s): E87.2 - ACIDOSIS Assessment/Plan IMP ACUTE HYPOXEMIC RESPIRATORY FAILURE IMPROVING PNEUMONIA HTN ASHD S/P STENT X5 ACUTE KIDNEY INJURY ELEVATED LACTATE LEVEL NORMAL PLAN INHALED BRONCHODILATORS STEROIDS SUPPLEMENTAL O2 MUCOMYST DR RICHARDSON
[2016-09-11] MEDS ORDERED: SODIUM CHLORIDE 500 ML IV STA (13:50)
--- NOTE | 2016-09-11 13:59 | PN ---
Progress Note (short form) - Note Progress Note: called from RN that pts BP was low when sitting up in chair. improved when lying down in bed. likely orthostatic hypotension from deconditioning from prolonged hospitalization as well as degree of intravascular depletion based on elevated bun/creat ratio. ordered NS 500cc IVF bolus repeat bp after IVF
--- NOTE | 2016-09-11 22:58 | PN ---
Progress Note, Physician - Current Medication List Current Medications: Active Medications Albuterol/Ipratropium (Duoneb -) 1 amp NEB QIDR [facility] Last Admin: 09/11/16 17:21 Dose: 1 amp Aspirin (Asa -) 81 mg PO DAILY [facility] Last Admin: 09/11/16 09:27 Dose: 81 mg Cefuroxime Axetil (Ceftin -) 500 mg PO BID [facility] Last Admin: 09/11/16 21:03 Dose: 500 mg Guaifenesin (Mucinex Dm -) 2 tablet PO BID [facility] Last Admin: 09/11/16 21:03 Dose: 2 tablet Metoprolol Succinate (Toprol Xl -) 12.5 mg PO DAILY [facility] Last Admin: 09/11/16 09:28 Dose: 12.5 mg Nifedipine (Procardia Xl -) 60 mg PO DAILY [facility] Last Admin: 09/11/16 09:27 Dose: 60 mg Prednisone (Deltasone -) 60 mg PO DAILY [facility] Last Admin: 09/11/16 09:27 Dose: 60 mg - Objective Vital Signs: Vital Signs Temperature 98.5 F 09/11/16 22:00 Pulse Rate 68 09/11/16 22:00 Respiratory Rate 20 09/11/16 22:00 Blood Pressure 103/50 09/11/16 22:00 O2 Sat by Pulse Oximetry (%) 95 09/11/16 21:00 Labs: CBC, BMP 09/06/16 07:00 09/09/16 06:20 INR, PTT INR 1.02 (0.82-1.09) 08/31/16 09:45 Problem List - Problems (1) Acute hypoxemic respiratory failure Code(s): J96.01 - ACUTE RESPIRATORY FAILURE WITH HYPOXIA (2) HTN (hypertension) Code(s): I10 - ESSENTIAL (PRIMARY) HYPERTENSION
[2016-09-12] MEDS: ALBUTEROL SO4 2.5/IPRATROPIUM 0.5 INH SOL 3 ML VIAL.NEB. NEB SCH ×4 (00:08→18:30)
[2016-09-12] MEDS ORDERED: PT OWN MED DRAWER 7, Y5N ONE (08:34)
[2016-09-12] MEDS: CEFUROXIME AXETIL 500 MG TABLET PO SCH (10:29)
[2016-09-12] MEDS: predniSONE 20 MG TABLET (UD) PO SCH (10:29)
[2016-09-12] MEDS: ASPIRIN 81 MG CHEWABLE TABLETS PO SCH (10:30)
[2016-09-12] MEDS: guaiFENesin/D-METHORPHAN HB 1 EACH TAB.ER.12H PO SCH (10:30)
[2016-09-12] MEDS: NIFEdipine E.R 60 MG TABLET (UD) PO SCH (10:30)
[2016-09-12] MEDS: METOPROLOL SUCCINATE 25 MG TAB.SR.24H (FP) PO SCH (10:30)
--- NOTE | 2016-09-12 13:03 | PN ---
Progress Note, Physician History of Present Illness: pulmonary alert,-sob,+cough - Current Medication List Current Medications: Active Medications Albuterol/Ipratropium (Duoneb -) 1 amp NEB QIDR [facility] Last Admin: 09/12/16 11:11 Dose: 1 amp Aspirin (Asa -) 81 mg PO DAILY [facility] Last Admin: 09/12/16 10:30 Dose: 81 mg Cefuroxime Axetil (Ceftin -) 500 mg PO BID [facility] Last Admin: 09/12/16 10:29 Dose: 500 mg Guaifenesin (Mucinex Dm -) 2 tablet PO BID [facility] Last Admin: 09/12/16 10:30 Dose: 2 tablet Metoprolol Succinate (Toprol Xl -) 12.5 mg PO DAILY [facility] Last Admin: 09/12/16 10:30 Dose: 12.5 mg Nifedipine (Procardia Xl -) 60 mg PO DAILY [facility] Last Admin: 09/12/16 10:30 Dose: 60 mg Prednisone (Deltasone -) 60 mg PO DAILY [facility] Last Admin: 09/12/16 10:29 Dose: 60 mg - Objective Vital Signs: Vital Signs Temperature 98.3 F 09/12/16 10:28 Pulse Rate 82 09/12/16 10:28 Respiratory Rate 22 09/12/16 10:28 Blood Pressure 118/65 09/12/16 10:28 O2 Sat by Pulse Oximetry (%) 94 L 09/12/16 10:35 Constitutional: Yes: Well Nourished, Calm Eyes: Yes: WNL HENT: Yes: WNL Neck: Yes: WNL Cardiovascular: Yes: Regular Rate and Rhythm, S1, S2 Respiratory: Yes: Diminished Gastrointestinal: Yes: Normal Bowel Sounds, Soft Extremities: Yes: WNL Edema: No Labs: CBC, BMP 09/06/16 07:00 09/09/16 06:20 INR, PTT INR 1.02 (0.82-1.09) 08/31/16 09:45 Problem List - Problems (1) Cough Code(s): R05 - COUGH (2) Hypoxia Code(s): R09.02 - HYPOXEMIA (3) Acute kidney injury Code(s): N17.9 - ACUTE KIDNEY FAILURE, UNSPECIFIED (4) Acute hypoxemic respiratory failure Code(s): J96.01 - ACUTE RESPIRATORY FAILURE WITH HYPOXIA (5) Pneumonia Code(s): J18.9 - PNEUMONIA, UNSPECIFIED ORGANISM (6) Lactate blood increased Code(s): E87.2 - ACIDOSIS Assessment/Plan IMP ACUTE HYPOXEMIC RESPIRATORY FAILURE IMPROVING PNEUMONIA HTN ASHD S/P STENT X5 ACUTE KIDNEY INJURY ELEVATED LACTATE LEVEL NORMAL PLAN INHALED BRONCHODILATORS STEROID TAPER SUPPLEMENTAL O2 MUCOMYST DR RICHARDSON
[2016-09-12 17:50] VITALS: BP 105/60; PULSE 72; TEMP 98.8
== END 2016-09-12 18:00 | DRG 871 ==
LOC: JER 09:03 → SUPCPDRO 09:03 → JERBED 15:28 → J4S 18:20
PROVIDERS: ADMIT Internal Medicine; ATTEND Internal Medicine
PROC: 3E0F7GC Introduction of Other Therapeutic Substance into Respiratory Tract, Via Natural or Artificial Opening (ICD-10-PCS; 2016-08-31)
PROC: 5A09357 Assistance with Respiratory Ventilation, Less than 24 Consecutive Hours, Continuous Positive Airway Pressure (ICD-10-PCS; principal; 2016-09-03)
DX: A41.9 Sepsis, unspecified organism (principal); J18.9 Pneumonia, unspecified organism; J96.01 Acute respiratory failure with hypoxia; N17.9 Acute kidney failure, unspecified; E87.2 Acidosis; I13.0 Hypertensive heart and chronic kidney disease with heart failure and stage 1 through stage 4 chronic kidney disease, or unspecified chronic kidney disease; I50.32 Chronic diastolic (congestive) heart failure; I25.10 Atherosclerotic heart disease of native coronary artery without angina pectoris; Z95.5 Presence of coronary angioplasty implant and graft; D64.9 Anemia, unspecified; K57.90 Diverticulosis of intestine, part unspecified, without perforation or abscess without bleeding; Z96.643 Presence of artificial hip joint, bilateral; R05 Cough; R60.0 Localized edema; N18.9 Chronic kidney disease, unspecified; I95.1 Orthostatic hypotension
CPT/HCPCS: 36415; 36600; 71010-TC; 71250-TC; 71275-TC; 80048; 80053; 81003; 81015; 82550; 82553; 82803; 83605; 83735; 83880; 84443; 84484; 85025; 85027; 85379; 85610; 85730; 86850; 86900; 86901; 87040; 87070; 87086; 87205; 87804; 87899; 93005; 93010; 93306-TC; 93970-TC; 94640; 94660; 94761; 97116-GP; 97161-GP; 99283-25; J1644

== ENCOUNTER 2018-09-20 15:20 | Inpatient (IN) | payer OTHER ==
[2018-09-20 15:32] VITALS: BMI 22.4
--- NOTE | 2018-09-20 16:17 | PDOC ---
Attending Attestation - HPI HPI: 09/20/18 18:34 The patient is a 88 year old female, with a significant PMH of CAD, HTN, stent 5 years ago, anemia and diverticulosis, who presents to the emergency department with one week of cough. The patient states she endorses associated symptoms of SOB and fever. Patient states she experiences chest pain with deep inspiration. She states she currently feels better after nebulizer treatment given today in the ER. The patient denies headache and dizziness. Denies chills, nausea, vomit, diarrhea and constipation.Denies dysuria, frequency, urgency and hematuria. Allergies: NKDA Past surgical history: Appendectomy, cardiac stent and bilateral hip replacement. Social history: No reported PCP: Brooke Documentation prepared by Mukul Robertson, acting as medical coding instructor for Myra Hein MD. - Physicial Exam PE: 09/20/18 18:34 GENERAL: Awake, alert, and fully oriented, in no acute distress HEAD: No signs of trauma EYES: PERRLA, EOMI, sclera anicteric, conjunctiva clear ENT: Auricles normal inspection, hearing grossly normal, nares patent, oropharynx clear without exudates. Moist mucosa NECK: Normal ROM, supple, no lymphadenopathy, JVD, or masses LUNGS: +Diffuse wheezing. No crackles or rhonchi. HEART: Regular rate and rhythm, normal S1 and S2, no murmurs, rubs or gallops ABDOMEN: Soft, nontender, normoactive bowel sounds. No guarding, no rebound. No masses EXTREMITIES: Normal range of motion, no edema. No clubbing or cyanosis. No cords, erythema, or tenderness NEUROLOGICAL: Cranial nerves II through XII grossly intact. Normal speech, normal gait SKIN: Warm, Dry, normal turgor, no rashes or lesions noted. Documentation prepared by Mukul Robertson, acting as medical coding instructor for Myra Hein MD. <Mukul Robertson - Last Filed: 09/20/18 18:34> - Resident Resident Name: Julien Mead - Medical Decision Making 09/20/18 19:11 Pt presents to the ED complaining of generalized malaise with productive cough. Mildly hypoxic on arrival to the ED. + diffuse wheezing. CXR is suggestive of PNA. Will check labs and admit to medicine for PNA. Will start antibiotics and check blood cultures. 09/20/18 19:24 <Myra Hein - Last Filed: 09/20/18 19:25>
[2018-09-20] MEDS ORDERED: ALBUTEROL SO4 2.5/IPRATROPIUM 0.5 INH SOL 3 ML VIAL.NEB. NEB ONE ×2 (17:14→17:41)
--- NOTE | 2018-09-20 17:17 | PDOC ---
History of Present Illness - General Chief Complaint: Shortness of Breath Stated Complaint: COUGHING Time Seen by Provider: 09/20/18 16:17 History Source: Patient, Family Exam Limitations: Dementia - History of Present Illness Initial Comments: 09/20/18 17:42 Patient is 88F with history of CAD s/p stenting, HTN, diverticulosis here today complaining of one week of cough, shortness of breath and fever measured orally to 100.0. Denies asthma, copd, smoking history. Endorses a pain when she inspires deeply. Denies leg swelling. Got flu/pneumonia shot this year. No recent hospital admissions. Per daughter, patient is forgetful at baseline and her mental status has not acutely worsened. PCP: [facility]oke (not affiliated) Past History - Past Medical History Allergies/Adverse Reactions: Allergies Allergy/AdvReac Type Severity Reaction Status Date / Time No Known Allergies Allergy Verified 09/20/18 15:32 Home Medications: Ambulatory Orders Albuterol 2.5/Ipratropium 0.5 [Duoneb -] 1 amp NEB QIDR amp 09/12/16 Aspirin [ASA -] 81 mg PO DAILY #0 tab.chew 09/12/16 Metoprolol Succinate [Toprol XL -] 12.5 mg PO DAILY tab.sr.24h 09/12/16 Nifedipine ER [Procardia XL -] 60 mg PO HS 09/20/18 Anemia: Yes Cardiac Disorders: Yes (Mitral valve stenosis, 1 Stent) COPD: No HTN: Yes Other medical history: not on blood thinners - Surgical History Appendectomy: Yes Cardiac Surgery: Yes (stent) Orthopedic Surgery: Yes (BILATERAL HIP REPLACEMENT) - Immunization History Td Vaccination: Yes Immunization Up to Date: Yes - Suicide/Smoking/Psychosocial Hx Smoking Status: No Smoking History: Never smoked Years of Tobacco Use: 0 Have you smoked in the past 12 months: No Number of Cigarettes Smoked Daily: 0 Cigars Per Day: 0 Information on smoking cessation initiated: No Hx Alcohol Use: No Drug/Substance Use Hx: No Substance Use Type: None Hx Substance Use Treatment: No Review of Systems - Review of Systems Comments:: 09/20/18 17:44 GENERAL/CONSTITUTIONAL: +fever no chills. No weakness. HEAD, EYES, EARS, NOSE AND THROAT: No change in vision. No sore throat. CARDIOVASCULAR: No chest pain +shortness of breath RESPIRATORY: +cough, no wheezing, or hemoptysis. GASTROINTESTINAL: No nausea, vomiting, diarrhea or constipation. GENITOURINARY: No dysuria, frequency, or change in urination. MUSCULOSKELETAL: No joint or muscle swelling or pain. No neck or back pain. SKIN: No rash NEUROLOGIC: No headache, vertigo, loss of consciousness, or change in strength/ sensation. ENDOCRINE: No increased thirst. No abnormal weight change HEMATOLOGIC/LYMPHATIC: No anemia, easy bleeding, or history of blood clots. ALLERGIC/IMMUNOLOGIC: No hives or skin allergy. *Physical Exam - Vital Signs Last Vital Signs Temp Pulse Resp BP Pulse Ox 98.5 F 92 H 19 105/53 L 92 L 09/20/18 15:30 09/20/18 15:30 09/20/18 15:30 09/20/18 15:30 09/20/18 15:30 - Physical Exam Comments: 09/20/18 17:45 GENERAL: Awake, alert, and oriented to self, place, not to year, in no acute distress HEAD: No signs of trauma, normocephalic, atraumatic EYES: PERRLA, EOMI, sclera anicteric, conjunctiva clear ENT: Auricles normal inspection, hearing grossly normal, nares patent, oropharynx clear without exudates. Moist mucosa NECK: Normal ROM, supple, no lymphadenopathy, JVD, or masses LUNGS: No distress, speaks full sentences, wheezes on right side HEART: Regular rate and rhythm, normal S1 and S2, no murmurs, rubs or gallops, peripheral pulses normal and equal bilaterally. ABDOMEN: Soft, nontender, normoactive bowel sounds. No guarding, no rebound. No masses EXTREMITIES: Normal inspection, Normal range of motion, no edema. No clubbing or cyanosis. NEUROLOGICAL: Cranial nerves II through XII grossly intact. Normal speech, no focal sensorimotor deficits SKIN: Warm, Dry, normal turgor, no rashes or lesions noted. Moderate Sedation - Procedure Monitoring Vital Signs: Procedure Monitoring Vital Signs Temperature 98.5 F 09/20/18 15:30 Pulse Rate 92 H 09/20/18 15:30 Respiratory Rate 09/20/18 15:30 Blood Pressure 105/53 L 09/20/18 15:30 O2 Sat by Pulse Oximetry (%) 92 L 09/20/18 15:30 ED Treatment Course - LABORATORY CBC & Chemistry Diagram: 09/20/18 17:30 09/20/18 17:30 - RADIOLOGY Radiology Studies Ordered: Category Date Time Status CHEST X-RAY PORTABLE* [RAD] Stat Radiology 09/20/18 17:01 Ordered Medical Decision Making - Medical Decision Making 09/20/18 17:45 Patient is 88F with history of CAD and diverticulosis here today with shortness of breath, cough, fever. Vitals notable for hypoxia to 92. Started on nasal cannula. DDx includes, but is not limited to: pneumonia, chf, bronchitis. PE considered, but believe symptoms far more consistent with pneumonia. Will treat with duoneb, antibiose based on cxr. 09/20/18 18:41 CXR shows right sided infiltrate. CBC, CMP reassuring. Trop less than threshold, BNP mildly elevated. Will treat as CAP with ceftriaxone/azithro. Hospitalist paged. 09/20/18 19:03 D/W Dr Jane, accepted to m/s. *DC/Admit/Observation/Transfer Diagnosis at time of Disposition: Pneumonia - Discharge Dispostion Condition at time of disposition: Stable Decision to Admit order: Yes - Referrals - Patient Instructions - Post Discharge Activity
[2018-09-20 18:00] LABS: HEMATOCRIT 39.4 % (32.4-45.2); HEMOGLOBIN 12.8 GM/dL (10.7-15.3); MCH 22.2 pg (25.7-33.7); MCHC 32.6 g/dl (32.0-36.0); MEAN CELL VOLUME 68.1 fl (80-96); MEAN PLT VOLUME 8.8 fl (7.5-11.1); PLATELET COUNT 173 K/MM3 (134-434); RBC 5.79 M/mm3 (3.60-5.2); RDW 16.4 % (11.6-15.6); WHITE BLOOD COUNT 4.9 K/mm3 (4.0-10.0)
[2018-09-20 18:18] LABS: INR 0.95 (0.83-1.09); PROTHROMBIN TIME (PATIENT) 11.2 SEC (9.7-13.0)
[2018-09-20 18:31] LABS: ALBUMIN 3.5 g/dl (3.4-5.0); ALK PHOS 88 U/L (45-117); ANION GAP 6 MMOL/L (8-16); BILIRUBIN,TOTAL 0.2 mg/dL (0.2-1); BLOOD UREA NITROGEN 28 mg/dL (7-18); CALCIUM 8.5 mg/dL (8.5-10.1); CHLORIDE 106 mmol/L (98-107); CO2 28 mmol/L (21-32); CREATININE 1.3 mg/dL (0.55-1.3); GLUCOSE,RANDOM 115 mg/dL (74-106); N-TERMINAL BNP 786.7 pg/ml (5-450); POTASSIUM 4.1 mmol/L (3.5-5.1); SGOT/AST 37 U/L (15-37); SGPT/ALT 14 U/L (13-61); SODIUM 140 mmol/L (136-145); TOT PROT 7.4 g/dl (6.4-8.2)
[2018-09-20] MEDS ORDERED: CEFTRIAXONE 1,000 MG in DEXTROSE 5%-WATER - 50 ML IVPB ONE (18:31)
[2018-09-20] MEDS ORDERED: AZITHROMYCIN IVPB 500 MG in DEXTROSE 5%-WATER - 250 ML IVPB ONE (18:31)
[2018-09-20] MEDS ORDERED: CEFTRIAXONE 1 GM/50 ML BAG ONE (18:33)
[2018-09-20] MEDS ORDERED: AZITHROMYCIN IVPB 500 MG/250 ML BAG IVPB ONE (18:33)
--- NOTE | 2018-09-20 19:45 | PN ---
Teaching Attending Note Name of Resident: Alexsandra Barney ATTENDING PHYSICIAN STATEMENT I saw and evaluated the patient. I reviewed the resident's note and discussed the case with the resident. I agree with the resident's findings and plan as documented. SUBJECTIVE: Seen and examined; please refer to resident note for further historical information. Presents with several days of worsening cough; 92% on RA initially , now 96% on RA after tx in the ER but dropped lower again and was put back on O2. She had several days of worsening cough for the past week that is somewhat productive. Hasn't seen any other providers for this, nothing seems to make it better or worse, hasn't noted any PND/orthopnea/swelling. She has no history of COPD, etc. She has previously been hospitalized for PNA in 2017. Hasn't seen her dietetics teacher in some time; she has remote PCI and was apparently offered further CV procedure (unclear if PCI or valvuloplasty) but she did not wish to undergo further invasive procedures. BNP slightly elevated but was higher her last visit. She was seen by Dr. Forrest, Dr. Turner, and Dr. Garvin the last time she was here with R-sided pneumonia with profound hypoxia in 2017. 10 sys ROS done and negative aside from HPI PMH (CAD s/p PCI 5 yrs ago, HTN, Anemia, moderate to severe ), PSH (hip sgy b/ l), Family hx, Social hx reviewed Medications pending reconciliation (procardia, toprol, asa) OBJECTIVE: VS, labs, imaging reviewed NAD, AAO, resting comfortably in bed NC AT EOMI PERRLA RRR s1/2 no mgr Lungs with R-sided rales/wheezes, w/ sym exp NT ND +BS CN2-12 wnl, no fnd Normal mood, appropriate behavior ASSESSMENT AND PLAN: Patient presents with R-sided CAP; she initially desaturated on RA but is now doing well intermittently requiring O2. BUN chronically >19 with no acute difference but would get a point on CURB-65 for age. She is hemodynamically stable and afebrile. We will check an echo to ensure her known moderate to severe is not potnetially playing a role in her SOB as well given the slightly elevated BNP. 1) CAP -Followup cx's; continue to monitor O2 requirement (check ambulatory tomorrow). Symptomatic and visible on CXR and given hypoxia would be reasonable to provide empiric ceftriaxone and azithro while of course considering other items on ddx. -PRN management of cough, etc. PRN O2 to keep >92%. Incentive spirometry. -She has had some severe hypoxia in the past when she has pneumonia and was seen for this by Dr. Turner last time in 2017; was on prednisone at that time. If she worsens would be reasonable to include their service. Should mention that Dr. Garvin saw her last for abx management at that juncture, as well. 2) Elevated BNP with hx mod to severe -2017 echo reviewed; repeating. Avoiding further diuresis or fluids. Can consider consulting her CV in the morning for further guidance. Based on our conversation she seems to indicate that she wants to be managed conservatively as she has refused cardiac procedures in the past. Avoid hypotension. BNP lower than last year. If treating suspected CAP not helpful can go ahead and try to diurese. 3) HTN -Continue home meds 4) Anemia -Trend CBC 5) Hx CAD -No acute issues; reconcile and continue appropriate home medications. 6) Hx CKD
--- NOTE | 2018-09-20 20:22 | HP ---
CHIEF COMPLAINT: cough PCP: dr baer HISTORY OF PRESENT ILLNESS: 88 y/o female with PMH of CAD (s/p stent 5 years ago), HTN, anemia presented to the ED with a one week history of worsening cough for the past week with productive cough . she denies any sick contacts or recent travel. had a low grade fever at home at about 99- she tried taking oTC cough syrup with little relief so she came to the ED. patient states that it hurts when she breathes in and that when she coughs she has pain at her ribs.no recent hospitalizations. she was here back in 2017 also for pneumonia. ER course was notable for: (1)sp02' 92 on room air (2)CXR right sided infiltrate (3)given ceftriaxone and azithroymycin Recent Travel: denies PAST MEDICAL HISTORY: see above PAST SURGICAL HISTORY: stent; B/L his replacement Social History: Smoking:denies Alcohol:denies Drugs: denies Family History: father DM Allergies No Known Allergies Allergy (Verified 09/20/18 15:32) HOME MEDICATIONS: Home Medications Medication Instructions Recorded Albuterol 2.5/Ipratropium 0.5 1 amp NEB QIDR amp 09/12/16 [Duoneb -] Aspirin [ASA -] 81 mg PO DAILY #0 tab.chew 09/12/16 Metoprolol Succinate [Toprol XL -] 12.5 mg PO DAILY tab.sr.24h 09/12/16 Nifedipine ER [Procardia XL -] 60 mg PO HS 09/20/18 REVIEW OF SYSTEMS CONSTITUTIONAL: Absent: fever, chills, diaphoresis, generalized weakness, malaise, loss of appetite, weight change HEENT: Absent: rhinorrhea, nasal congestion, throat pain, throat swelling, difficulty swallowing, mouth swelling, ear pain, eye pain, visual changes CARDIOVASCULAR: Absent: chest pain, syncope, palpitations, irregular heart rate, lightheadedness , peripheral edema RESPIRATORY: Present:cough, shortness of breath Absent: , dyspnea with exertion, orthopnea, wheezing, stridor, hemoptysis GASTROINTESTINAL: Absent: abdominal pain, abdominal distension, nausea, vomiting, diarrhea, constipation, melena, hematochezia GENITOURINARY: Absent: dysuria, frequency, urgency, hesitancy, hematuria, flank pain, genital pain MUSCULOSKELETAL: Absent: myalgia, arthralgia, joint swelling, back pain, neck pain SKIN: Absent: rash, itching, pallor HEMATOLOGIC/IMMUNOLOGIC: Absent: easy bleeding, easy bruising, lymphadenopathy, frequent infections ENDOCRINE: Absent: unexplained weight gain, unexplained weight loss, heat intolerance, cold intolerance NEUROLOGIC: Absent: headache, focal weakness or paresthesias, dizziness, unsteady gait, seizure, mental status changes, bladder or bowel incontinence PSYCHIATRIC: Absent: anxiety, depression, suicidal or homicidal ideation, hallucinations. PHYSICAL EXAMINATION Vital Signs - 24 hr 09/20/18 09/20/18 15:30 17:33 Temperature 98.5 F 98.6 F Pulse Rate 92 H Pulse Rate [ 84 Left Apical] Respiratory 19 16 Rate Blood Pressure 105/53 L Blood Pressure 101/53 L [Left Arm] O2 Sat by Pulse 92 L 97 Oximetry (%) GENERAL: Awake, alert, and fully oriented, in no acute distress.. EYES: EOMI; PEERLA: no sclral icteus NECK: no JVD; no lymphadenopathy LUNGS: wheezes on the right side HEART: Regular rate and rhythm, normal S1 and S2 without murmur, rub or gallop. ABDOMEN: Soft, nontender, not distended, normoactive bowel sounds, no guarding, no rebound, no masses. No hepatomegaly or splenomegaly. MUSCULOSKELETAL: Normal range of motion at all joints. No bony deformities or tenderness. No CVA tenderness. EXTREMITIES; warm; well-perfused no clubbing/cyanosis or edema PSYCHIATRIC: Cooperative. Good eye contact. Appropriate mood and affect. SKIN: Warm, dry, normal turgor, no rashes or lesions noted, normal capillary refill. Laboratory Results - last 24 hr 09/20/18 09/20/18 09/20/18 17:30 17:30 17:30 WBC 4.9 RBC 5.79 H Hgb 12.8 Hct 39.4 MCV 68.1 L MCH 22.2 L MCHC 32.6 RDW 16.4 H Plt Count 173 MPV 8.8 PT with INR 11.20 INR 0.95 Sodium 140 Potassium 4.1 Chloride 106 Carbon Dioxide 28 Anion Gap 6 L BUN 28 H Creatinine 1.3 Creat Clearance w eGFR 38.66 Random Glucose 115 H Calcium 8.5 Total Bilirubin 0.2 AST 37 ALT 14 Alkaline Phosphatase 88 Creatine Kinase 111 Troponin I 0.03 B-Natriuretic Peptide 786.7 H Total Protein 7.4 Albumin 3.5 Influenza A (Rapid) Influenza B (Rapid) 09/20/18 19:30 WBC RBC Hgb Hct MCV MCH MCHC RDW Plt Count MPV PT with INR INR Sodium Potassium Chloride Carbon Dioxide Anion Gap BUN Creatinine Creat Clearance w eGFR Random Glucose Calcium Total Bilirubin AST ALT Alkaline Phosphatase Creatine Kinase Troponin I B-Natriuretic Peptide Total Protein Albumin Influenza A (Rapid) Negative Influenza B (Rapid) Negative ASSESSMENT/PLAN: 88 y/o female with PMH of CAD (s/p stent); HTN, anemia,who presented with a one week history of a worsening cough found to have a right sided pneumonia #Pneumonia CURB 65- 2 points -c/w ceftriaxone and azithromycin -incentive spirometry -respiratory viral panel PCR sent -echo ordered -o2 when needed -monitor vitals and respiratory status #HTN -holding home meds given patients slightly low BP on arrival meds have not been reconciled #CAD ASA 81 daily F/E/N not on fluids monitor electrolytes sodium controlled diet DVT PPX: heparin sq dispo: med-surg Problem List - Problem (1) Atrial fibrillation with controlled ventricular rate Code(s): I48.91 - UNSPECIFIED ATRIAL FIBRILLATION (2) Chronic kidney disease Code(s): N18.9 - CHRONIC KIDNEY DISEASE, UNSPECIFIED Qualifiers: Chronic kidney disease stage: stage 2 (mild) Qualified Code(s): N18.2 - Chronic kidney disease, stage 2 (mild) (3) Diastolic dysfunction Code(s): I51.89 - OTHER ILL-DEFINED HEART DISEASES Visit type - Emergency Visit Emergency Visit: Yes ED Registration Date: 09/20/18 Care time: The patient presented to the Emergency Department on the above date and was hospitalized for further evaluation of their emergent condition. - New Patient This patient is new to me today: No - Critical Care Critical Care patient: No
[2018-09-21] MEDS ORDERED: HEPARIN NA (PORCINE) 5,000 UNITS/ML 1ML VIAL SQ SCH (06:00)
[2018-09-21 06:33] LABS: BASO % 0.9 % (0-2.0); EOS % 3.5 % (0-4.5); HEMATOCRIT 38.2 % (32.4-45.2); HEMOGLOBIN 12.1 GM/dL (10.7-15.3); LYMPH % 18.9 % (8-40); MCH 21.4 pg (25.7-33.7); MCHC 31.7 g/dl (32.0-36.0); MEAN CELL VOLUME 67.5 fl (80-96); MEAN PLT VOLUME 8.7 fl (7.5-11.1); MONO % 10.9 % (3.8-10.2); NEUT % 65.8 % (42.8-82.8); PLATELET COUNT 158 K/MM3 (134-434); RBC 5.66 M/mm3 (3.60-5.2); RDW 15.8 % (11.6-15.6); WHITE BLOOD COUNT 4.7 K/mm3 (4.0-10.0)
[2018-09-21 07:34] LABS: ALBUMIN 3.2 g/dl (3.4-5.0); ALK PHOS 83 U/L (45-117); ANION GAP 6 MMOL/L (8-16); BILIRUBIN,TOTAL 0.2 mg/dL (0.2-1); BLOOD UREA NITROGEN 24 mg/dL (7-18); CALCIUM 8.5 mg/dL (8.5-10.1); CHLORIDE 106 mmol/L (98-107); CO2 27 mmol/L (21-32); CREATININE 1.1 mg/dL (0.55-1.3); GLUCOSE,RANDOM 111 mg/dL (74-106); MAGNESIUM 2.3 mg/dL (1.8-2.4); POTASSIUM 3.4 mmol/L (3.5-5.1); SGOT/AST 13 U/L (15-37); SGPT/ALT 26 U/L (13-61); SODIUM 140 mmol/L (136-145); TOT PROT 7.5 g/dl (6.4-8.2)
[2018-09-21] MEDS ORDERED: POTASSIUM CHLORIDE TABS 20 MEQ TABLET.ER (FP) PO ONE (08:04)
[2018-09-21] MEDS: ALBUTEROL SO4 2.5/IPRATROPIUM 0.5 INH SOL 3 ML VIAL.NEB. NEB PRN ×2 (09:00→11:38)
[2018-09-21] MEDS ORDERED: cefTRIAXone SODIUM 1 GM VIAL ONE (09:15)
[2018-09-21] MEDS ORDERED: DEXTROSE 5%-WATER - 50 ML IVPB ONE (09:15)
[2018-09-21] MEDS ORDERED: PT OWN MED DRAWER 7, Y5N ONE (09:15)
[2018-09-21] MEDS ORDERED: ASPIRIN 81 MG CHEWABLE TABLETS PO SCH (10:00)
[2018-09-21] MEDS ORDERED: CEFTRIAXONE 1 GM in DEXTROSE 5%-WATER - 50 ML IVPB SCH (10:00)
[2018-09-21] MEDS ORDERED: AZITHROMYCIN IVPB 250 MG in DEXTROSE 5%-WATER - 250 ML IVPB SCH (10:00)
[2018-09-21 10:36] LABS: ANISOCYTOSIS 1+; MACROCYTOSIS 0; PLATELET ESTIMATE DECREASED
--- NOTE | 2018-09-21 11:40 | PN ---
Progress Note (short form) - Note Progress Note: Subjective: she denies any SOB, has cough , with sputum production x 1 week. lives alone with aid, uses a walker. denies fever Objective: Vital Signs: Last Vital Signs Temp Pulse Resp BP Pulse Ox 100.2 F H 94 H 20 135/77 95 09/21/18 08:37 09/21/18 08:37 09/21/18 08:37 09/21/18 08:37 09/21/18 09:00 Laboratory Results - last 24 hr 09/20/18 09/20/18 09/20/18 17:30 17:30 17:30 WBC 4.9 RBC 5.79 H Hgb 12.8 Hct 39.4 MCV 68.1 L MCH 22.2 L MCHC 32.6 RDW 16.4 H Plt Count 173 MPV 8.8 Absolute Neuts (auto) Neutrophils % Lymphocytes % Monocytes % Eosinophils % Basophils % Nucleated RBC % PT with INR 11.20 INR 0.95 Sodium 140 Potassium 4.1 Chloride 106 Carbon Dioxide 28 Anion Gap 6 L BUN 28 H Creatinine 1.3 Creat Clearance w eGFR 38.66 Random Glucose 115 H Calcium 8.5 Phosphorus Magnesium Total Bilirubin 0.2 AST 37 ALT 14 Alkaline Phosphatase 88 Creatine Kinase 111 Troponin I 0.03 B-Natriuretic Peptide 786.7 H Total Protein 7.4 Albumin 3.5 Influenza A (Rapid) Influenza B (Rapid) 09/20/18 09/21/18 09/21/18 19:30 05:15 05:15 WBC 4.7 RBC 5.66 H Hgb 12.1 Hct 38.2 MCV 67.5 L MCH 21.4 L MCHC 31.7 L RDW 15.8 H Plt Count 158 MPV 8.7 Absolute Neuts (auto) 3.1 Neutrophils % 65.8 Lymphocytes % 18.9 D Monocytes % 10.9 H D Eosinophils % 3.5 D Basophils % 0.9 D Nucleated RBC % 0 PT with INR INR Sodium 140 Potassium 3.4 L Chloride 106 Carbon Dioxide 27 Anion Gap 6 L BUN 24 H Creatinine 1.1 Creat Clearance w eGFR 46.88 Random Glucose 111 H Calcium 8.5 Phosphorus 4.0 Magnesium 2.3 Total Bilirubin 0.2 AST 13 L ALT 26 Alkaline Phosphatase 83 Creatine Kinase Troponin I B-Natriuretic Peptide Total Protein 7.5 Albumin 3.2 L Influenza A (Rapid) Negative Influenza B (Rapid) Negative Physical Exam: NAD CV: RRR, 3/6 SM at RUSB and LLSB . No JVD Lungs : bibasilar crackles, scattered wheezes Ext : no edema or erythema Abd: soft, NT, ND , NL BS Imaging: Cxray reviewed. report and image Assessment/Plan: 88 y/o lady with H/o Severe , CAD , s/p PCI, HTN, h/o PNA with resp failure in 2017 who presented with cough x 1 week 1- Cough: possible b/l PNA . has fever today . cxray with no obvious infiltrate. - order a chest CT scan - order urine legionella - cont ceftriaxone and azithro . QTC 444 - order sputum cx - order blood cx - Nebs treatment 2- H/o HTN: BP nl . - resume BB - will resume nifedipine if BP elevated 3- Severe : echo from 2017 reviewed. severe , mild TR, mild AR. nl EF . small pericardial effusion . - she looks euvolemic to me. crackles and wheezes in lungs might be due to PNA. - EKG reviewed. I am not able to determine rhythm. baudilio repeat EKG - Card eval for accurate assessment of her Volume status and advise 4- Microcytosis : check iron studies 5- Dispo : [facility] Tried to call daughter, message left Visit type - Emergency Visit Emergency Visit: Yes ED Registration Date: 09/20/18 Care time: The patient presented to the Emergency Department on the above date and was hospitalized for further evaluation of their emergent condition. - New Patient This patient is new to me today: Yes Date on this admission: 09/21/18 - Critical Care Critical Care patient: No
[2018-09-21] MEDS ORDERED: metoPROLOL SUCCINATE 25 MG TAB.SR.24H (FP) PO SCH (11:45)
--- NOTE | 2018-09-21 11:51 | EKG ---
Test Reason : Blood Pressure : / mmHG Vent. Rate : 074 BPM Atrial Rate : 055 BPM P-R Int : 000 ms QRS Dur : 076 ms QT Int : 400 ms P-R-T Axes : 000 -21 060 degrees QTc Int : 444 ms ATRIAL FIBRILLATION MINIMAL VOLTAGE CRITERIA FOR LVH, MAY BE NORMAL VARIANT SEPTAL INFARCT (CITED ON OR BEFORE 07-MAR-2016) ABNORMAL ECG WHEN COMPARED WITH ECG OF 31-AUG-2016 10:03, ATRIAL FIBRILLATION HAS REPLACED JUNCTIONAL RHYTHM QUESTIONABLE CHANGE IN INITIAL FORCES OF ANTERIOR LEADS NONSPECIFIC T WAVE ABNORMALITY NO LONGER EVIDENT IN INFERIOR LEADS T WAVE INVERSION NO LONGER EVIDENT IN LATERAL LEADS Confirmed by IVONNE ESCOBEDO, ARAVIND ([id number]) on 09/21/2018 11:50:57 AM Referred By: Confirmed By:ARAVIND CORONADO MD
--- NOTE | 2018-09-21 13:07 | CON.CARD ---
Consult Consult Specialty:: Cardiology Referred by:: Hospitalist Medicine Reason for Consultation:: CAD s/p stent, afib - History of Present Illness Chief Complaint: Cough History of Present Illness: 88 yo female h/o CAD s/p PCI, HTN, anemia, mod-severe , previous RML PNA presented with several days of worsening productive cough, post-tussive atypical chest discomfort, hypoxia now on NC. She has not seen cardiology in some time, declined invasive procedures in past. Found to have rate-controlled afib, unknown duration. She denies angina, dyspnea, orthopnea, PND, LE edema, palpitations, near or true syncope. 10 sys ROS done and negative aside from HPI PMH (CAD s/p PCI 5 yrs ago, HTN, Anemia, moderate to severe ), PSH (hip sgy b/ l), Family hx, Social hx reviewed - Past Medical History Cardio/Vascular: Yes: CAD, HTN, Hyperlipdemia ...: No - Past Surgical History Past Surgical History: Yes: Appendectomy - Alcohol/Substance Use Hx Alcohol Use: No - Smoking History Smoking history: Never smoked Have you smoked in the past 12 months: No Aproximately how many cigarettes per day: 0 Home Medications - Allergies Allergies/Adverse Reactions: Allergies Allergy/AdvReac Type Severity Reaction Status Date / Time No Known Allergies Allergy Verified 09/20/18 15:32 - Home Medications Home Medications: Ambulatory Orders Albuterol 2.5/Ipratropium 0.5 [Duoneb -] 1 amp NEB QIDR amp 09/12/16 Aspirin [ASA -] 81 mg PO DAILY #0 tab.chew 09/12/16 Metoprolol Succinate [Toprol XL -] 12.5 mg PO DAILY tab.sr.24h 09/12/16 Nifedipine ER [Procardia XL -] 60 mg PO HS 09/20/18 Review of Systems - Review of Systems Respiratory: reports: Cough Vital Signs: Vital Signs Temperature 100.2 F H 09/21/18 08:37 Pulse Rate 94 H 09/21/18 08:37 Respiratory Rate 20 09/21/18 08:37 Blood Pressure 135/77 09/21/18 08:37 O2 Sat by Pulse Oximetry (%) 95 09/21/18 09:00 Constitutional: Yes: No Distress, Calm Neck: Yes: Supple Respiratory: Yes: Regular, Cough, Diminished, On Nasal O2 Gastrointestinal: Yes: Normal Bowel Sounds, Soft Cardiovascular: Yes: Pulse Irregular JVD: No Carotid Bruit: No Heart Sounds: Yes: S1, S2 Murmur: Yes: Systolic Murmur, Grade 2 Edema: No - Other Data Labs, Other Data: CBC, BMP 09/21/18 05:15 09/21/18 05:15 INR, PTT INR 0.95 (0.83-1.09) 09/20/18 17:30 Troponin, BNP 09/20/18 17:30 Troponin I 0.03 B-Natriuretic Peptide 786.7 H Troponin, BNP 09/20/18 17:30 Troponin I 0.03 B-Natriuretic Peptide 786.7 H Afib @ 74 new since previous 08/31/2016 Prior Cardiac Procedures: PTCA with Stent Ejection Fraction %: LVEF > or = 40 % Imaging - Results Chest X-ray: Report Reviewed (NAD) Problem List - Problems (1) Coronary artery disease Code(s): I25.10 - ATHSCL HEART DISEASE OF [place] CORONARY ARTERY W/O ANG PCTRS Qualifiers: Coronary Disease-Associated Artery/Lesion type: [place] artery [place] vs. transplanted heart: [place] heart Associated angina: without angina Qualified Code(s): I25.10 - Atherosclerotic heart disease of [place] coronary artery without angina pectoris (2) Stented coronary artery Code(s): Z95.5 - PRESENCE OF CORONARY ANGIOPLASTY IMPLANT AND GRAFT (3) Atrial fibrillation with controlled ventricular rate Code(s): I48.91 - UNSPECIFIED ATRIAL FIBRILLATION (4) Pneumonia Code(s): J18.9 - PNEUMONIA, UNSPECIFIED ORGANISM (5) Aortic stenosis Code(s): I35.0 - NONRHEUMATIC AORTIC (VALVE) STENOSIS Qualifiers: Cardiac valve disease etiology: nonrheumatic Qualified Code(s): I35.0 - Nonrheumatic aortic (valve) stenosis (6) Cough Code(s): R05 - COUGH (7) HTN (hypertension) Code(s): I10 - ESSENTIAL (PRIMARY) HYPERTENSION Qualifiers: Hypertension type: essential hypertension Qualified Code(s): I10 - Essential (primary) hypertension (8) Diastolic dysfunction Code(s): I51.89 - OTHER ILL-DEFINED HEART DISEASES (9) Chronic kidney disease Code(s): N18.9 - CHRONIC KIDNEY DISEASE, UNSPECIFIED Qualifiers: Chronic kidney disease stage: stage 2 (mild) Qualified Code(s): N18.2 - Chronic kidney disease, stage 2 (mild) Assessment/Plan 09/01/2016 Mild LAE, normal LV fxn, mild MR, TR, AR, mod-severe , MG 24.1 mmHg , ARIANNA 0.85 cm^2 1. Newly diagnosed atrial fibrillation [id number] 2. CAP 3. CAD s/p PCI (stent), angina pectoris 4. HTN 5. Diastolic dysfunction with mod-severe , euvolemic 6. CKD P:1. Empiric abx per C&S, f/u chest CT, BD, O2 as needed, replete K 2. F/u repeat echo to assess severity of , repeat ECG to assess afib rate- control, check TSH, lipid panel and Ha1c 3. Toprol XL 12.5 qd, change ASA and sc heparin to Eliquis 2.5 bid given elevated [id number] risk and stable CAD 4. Thank you for consultatuve opportunity
[2018-09-21] MEDS ORDERED: ALBUTEROL SO4 2.5/IPRATROPIUM 0.5 INH SOL 3 ML VIAL.NEB. NEB SCH (14:00)
[2018-09-21] MEDS: ALBUTEROL SO4 2.5/IPRATROPIUM 0.5 INH SOL 3 ML VIAL.NEB. NEB SCH (20:19)
[2018-09-21] MEDS ORDERED: APIXABAN 2.5 MG TABLET PO SCH (22:00)
[2018-09-22] MEDS ORDERED: NIFEdipine E.R 60 MG TABLET (UD) PO ONE (02:53)
[2018-09-22] MEDS: ALBUTEROL SO4 2.5/IPRATROPIUM 0.5 INH SOL 3 ML VIAL.NEB. NEB PRN ×2 (03:11→06:12)
[2018-09-22] MEDS ORDERED: ACETAMINOPHEN 325 MG TABLET (FP) PO ONE (06:17)
[2018-09-22] MEDS ORDERED: FUROSEMIDE 40 MG/4 ML INJECTABLE VIAL IVPUSH ONE (06:54)
[2018-09-22 07:27] LABS: BASO % 1.1 % (0-2.0); EOS % 2.6 % (0-4.5); HEMOGLOBIN 12.9 GM/dL (10.7-15.3); LYMPH % 23.6 % (8-40); MCH 21.6 pg (25.7-33.7); MCHC 31.6 g/dl (32.0-36.0); MEAN CELL VOLUME 68.4 fl (80-96); MEAN PLT VOLUME 8.9 fl (7.5-11.1); MONO % 11.1 % (3.8-10.2); NEUT % 61.6 % (42.8-82.8); PLATELET COUNT 155 K/MM3 (134-434); RBC 5.99 M/mm3 (3.60-5.2); RDW 16.1 % (11.6-15.6); WHITE BLOOD COUNT 4.1 K/mm3 (4.0-10.0)
[2018-09-22 07:50] LABS: ANION GAP 7 MMOL/L (8-16); BLOOD UREA NITROGEN 16 mg/dL (7-18); CALCIUM 8.4 mg/dL (8.5-10.1); CHLORIDE 103 mmol/L (98-107); CO2 29 mmol/L (21-32); CREATININE 1.1 mg/dL (0.55-1.3); GLUCOSE,RANDOM 103 mg/dL (74-106); MAGNESIUM 2.3 mg/dL (1.8-2.4); PHOSPHOROUS 2.6 mg/dL (2.5-4.9); POTASSIUM 3.8 mmol/L (3.5-5.1); SODIUM 139 mmol/L (136-145)
--- NOTE | 2018-09-22 08:11 | PN ---
Physical Exam: SUBJECTIVE: Patient seen and examined at bedside- early ths AM patient started to destaurate to the 80s and was placed on venti mask then subsequently on non- rebreather she is now also spiking fevers. gave one dose of lasix this AM OBJECTIVE: Vital Signs Period Temp Pulse Resp BP Sys/Patel Pulse Ox Last 24 Hr 98.2 F-101.7 F 86-102 20-20 116-160/63-100 93-98 GENERAL: The patient is somnolent; on nonrebreather in distress EYES: PEERLA EOMI no scleral icterus ENT: Ears normal, nares patent, oropharynx clear without exudates, moist mucous membranes. LUNGS: crackles B/L with slight wheezing- on non-rebreather using accessory muscles HEART: Regular rate and rhythm, S1, S2 without murmur, rub or gallop. ABDOMEN: Soft, nontender, nondistended, normoactive bowel sounds, no guarding, no rebound, no hepatosplenomegaly, no masses. EXTREMITIES: 2+ pulses, warm, well-perfused, no edema. PSYCH: Normal mood, normal affect. SKIN: Warm, dry, normal turgor, no rashes or lesions noted Laboratory Results - last 24 hr 09/21/18 09/22/18 09/22/18 05:15 05:50 05:50 WBC 4.1 RBC 5.99 H Hgb 12.9 Hct 41.0 MCV 68.4 L MCH 21.6 L MCHC 31.6 L RDW 16.1 H Plt Count 155 MPV 8.9 Absolute Neuts (auto) 2.5 Neutrophils % 61.6 Lymphocytes % 23.6 D Monocytes % 11.1 H Eosinophils % 2.6 Basophils % 1.1 Nucleated RBC % 0 Platelet Estimate Decreased Polychromasia 0 Poikilocytosis 0 Anisocytosis 1+ Microcytosis 1+ Macrocytosis 0 Sodium 139 Potassium 3.8 Chloride 103 Carbon Dioxide 29 Anion Gap 7 L BUN 16 Creatinine 1.1 Creat Clearance w eGFR 46.88 Random Glucose 103 Calcium 8.4 L Phosphorus 2.6 Magnesium 2.3 Active Medications Generic Name Dose Route Start Last Admin Trade Name Freq PRN Reason Stop Dose Admin Albuterol/Ipratropium 1 amp 09/21/18 19:30 09/22/18 03:11 Duoneb - NEB 1 amp Q6H PRN Administration SHORTNESS OF BREATH Albuterol/Ipratropium 1 amp 09/21/18 20:00 09/21/18 20:19 Duoneb - NEB Not Given RTID [facility] Azithromycin 250 mg/ Dextrose 250 mls @ 250 mls/hr 09/22/18 10:00 IVPB DAILY [facility] Ceftriaxone Sodium 1 gm/ 50 mls @ 100 mls/hr 09/22/18 10:00 Dextrose IVPB DAILY [facility] Protocol Metoprolol Succinate 12.5 mg 09/22/18 10:00 Toprol Xl - PO DAILY [facility] ASSESSMENT/PLAN: 88 y/o female with PMH of CAD (s/p stent); HTN, anemia,who presented with a one week history of a worsening cough found to have a right sided pneumonia #Pneumonia on nonrebreather currently since patient desaturates on ventimask CURB 65- 2 points -c/w ceftriaxone and azithromycin day 3 -Pulm consult appreciated: started patient on solumedrol 40Q8H -incentive spirometry -IGM mycoplasma pending -echo ordered -o2 when needed -monitor vitals and respiratory status #HTN -on toprol 12.5 daily -on nifedipine 60 #AFIB new onset Afib - cardio recommending eliquis 2.5 BID however patient has had histoyr of UGIB on plavix -daughter speaking to mothers offset machine operator regarding AC -currently now in sinus -tele monitor #CAD ASA 81 daily F/E/N not on fluids monitor electrolytes sodium controlled diet DVT PPX: heparin sq Problem List - Problems (1) Atrial fibrillation with controlled ventricular rate Code(s): I48.91 - UNSPECIFIED ATRIAL FIBRILLATION (2) Chronic kidney disease Code(s): N18.9 - CHRONIC KIDNEY DISEASE, UNSPECIFIED Qualifiers: Chronic kidney disease stage: stage 2 (mild) Qualified Code(s): N18.2 - Chronic kidney disease, stage 2 (mild) (3) Diastolic dysfunction Code(s): I51.89 - OTHER ILL-DEFINED HEART DISEASES Visit type - Emergency Visit Emergency Visit: Yes ED Registration Date: 09/20/18 Care time: The patient presented to the Emergency Department on the above date and was hospitalized for further evaluation of their emergent condition. - New Patient This patient is new to me today: No - Critical Care Critical Care patient: No
[2018-09-22] MEDS: ALBUTEROL SO4 2.5/IPRATROPIUM 0.5 INH SOL 3 ML VIAL.NEB. NEB SCH ×3 (08:24→20:54)
[2018-09-22 08:25] LABS: ARTERIAL BLD GAS O2 SATURATION 99.1 % (90-98.9); ARTERIAL BLOOD GAS BASE EXCESS 1.4 meq/l (-2-2); ARTERIAL BLOOD GAS PCO2 46.2 mmHg (35-45); ARTERIAL BLOOD GAS pH 7.38 (7.35-7.45)
[2018-09-22 08:26] LABS: ALLENS TEST POSITIVE
[2018-09-22] MEDS ORDERED: DEXTROSE 5%-WATER - 50 ML IVPB ONE (09:25)
[2018-09-22] MEDS ORDERED: cefTRIAXone SODIUM 1 GM VIAL ONE (09:25)
[2018-09-22] MEDS: CEFTRIAXONE 1 GM in DEXTROSE 5%-WATER - 50 ML IVPB SCH (09:39)
[2018-09-22] MEDS: AZITHROMYCIN IVPB 250 MG in DEXTROSE 5%-WATER - 250 ML IVPB SCH (09:39)
[2018-09-22] MEDS: metoPROLOL SUCCINATE 25 MG TAB.SR.24H (FP) PO SCH (09:40)
[2018-09-22] MEDS ORDERED: NIFEdipine E.R 60 MG TABLET (UD) PO SCH (10:00)
--- NOTE | 2018-09-22 10:38 | PN ---
Progress Note, Physician History of Present Illness: Undergoing echo on 40% VM. Febrile. Now in SR. - Current Medication List Current Medications: Active Medications Albuterol/Ipratropium (Duoneb -) 1 amp NEB Q6H PRN PRN Reason: SHORTNESS OF BREATH Last Admin: 09/22/18 06:12 Dose: 1 amp Albuterol/Ipratropium (Duoneb -) 1 amp NEB RTID [facility] Last Admin: 09/22/18 08:24 Dose: 1 amp Azithromycin 250 mg/ Dextrose 250 mls @ 250 mls/hr IVPB DAILY [facility] Last Admin: 09/22/18 09:39 Dose: 250 mls/hr Ceftriaxone Sodium 1 gm/ (Dextrose) 50 mls @ 100 mls/hr IVPB DAILY [facility]; Protocol Last Admin: 09/22/18 09:39 Dose: 100 mls/hr Metoprolol Succinate (Toprol Xl -) 12.5 mg PO DAILY [facility] Last Admin: 09/22/18 09:40 Dose: 12.5 mg - Objective Vital Signs: Vital Signs Temperature 101.7 F H 09/22/18 06:00 Pulse Rate 100 H 09/22/18 06:00 Respiratory Rate 20 09/22/18 06:00 Blood Pressure 116/63 09/22/18 06:00 O2 Sat by Pulse Oximetry (%) 93 L 09/22/18 02:11 Constitutional: Yes: No Distress, Calm Neck: Yes: Supple Cardiovascular: Yes: Regular Rate and Rhythm, Murmur (2/6 SM) Respiratory: Yes: Regular, Diminished, On Venti-Mask Gastrointestinal: Yes: Normal Bowel Sounds, Soft Edema: No Labs: CBC, BMP 09/22/18 05:50 09/22/18 05:50 INR, PTT INR 0.95 (0.83-1.09) 09/20/18 17:30 - ....Imaging EKG: Report Reviewed (Tele: PAF->SR ECG: NSR PAC c/w previous no longer in afib) Problem List - Problems (1) Coronary artery disease Code(s): I25.10 - ATHSCL HEART DISEASE OF [place] CORONARY ARTERY W/O ANG PCTRS Qualifiers: Coronary Disease-Associated Artery/Lesion type: [place] artery [place] vs. transplanted heart: [place] heart Associated angina: without angina Qualified Code(s): I25.10 - Atherosclerotic heart disease of [place] coronary artery without angina pectoris (2) Stented coronary artery Code(s): Z95.5 - PRESENCE OF CORONARY ANGIOPLASTY IMPLANT AND GRAFT (3) Atrial fibrillation with controlled ventricular rate Code(s): I48.91 - UNSPECIFIED ATRIAL FIBRILLATION (4) Pneumonia Code(s): J18.9 - PNEUMONIA, UNSPECIFIED ORGANISM (5) Aortic stenosis Code(s): I35.0 - NONRHEUMATIC AORTIC (VALVE) STENOSIS Qualifiers: Cardiac valve disease etiology: nonrheumatic Qualified Code(s): I35.0 - Nonrheumatic aortic (valve) stenosis (6) Cough Code(s): R05 - COUGH (7) HTN (hypertension) Code(s): I10 - ESSENTIAL (PRIMARY) HYPERTENSION Qualifiers: Hypertension type: essential hypertension Qualified Code(s): I10 - Essential (primary) hypertension (8) Diastolic dysfunction Code(s): I51.89 - OTHER ILL-DEFINED HEART DISEASES (9) Chronic kidney disease Code(s): N18.9 - CHRONIC KIDNEY DISEASE, UNSPECIFIED Qualifiers: Chronic kidney disease stage: stage 2 (mild) Qualified Code(s): N18.2 - Chronic kidney disease, stage 2 (mild) Assessment/Plan 09/01/2016 Mild LAE, normal LV fxn, mild MR, TR, AR, mod-severe , MG 24.1 mmHg , ARIANNA 0.85 cm^2 1. Newly diagnosed paroxysmal atrial fibrillation-> SR [id number] 2. Right-sided CAP with fever 3. CAD s/p PCI (stent), angina pectoris 4. HTN 5. Diastolic dysfunction with mod-severe , euvolemic 6. CKD 7. Hyperlipidemia P:1. Empiric abx per C&S, repeat cultures, f/u chest CT, BD, O2 as needed 2. F/u repeat echo to assess severity of 3. Toprol XL 12.5 qd, resume Eliquis 2.5 bid given elevated [id number] risk and stable CAD, start Lipitor 20 qhs
--- NOTE | 2018-09-22 10:41 | EKG ---
Test Reason : Blood Pressure : / mmHG Vent. Rate : 099 BPM Atrial Rate : 099 BPM P-R Int : 196 ms QRS Dur : 082 ms QT Int : 356 ms P-R-T Axes : 082 -24 080 degrees QTc Int : 456 ms SINUS RHYTHM WITH PREMATURE ATRIAL COMPLEXES MODERATE VOLTAGE CRITERIA FOR LVH, MAY BE NORMAL VARIANT CANNOT RULE OUT SEPTAL INFARCT (CITED ON OR BEFORE 07-MAR-2016) ABNORMAL ECG WHEN COMPARED WITH ECG OF 20-SEP-2018 16:31, SINUS RHYTHM HAS REPLACED ATRIAL FIBRILLATION Confirmed by GEORGE ESCOBEDO, JACQUELINE ([id number]) on 09/22/2018 10:41:28 AM Referred By: David RUEDA Confirmed By:JACQUELINE VAZQUEZ MD
--- NOTE | 2018-09-22 12:11 | PN ---
Teaching Attending Note Name of Resident: Alexsandra Barney ATTENDING PHYSICIAN STATEMENT I saw and evaluated the patient. I reviewed the resident's note and discussed the case with the resident. I agree with the resident's findings and plan as documented. SUBJECTIVE: Events over night noted for hypertension and was given nifedipine 60 x 1 .placed on non-rebreather fever. She denies SOB, has pleuritic CP with cough . no diarrhea . was given one dose of lasx this am OBJECTIVE: NAD , lethargic but arousable and cooperative and answer questions CV: RRR, 3/6 SM at RUSB and LLSB . No JVD Lungs: B/L crackles Ext : no edema or erythema Abd: soft, NT, ND , NL BS Imaging: Cxray reviewed. report and image Assessment/Plan: 88 y/o lady with H/o Severe , CAD , s/p PCI, diverticular bleed, HTN, h/o PNA with resp failure in 2017 who presented with cough x 1 week 1- Possible b/l PNA .CT scan on my review with b/l pleural effusions and ground glass appearance of the parancyma. - cont to be hypoxic and need supplemental O2 - Urine legionella neg. will check mycoplasma IgM Abs - cont ceftriaxone and azithro for now ( day 2) - follow blood cx - follow sputum cx - check lactic acid . - ABg obtained : change Non rebreather to venti mask - will consult pulm , to decide if steroids are indicated 2- New onset A fib: - cont toprol . can increase if needed - Hold eliquis, due to h/o sever GI bleed requiring transfusion. Daughter will d /w Out Pt senior teradata developer before deciding on AC. she understands the risk of stroke off Ac and the risk of bleed with AC. 3-HTN: received nifedipine this am. BP in 90s this am - cont BB - monitor BP, will decide on Nifedipine later depending on BP 4- Severe : - Echo pending - Volume status is likely to be euvolemia. avoid hypovolemia. will re-discuss with cardiology 5- Microcytosis : iron studies pending 6- Dispo : [facility] will call daughter today.
--- NOTE | 2018-09-22 12:59 | CON.PULM ---
Consult Consult Specialty:: PULMONARY Referred by:: Dr Landeros Reason for Consultation:: pneumonia - History of Present Illness Chief Complaint: shortness of breath History of Present Illness: 88yo female with h/o HTN, CAD s/p stents, aortic stenosis who was admitted with worsening shortness of breath and cough. She denies any chest pain or palpitations. Found to be in new onset atrial fibrillation. Febrile to 101.7 this admission but denies subjective fevers or chills. +nonproductive cough without wheezing. CT chest done, official read pending but appears to have right upper lobe septal thickening and likely early infiltrate. Hypoxic on ventimask, now on a NRB. - History Source History Provided By: Patient, Medical Record Limitations to Obtaining History: Clinical Condition - Past Medical History Cardio/Vascular: Yes: CAD, HTN, Hyperlipdemia ...: No - Past Surgical History Past Surgical History: Yes: Appendectomy - Alcohol/Substance Use Hx Alcohol Use: No - Smoking History Smoking history: Never smoked Have you smoked in the past 12 months: No Aproximately how many cigarettes per day: 0 Home Medications - Allergies Allergies/Adverse Reactions: Allergies Allergy/AdvReac Type Severity Reaction Status Date / Time No Known Allergies Allergy Verified 09/20/18 15:32 - Home Medications Home Medications: Ambulatory Orders Metoprolol Succinate [Toprol XL -] 12.5 mg PO DAILY tab.sr.24h 09/12/16 Nifedipine ER [Procardia XL -] 60 mg PO HS 09/20/18 Calcium Carbonate [Calcium] 500 mg PO DAILY 09/21/18 Review of Systems - Review of Systems Constitutional: reports: Fever, Weakness Eyes: denies: Recent Change in Vision HENT: denies: Nasal Congestion, Throat Pain Neck: denies: Stiffness, Tenderness Cardiovascular: reports: Shortness of Breath. denies: Chest Pain, Palpitations Respiratory: reports: Cough, SOB. denies: Hemoptysis, Wheezing Gastrointestinal: denies: Abdominal Pain, Nausea, Vomiting Genitourinary: denies: Dysuria, Hematuria Neurological: denies: Dizziness, Headache Endocrine: denies: Unexplained Weight Loss Physical Exam Vital Sings: Vital Signs Temperature 98.8 F 09/22/18 10:00 Pulse Rate 80 09/22/18 10:00 Respiratory Rate 20 09/22/18 10:00 Blood Pressure 99/48 L 09/22/18 10:00 O2 Sat by Pulse Oximetry (%) 99 09/22/18 09:00 Constitutional: Yes: Mild Distress Eyes: Yes: Conjunctiva Clear, EOM Intact HENT: Yes: Atraumatic, Normocephalic Neck: Yes: Supple, Trachea Midline Cardiovascular: Yes: Regular Rate and Rhythm Respiratory: Yes: Rales (right sided), Rhonchi ...Clubbing: No Gastrointestinal: Yes: Normal Bowel Sounds, Soft. No: Tenderness Edema: No Labs: CBC, BMP 09/22/18 05:50 09/22/18 05:50 ABG Results ABG pH 7.38 (7.35-7.45) 09/22/18 08:13 ABG pCO2 at Pt Temp 46.2 mmHg (35-45) H 09/22/18 08:13 ABG pO2 at Pt Temp 147.0 mmHg (68-100) H D 09/22/18 08:13 ABG HCO3 26.4 meq/L (22-26) H 09/22/18 08:13 ABG O2 Sat (Measured) 99.1 % (90-98.9) H 09/22/18 08:13 ABG O2 Content 16.9 % vol (15-22) 09/22/18 08:13 ABG Base Excess 1.4 meq/l (-2-2) 09/22/18 08:13 Imaging - Results Chest X-ray: Report Reviewed, Image Reviewed Cat Scan: Image Reviewed (RUL septal thickening, early infiltrate) Problem List - Problems (1) Acute hypoxemic respiratory failure Code(s): J96.01 - ACUTE RESPIRATORY FAILURE WITH HYPOXIA (2) Pneumonia Code(s): J18.9 - PNEUMONIA, UNSPECIFIED ORGANISM (3) Atrial fibrillation with controlled ventricular rate Code(s): I48.91 - UNSPECIFIED ATRIAL FIBRILLATION (4) Coronary artery disease Code(s): I25.10 - ATHSCL HEART DISEASE OF [place] CORONARY ARTERY W/O ANG PCTRS Qualifiers: Coronary Disease-Associated Artery/Lesion type: [place] artery [place] vs. transplanted heart: [place] heart Associated angina: without angina Qualified Code(s): I25.10 - Atherosclerotic heart disease of [place] coronary artery without angina pectoris (5) Diastolic dysfunction Code(s): I51.89 - OTHER ILL-DEFINED HEART DISEASES Assessment/Plan Acute Hypoxic Respiratory Failure Pneumonia Sepsis New Onset Atrial Fibrillation Aortic Stenosis LV Diastolic Dysfunction CAD CKD - continue antibiotics - f/u cultures - O2 to keep Spo2 >90% - inhaled bronchodilators - will start short course of steroids - BiPAP as needed to assist in work of breathing - f/u official CT chest read - rate controlled - continue anticoagulation Thank you for this consult Tray Chan MD
[2018-09-22] MEDS ORDERED: ALBUTEROL SO4 0.042% IH SOL 1.25 MG/3 ML VIAL.NEB NEB PRN (13:03)
[2018-09-22] MEDS: methylPREDNISolone NA SUCC 40 MG/1 ML VIAL IVPUSH SCH ×2 (14:33→18:07)
--- NOTE | 2018-09-22 14:46 | ECHO ---
Name: BARBRA SEPULVEDA Exam:Adult Echocardiogram Study Date: 09/22/2018 10:24 AM Age: 88 yrs Reason For Study: SOB Height: 60 in Weight: 115 lb BSA: 1.5 m2 MMode/2D Measurements & Calculations IVSd: 0.74 cm Ao root diam: 2.6 cm LVIDd: 3.4 cm LA dimension: 3.1 cm LVIDs: 2.6 cm LVPWd: 0.72 cm EDV(Teich): 46.5 ml LVOT diam: 1.9 cm ESV(Teich): 25.4 ml Doppler Measurements & Calculations MV E max gael: 82.9 cm/sec Ao V2 max: 267.2 cm/sec MV A max gael: 100.7 cm/sec Ao max P.9 mmHg MV E/A: 0.82 Ao V2 mean: 200.1 cm/sec MV dec time: 0.34 sec Ao mean P.0 mmHg Ao V2 VTI: 54.9 cm ARIANNA(I,D): 0.77 cm2 AI P1/2t: 592.7 msec ARIANNA(V,D): 0.85 cm2 AI max gael: 206.7 cm/sec LV V1 max P.7 mmHg AI max P.3 mmHg LV V1 mean P.5 mmHg AI dec slope: 102.1 cm/sec2 LV V1 max: 82.3 cm/sec LV V1 mean: 57.8 cm/sec LV V1 VTI: 15.3 cm SV(LVOT): 42.1 ml TR max gael: 194.8 cm/sec TR max P.2 mmHg Med Peak E' Gael: 2.6 cm/sec Med E/e': 31.7 Lat Peak E' Gael: 3.7 cm/sec Lat E/e': 22.3 Procedure A complete two-dimensional transthoracic echocardiogram was performed (2D, M-mode, Doppler and color flow Doppler). Left Ventricle The left ventricle is normal in size. Left ventricular systolic function is normal. Ejection Fraction = 65- 70%. No regional wall motion abnormalities noted. Right Ventricle The right ventricle is normal size. The right ventricular systolic function is normal. Atria The left atrial size is normal. Right atrial size is normal. Mitral Valve There is mild to moderate mitral annular calcification. There is no mitral regurgitation noted. Tricuspid Valve The tricuspid valve is normal in structure and function. No tricuspid regurgitation. Aortic Valve There is severe aortic valve thickening. Severe valvular aortic stenosis. The calculated aortic valve area using the continuity equation is 0.7 cm2. Aortic mean pressure gradient= 24 mmHg. DI (dimensionless i ndex) is estimated 0.24 suggestive of severe aortic valve stenosis. No aortic regurgitation is present. Pulmonic Valve The pulmonic valve is not well visualized. Great Vessels The aortic root is normal size. Pericardium/Pleura There is no pericardial effusion. Interpretation Summary The left ventricle is normal in size. Left ventricular systolic function is normal. No regional wall motion abnormalities noted. Ejection Fraction = 65-70%. The right ventricular systolic function is normal. The left atrial size is normal. Right atrial size is normal. There is mild to moderate mitral annular calcification. There is no mitral regurgitation noted. There is severe aortic valve thickening. Severe valvular aortic stenosis. The calculated aortic valve area using the continuity equation is 0.7 cm2. Aortic mean pressure gradient= 24 mmHg DI (dimensionless index) is estimated 0.24 suggestive of severe aortic valve stenosis No aortic regurgitation is present. There is no pericardial effusion. Previous study is not available for comparison Fantasma Valdivia MD 09/22/2018 02:46 PM
[2018-09-22] MEDS: APIXABAN 2.5 MG TABLET PO SCH (21:27)
[2018-09-22] MEDS: ATORVASTATIN CA 20 MG TABLET (FP) PO SCH (21:27)
[2018-09-23] MEDS: methylPREDNISolone NA SUCC 40 MG/1 ML VIAL IVPUSH SCH ×3 (01:31→18:03)
[2018-09-23 04:17] LABS: SERUM IRON SATURATION 6 % (15-55); TOTAL IRON BINDING CAPACITY 294 ug/dL (250-450); UIBC 275 ug/dL (118-369)
[2018-09-23 07:52] LABS: HEMATOCRIT 39.7 % (32.4-45.2); HEMOGLOBIN 12.5 GM/dL (10.7-15.3); MCH 21.3 pg (25.7-33.7); MCHC 31.5 g/dl (32.0-36.0); MEAN CELL VOLUME 67.5 fl (80-96); PLATELET COUNT 147 K/MM3 (134-434); RBC 5.89 M/mm3 (3.60-5.2); RDW 16.2 % (11.6-15.6); WHITE BLOOD COUNT 3.1 K/mm3 (4.0-10.0)
[2018-09-23] MEDS: ALBUTEROL SO4 2.5/IPRATROPIUM 0.5 INH SOL 3 ML VIAL.NEB. NEB SCH ×3 (07:52→22:10)
[2018-09-23 08:28] LABS: ANION GAP 9 MMOL/L (8-16); BLOOD UREA NITROGEN 33 mg/dL (7-18); CALCIUM 8.5 mg/dL (8.5-10.1); CHLORIDE 101 mmol/L (98-107); CO2 26 mmol/L (21-32); CREATININE 1.4 mg/dL (0.55-1.3); GLUCOSE,RANDOM 128 mg/dL (74-106); MAGNESIUM 2.5 mg/dL (1.8-2.4); PHOSPHOROUS 4.7 mg/dL (2.5-4.9); SODIUM 136 mmol/L (136-145)
[2018-09-23] MEDS ORDERED: DEXTROSE 5%-WATER - 50 ML IVPB ONE (08:55)
[2018-09-23] MEDS ORDERED: cefTRIAXone SODIUM 1 GM VIAL ONE (08:55)
[2018-09-23] MEDS: metoPROLOL SUCCINATE 25 MG TAB.SR.24H (FP) PO SCH (09:24)
[2018-09-23] MEDS: APIXABAN 2.5 MG TABLET PO SCH ×2 (09:24→21:10)
[2018-09-23] MEDS: AZITHROMYCIN IVPB 250 MG in DEXTROSE 5%-WATER - 250 ML IVPB SCH (09:25)
[2018-09-23] MEDS: CEFTRIAXONE 1 GM in DEXTROSE 5%-WATER - 50 ML IVPB SCH (09:25)
[2018-09-23] MEDS ORDERED: SODIUM CHLORIDE 1,000 ML IV SCH (10:45)
--- NOTE | 2018-09-23 11:33 | PN ---
Progress Note, Physician Chief Complaint: Events noted Not in distress History of Present Illness: Patient was seen and examined. Awake and alert. Chart was reviewed Denies chest pain. SOB or palpitations - Current Medication List Current Medications: Active Medications Albuterol Sulfate (Ventolin 0.042trength) -) 1 amp NEB Q4H PRN PRN Reason: SHORT OF BREATH/WHEEZING Albuterol/Ipratropium (Duoneb -) 1 amp NEB RTID [facility] Last Admin: 09/23/18 07:52 Dose: 1 amp Apixaban (Eliquis -) 2.5 mg PO BID [facility] Last Admin: 09/23/18 09:24 Dose: 2.5 mg Atorvastatin Calcium (Lipitor -) 20 mg PO HS [facility] Last Admin: 09/22/18 21:27 Dose: 20 mg Azithromycin 250 mg/ Dextrose 250 mls @ 250 mls/hr IVPB DAILY [facility] Last Admin: 09/23/18 09:25 Dose: 250 mls/hr Ceftriaxone Sodium 1 gm/ (Dextrose) 50 mls @ 100 mls/hr IVPB DAILY [facility]; Protocol Last Admin: 09/23/18 09:25 Dose: 100 mls/hr Sodium Chloride (Normal Saline -) 1,000 mls @ 60 mls/hr IV ASDIR HOANG Last Admin: 09/23/18 10:58 Dose: 60 mls/hr Methylprednisolone Sodium Succinate (Solu-Medrol -) 40 mg IVPUSH Q8H-IV [facility] Stop: 09/24/18 02:01 Last Admin: 09/23/18 09:24 Dose: 40 mg Metoprolol Succinate (Toprol Xl -) 12.5 mg PO DAILY [facility] Last Admin: 09/23/18 09:24 Dose: 12.5 mg - Objective Vital Signs: Vital Signs Temperature 97.2 F L 09/23/18 05:44 Pulse Rate 71 09/23/18 05:44 Respiratory Rate 22 H 09/23/18 09:00 Blood Pressure 102/63 09/23/18 05:44 O2 Sat by Pulse Oximetry (%) 94 L 09/23/18 09:00 Neck: Yes: Supple Cardiovascular: Yes: Regular Rate and Rhythm, Murmur (AZUL), S1, S2 Respiratory: Yes: Diminished Gastrointestinal: Yes: Normal Bowel Sounds, Soft. No: Tenderness Edema: No Additional Findings/Remarks: - Review of Systems Constitutional: denies: Chills, Fever Cardiovascular: (+) Shortness of Breath. denies: Chest Pain, Palpitations Respiratory: reports: SOB. (+) Cough, denies: Orthopnea, PND, Wheezing Gastrointestinal: denies: Abdominal Pain, Constipation, Diarrhea, Melena, Nausea , Rectal Bleeding, Vomiting Musculoskeletal: denies: Joint Pain Neurological: denies: Dizziness, Headache, Seizure, Syncope Labs: CBC, BMP 09/23/18 06:48 09/23/18 06:48 INR, PTT INR 0.95 (0.83-1.09) 09/20/18 17:30 Problem List - Problems (1) Atrial fibrillation with controlled ventricular rate Code(s): I48.91 - UNSPECIFIED ATRIAL FIBRILLATION (2) Chronic kidney disease Code(s): N18.9 - CHRONIC KIDNEY DISEASE, UNSPECIFIED Qualifiers: Chronic kidney disease stage: stage 2 (mild) Qualified Code(s): N18.2 - Chronic kidney disease, stage 2 (mild) (3) Coronary artery disease Code(s): I25.10 - ATHSCL HEART DISEASE OF [place] CORONARY ARTERY W/O ANG PCTRS Qualifiers: Coronary Disease-Associated Artery/Lesion type: [place] artery [place] vs. transplanted heart: [place] heart Associated angina: without angina Qualified Code(s): I25.10 - Atherosclerotic heart disease of [place] coronary artery without angina pectoris (4) Diastolic dysfunction Code(s): I51.89 - OTHER ILL-DEFINED HEART DISEASES (5) Pneumonia Code(s): J18.9 - PNEUMONIA, UNSPECIFIED ORGANISM (6) Stented coronary artery Code(s): Z95.5 - PRESENCE OF CORONARY ANGIOPLASTY IMPLANT AND GRAFT (7) Aortic stenosis Code(s): I35.0 - NONRHEUMATIC AORTIC (VALVE) STENOSIS Qualifiers: Cardiac valve disease etiology: nonrheumatic Qualified Code(s): I35.0 - Nonrheumatic aortic (valve) stenosis (8) HTN (hypertension) Code(s): I10 - ESSENTIAL (PRIMARY) HYPERTENSION Qualifiers: Hypertension type: essential hypertension Qualified Code(s): I10 - Essential (primary) hypertension (9) Hypercholesterolemia Code(s): E78.00 - PURE HYPERCHOLESTEROLEMIA, UNSPECIFIED Assessment/Plan 1. Paroxysmal atrial fibrillation in sinus rhythm [id number] score of 4 on DOAC (Eliquis) 2. Community acquired pneumonia 3. CAD s/p PCI (stent), angina pectoris 4. HTN 5. Diastolic dysfunction with severe , euvolemic 6. CKD 7. Hyperlipidemia PLAN: 1. Empiric antibiotic 2. Echocardiography was reviewed with patient. Doppler interrogation of the aortic valve suggests at least moderate to severe according to mean gradient, but ARIANNA and dimensionless index suggests severe . She remains asymptomatic at this time, therefore, may not need valve replacement yet 3. Toprol XL 12.5 mg QD, Eliquis 2.5 mg BID given elevated [id number] score and Lipitor 20 mg QHS Further plans are to follow Fantasma Valdivia MD
--- NOTE | 2018-09-23 12:03 | PN ---
Progress Note (short form) - Note Progress Note: PULMONARY Breathing much better today. Now on nasal cannula. No fevers or chills. Vital Signs Period Temp Pulse Resp BP Sys/Patel Pulse Ox Last 24 Hr 97.2 F-98.7 F 71-83 20-22 93-109/54-63 92-97 Gen: less tachypneic Heart: RRR Lung: right sided rales Abd: soft, nontender Ext: no edema CBC, BMP 09/23/18 06:48 09/23/18 06:48 Active Medications Albuterol Sulfate (Ventolin 0.042trength) -) 1 amp NEB Q4H PRN PRN Reason: SHORT OF BREATH/WHEEZING Albuterol/Ipratropium (Duoneb -) 1 amp NEB RTID [facility] Last Admin: 09/23/18 07:52 Dose: 1 amp Apixaban (Eliquis -) 2.5 mg PO BID [facility] Last Admin: 09/23/18 09:24 Dose: 2.5 mg Atorvastatin Calcium (Lipitor -) 20 mg PO HS [facility] Last Admin: 09/22/18 21:27 Dose: 20 mg Azithromycin 250 mg/ Dextrose 250 mls @ 250 mls/hr IVPB DAILY [facility] Last Admin: 09/23/18 09:25 Dose: 250 mls/hr Ceftriaxone Sodium 1 gm/ (Dextrose) 50 mls @ 100 mls/hr IVPB DAILY [facility]; Protocol Last Admin: 09/23/18 09:25 Dose: 100 mls/hr Sodium Chloride (Normal Saline -) 1,000 mls @ 60 mls/hr IV ASDIR [facility] Last Admin: 09/23/18 10:58 Dose: 60 mls/hr Methylprednisolone Sodium Succinate (Solu-Medrol -) 40 mg IVPUSH Q8H-IV [facility] Stop: 09/24/18 02:01 Last Admin: 09/23/18 09:24 Dose: 40 mg Metoprolol Succinate (Toprol Xl -) 12.5 mg PO DAILY [facility] Last Admin: 09/23/18 09:24 Dose: 12.5 mg A/P Acute Hypoxic Respiratory Failure improving Pneumonia Sepsis New Onset Atrial Fibrillation Aortic Stenosis LV Diastolic Dysfunction CAD CKD - continue antibiotics - f/u cultures - O2 to keep Spo2 >90% - inhaled bronchodilators - medrol x 48hrs - rate controlled - continue anticoagulation Problem List - Problems (1) Acute hypoxemic respiratory failure Code(s): J96.01 - ACUTE RESPIRATORY FAILURE WITH HYPOXIA (2) Pneumonia Code(s): J18.9 - PNEUMONIA, UNSPECIFIED ORGANISM (3) Atrial fibrillation with controlled ventricular rate Code(s): I48.91 - UNSPECIFIED ATRIAL FIBRILLATION (4) Coronary artery disease Code(s): I25.10 - ATHSCL HEART DISEASE OF [place] CORONARY ARTERY W/O ANG PCTRS Qualifiers: Coronary Disease-Associated Artery/Lesion type: [place] artery [place] vs. transplanted heart: [place] heart Associated angina: without angina Qualified Code(s): I25.10 - Atherosclerotic heart disease of [place] coronary artery without angina pectoris (5) Diastolic dysfunction Code(s): I51.89 - OTHER ILL-DEFINED HEART DISEASES
--- NOTE | 2018-09-23 13:25 | PN ---
Physical Exam: SUBJECTIVE: Patient seen and examined at bedside- no acute events overnight; patient states her breathing is much better. she is now on nasal cannula and saturatingin 90s and eatin. r eleavted at 1.4 from 1.1 OBJECTIVE: Vital Signs Period Temp Pulse Resp BP Sys/Patel Pulse Ox Last 24 Hr 97.2 F-98.7 F 71-83 20-22 93-109/54-63 92-97 GENERAL: The patient is awake, alert, and fully oriented, in no acute distress. EYES: PEERLA; EOMI; no scleral icterus NECK: no JVD; no lymphadenopathy LUNGS: slight crackles B/.L HEART: Regular rate and rhythm, S1, S2 without murmur, rub or gallop. ABDOMEN: Soft, nontender, nondistended, normoactive bowel sounds, no guarding, no rebound, no hepatosplenomegaly, no masses. EXTREMITIES: 2+ pulses, warm, well-perfused, no edema. PSYCH: Normal mood, normal affect. SKIN: Warm, dry, normal turgor, no rashes or lesions noted Laboratory Results - last 24 hr 09/22/18 09/22/18 09/23/18 05:50 13:40 06:48 WBC 3.1 L RBC 5.89 H Hgb 12.5 Hct 39.7 MCV 67.5 L MCH 21.3 L MCHC 31.5 L RDW 16.2 H Plt Count 147 MPV 9.0 Sodium Potassium Chloride Carbon Dioxide Anion Gap BUN Creatinine Creat Clearance w eGFR Random Glucose Lactic Acid 1.8 Calcium Phosphorus Magnesium Iron 19 L TIBC 294 Iron Saturation 6 L 09/23/18 06:48 WBC RBC Hgb Hct MCV MCH MCHC RDW Plt Count MPV Sodium 136 Potassium 5.0 Chloride 101 Carbon Dioxide 26 Anion Gap 9 BUN 33 H Creatinine 1.4 H Creat Clearance w eGFR 35.49 Random Glucose 128 H Lactic Acid Calcium 8.5 Phosphorus 4.7 Magnesium 2.5 H Iron TIBC Iron Saturation Active Medications Generic Name Dose Route Start Last Admin Trade Name Freq PRN Reason Stop Dose Admin Albuterol Sulfate 1 amp 09/22/18 13:03 Ventolin 0.042trength) - NEB Q4H PRN SHORT OF BREATH/WHEEZING Albuterol/Ipratropium 1 amp 09/21/18 20:00 09/23/18 13:10 Duoneb - NEB 1 amp RTID [facility]ANG Administration Apixaban 2.5 mg 09/22/18 22:00 09/23/18 09:24 Eliquis - PO 2.5 mg BID HOANG Administration Atorvastatin Calcium 20 mg 09/22/18 22:00 09/22/18 21:27 Lipitor - PO 20 mg HS [facility]ANG Administration Azithromycin 250 mg/ Dextrose 250 mls @ 250 mls/hr 09/22/18 10:00 09/23/18 09 :25 IVPB 250 mls/hr DAILY [facility] Administration Ceftriaxone Sodium 1 gm/ 50 mls @ 100 mls/hr 09/22/18 10:00 09/23/18 09:25 Dextrose IVPB 100 mls/hr DAILY [facility] Administration Protocol Sodium Chloride 1,000 mls @ 60 mls/hr 09/23/18 10:45 09/23/18 10:58 Normal Saline - IV 60 mls/hr ASDIR HOANG Administration Methylprednisolone Sodium Succinate 40 mg 09/22/18 13:15 09/23/18 09:24 Solu-Medrol - IVPUSH 09/24/18 02:01 40 mg Q8H-IV [facility]ANG Administration Metoprolol Succinate 12.5 mg 09/22/18 10:00 09/23/18 09:24 Toprol Xl - PO 12.5 mg DAILY [facility] Administration ASSESSMENT/PLAN: 88 y/o female with PMH of CAD (s/p stent); HTN, anemia,who presented with a one week history of a worsening cough found to have a right sided pneumonia #Pneumonia on nasal canula; patient respiratory status improving CURB 65- 2 points -c/w ceftriaxone and azithromycin day 4 -Pulm consult appreciated: started patient on solumedrol 40Q8H -incentive spirometry -IGM mycoplasma pending -echo done -o2 when needed -monitor vitals and respiratory status #HTN -on toprol 12.5 daily -on nifedipine 60 #AFIB new onset Afib - started on eliquis 2.5 BID -toprol 12.5 daily #CAD ASA 81 daily F/E/N NS @60mls/hr monitor electrolytes sodium controlled diet DVT PPX: heparin sq Problem List - Problems (1) Atrial fibrillation with controlled ventricular rate Code(s): I48.91 - UNSPECIFIED ATRIAL FIBRILLATION (2) Chronic kidney disease Code(s): N18.9 - CHRONIC KIDNEY DISEASE, UNSPECIFIED Qualifiers: Chronic kidney disease stage: stage 2 (mild) Qualified Code(s): N18.2 - Chronic kidney disease, stage 2 (mild) (3) Diastolic dysfunction Code(s): I51.89 - OTHER ILL-DEFINED HEART DISEASES Visit type - Emergency Visit Emergency Visit: Yes ED Registration Date: 09/20/18 Care time: The patient presented to the Emergency Department on the above date and was hospitalized for further evaluation of their emergent condition. - New Patient This patient is new to me today: No - Critical Care Critical Care patient: No
--- NOTE | 2018-09-23 18:39 | PN ---
Teaching Attending Note Name of Resident: Alexsandra Barney ATTENDING PHYSICIAN STATEMENT I saw and evaluated the patient. I reviewed the resident's note and discussed the case with the resident. I agree with the resident's findings and plan as documented. SUBJECTIVE: No fever or chills . no abd pain . nO RESENDIZ , feels much better . OBJECTIVE: NAD ,awake, and cooperative . no armpit sweating . dry MM CV: RRR, 3/6 SM at RUSB and LLSB . No JVD Lungs: B/L crackles at bases Ext : no edema or erythema Abd: soft, NT, ND , NL BS Assessment/Plan: 88 y/o lady with H/o Severe , CAD , s/p PCI, diverticular bleed, HTN, h/o PNA with resp failure in 2017 who presented with cough x 1 week 1- Possible b/l PNA. improved - cont abx and steroids ( only 48 hr of steroids ) - Now on 4 L Nc only - Legionella neg, sputum cx pending - blood cx neg to date, but sent after Abx 2- New onset A fib: - cont toprol . - cont eliquis 3-HTN: Bp on lower side this am - cont BB - monitor BP, can resume nifedipine if BP is elevated 4- Severe : - Echo reviewed . f/u as out pt 5- Mackenzie: received lasix yesterday. now with MACKENZIE, started IVF in am, but in afternoon she felt more SOB. hold IVF and monitor renal function and volume status 6-Microcytosis : iron studies do not indicate iron def. will check Lead level and Hb electropheresis 7- Lung nodule. need f/u with CT in 6 months Dispo : [facility]
[2018-09-23] MEDS: ATORVASTATIN CA 20 MG TABLET (FP) PO SCH (21:10)
[2018-09-24] MEDS: methylPREDNISolone NA SUCC 40 MG/1 ML VIAL IVPUSH SCH (01:12)
[2018-09-24 07:18] LABS: HEMATOCRIT 39.9 % (32.4-45.2); HEMOGLOBIN 12.8 GM/dL (10.7-15.3); MCH 21.7 pg (25.7-33.7); MCHC 32.1 g/dl (32.0-36.0); MEAN CELL VOLUME 67.6 fl (80-96); MEAN PLT VOLUME 9.3 fl (7.5-11.1); PLATELET COUNT 154 K/MM3 (134-434); RBC 5.91 M/mm3 (3.60-5.2); RDW 15.8 % (11.6-15.6); WHITE BLOOD COUNT 10.1 K/mm3 (4.0-10.0)
[2018-09-24 07:42] LABS: ANION GAP 6 MMOL/L (8-16); BLOOD UREA NITROGEN 44 mg/dL (7-18); CALCIUM 8.4 mg/dL (8.5-10.1); CHLORIDE 105 mmol/L (98-107); CO2 26 mmol/L (21-32); CREATININE 1.2 mg/dL (0.55-1.3); GLUCOSE,RANDOM 156 mg/dL (74-106); MAGNESIUM 2.8 mg/dL (1.8-2.4); PHOSPHOROUS 3.4 mg/dL (2.5-4.9); POTASSIUM 4.6 mmol/L (3.5-5.1); SODIUM 136 mmol/L (136-145)
[2018-09-24] MEDS: ALBUTEROL SO4 2.5/IPRATROPIUM 0.5 INH SOL 3 ML VIAL.NEB. NEB SCH ×3 (07:46→20:45)
--- NOTE | 2018-09-24 07:49 | PN ---
Physical Exam: SUBJECTIVE: Patient seen and examined at bedside- no acute events overnight; patient is more alert and less dyspneic intermittent used of NRB and nasal cannula; denies CP/SOB/NV OBJECTIVE: Vital Signs Period Temp Pulse Resp BP Sys/Patel Pulse Ox Last 24 Hr 97.4 F-98.4 F 74-98 20-22 120-166/62-88 93-94 GENERAL: The patient is awake, alert, and fully oriented, in no acute distress. EYES:PEERLA; EOMI: no scleral icterus NECK: no JVD; no lymphadenoapthy. LUNGS: slight wheezing B /L HEART: Regular rate and rhythm, S1, S2 without murmur, rub or gallop. ABDOMEN: Soft, nontender, nondistended, normoactive bowel sounds, no guarding, no rebound, no hepatosplenomegaly, no masses. EXTREMITIES: warm; well-perfused; no clubbing/cyanosis or edema PSYCH: Normal mood, normal affect. SKIN: Warm, dry, normal turgor, no rashes or lesions noted Laboratory Results - last 24 hr 09/23/18 09/23/18 09/24/18 06:48 06:48 06:40 WBC 3.1 L RBC 5.89 H Hgb 12.5 Hct 39.7 MCV 67.5 L MCH 21.3 L MCHC 31.5 L RDW 16.2 H Plt Count 147 MPV 9.0 Sodium 136 136 Potassium 5.0 4.6 Chloride 101 105 Carbon Dioxide 26 26 Anion Gap 9 6 L BUN 33 H 44 H Creatinine 1.4 H 1.2 Creat Clearance w eGFR 35.49 42.40 Random Glucose 128 H 156 H Calcium 8.5 8.4 L Phosphorus 4.7 3.4 Magnesium 2.5 H 2.8 H Active Medications Generic Name Dose Route Start Last Admin Trade Name Freq PRN Reason Stop Dose Admin Albuterol Sulfate 1 amp 09/22/18 13:03 09/24/18 06:00 Ventolin 0.042trength) - NEB 1 amp Q4H PRN Administration SHORT OF BREATH/WHEEZING Albuterol/Ipratropium 1 amp 09/21/18 20:00 09/24/18 07:46 Duoneb - NEB 1 amp RTID HOANG Administration Apixaban 2.5 mg 09/22/18 22:00 09/23/18 21:10 Eliquis - PO 2.5 mg BID HOANG Administration Atorvastatin Calcium 20 mg 09/22/18 22:00 09/23/18 21:10 Lipitor - PO 20 mg HS HOANG Administration Azithromycin 250 mg/ Dextrose 250 mls @ 250 mls/hr 09/22/18 10:00 09/23/18 09 :25 IVPB 250 mls/hr DAILY HOANG Administration Ceftriaxone Sodium 1 gm/ 50 mls @ 100 mls/hr 09/22/18 10:00 09/23/18 09:25 Dextrose IVPB 100 mls/hr DAILY HOANG Administration Protocol Metoprolol Succinate 12.5 mg 09/22/18 10:00 09/23/18 09:24 Toprol Xl - PO 12.5 mg DAILY HOANG Administration ASSESSMENT/PLAN: 88 y/o female with PMH of CAD (s/p stent); HTN, anemia,who presented with a one week history of a worsening cough found to have a right sided pneumonia #Pneumonia on nasal canula; patient respiratory status improving CURB 65- 2 points -c/w ceftriaxone and azithromycin day 5 -Pulm consult appreciated: finished 48 hours of IV solumedrol -incentive spirometry -IGM mycoplasma negative -echo done -o2 when needed -monitor vitals and respiratory status #HTN -on toprol 12.5 daily -on nifedipine 60 #AFIB new onset Afib - started on eliquis 2.5 BID -toprol 12.5 daily #CAD ASA 81 daily F/E/N NS @60mls/hr monitor electrolytes sodium controlled diet Problem List - Problems (1) Atrial fibrillation with controlled ventricular rate Code(s): I48.91 - UNSPECIFIED ATRIAL FIBRILLATION (2) Chronic kidney disease Code(s): N18.9 - CHRONIC KIDNEY DISEASE, UNSPECIFIED Qualifiers: Chronic kidney disease stage: stage 2 (mild) Qualified Code(s): N18.2 - Chronic kidney disease, stage 2 (mild) (3) Diastolic dysfunction Code(s): I51.89 - OTHER ILL-DEFINED HEART DISEASES Visit type - Emergency Visit Emergency Visit: Yes ED Registration Date: 09/20/18 Care time: The patient presented to the Emergency Department on the above date and was hospitalized for further evaluation of their emergent condition. - New Patient This patient is new to me today: No - Critical Care Critical Care patient: No
--- NOTE | 2018-09-24 09:10 | PN ---
Teaching Attending Note Name of Resident: Alexsandra Barney ATTENDING PHYSICIAN STATEMENT I saw and evaluated the patient. I reviewed the resident's note and discussed the case with the resident. I agree with the resident's findings and plan as documented. SUBJECTIVE: Patient is feeling better with no acute distress, no shortness of breath, no nausea or vomiting, no fever or chills. OBJECTIVE: Vital Signs Temperature 98.2 F 09/24/18 05:00 Pulse Rate 74 09/24/18 05:00 Respiratory Rate 22 H 09/24/18 05:00 Blood Pressure 149/88 09/24/18 05:00 O2 Sat by Pulse Oximetry (%) 93 L 09/23/18 21:00 GENERAL: The patient is awake, alert, and fully oriented, in no acute distress.on 4l nasal canula. HEAD: Normal with no signs of trauma. EYES: PERRL, extraocular movements intact, sclera anicteric, conjunctiva clear. ENT: Ears normal, oropharynx clear without exudates, moist mucous membranes. NECK: Trachea midline, full range of motion, supple. LUNGS:decreased Breath sounds bl, positive for wheezing bl scattered, no crackles, no accessory muscle use. HEART: Regular rate and rhythm, S1, S2 without murmur, rub or gallop. ABDOMEN: Soft, nontender, nondistended, normoactive bowel sounds, no guarding, no rebound, no hepatosplenomegaly, no masses. EXTREMITIES: 2+ pulses, warm, well-perfused, no edema. NEUROLOGICAL: Cranial nerves II through XII grossly intact. Normal speech, gait not observed. PSYCH: Normal mood, normal affect. SKIN: Warm, dry, normal turgor, no rashes or lesions noted CBCD WBC 10.1 K/mm3 (4.0-10.0) H 09/24/18 06:40 RBC 5.91 M/mm3 (3.60-5.2) H 09/24/18 06:40 Hgb 12.8 GM/dL (10.7-15.3) 09/24/18 06:40 Hct 39.9 % (32.4-45.2) 09/24/18 06:40 MCV 67.6 fl (80-96) L 09/24/18 06:40 MCHC 32.1 g/dl (32.0-36.0) 09/24/18 06:40 RDW 15.8 % (11.6-15.6) H 09/24/18 06:40 Plt Count 154 K/MM3 (134-434) 09/24/18 06:40 MPV 9.3 fl (7.5-11.1) 09/24/18 06:40 CMP Sodium 136 mmol/L (136-145) 09/24/18 06:40 Potassium 4.6 mmol/L (3.5-5.1) 09/24/18 06:40 Chloride 105 mmol/L (98-107) 09/24/18 06:40 Carbon Dioxide 26 mmol/L (21-32) 09/24/18 06:40 Anion Gap 6 MMOL/L (8-16) L 09/24/18 06:40 BUN 44 mg/dL (7-18) H 09/24/18 06:40 Creatinine 1.2 mg/dL (0.55-1.3) 09/24/18 06:40 Creat Clearance w eGFR 42.40 (>60) 09/24/18 06:40 Random Glucose 156 mg/dL (74-106) H 09/24/18 06:40 Calcium 8.4 mg/dL (8.5-10.1) L 09/24/18 06:40 Total Bilirubin 0.2 mg/dL (0.2-1) 09/21/18 05:15 AST 13 U/L (15-37) L 09/21/18 05:15 ALT 26 U/L (13-61) 09/21/18 05:15 Alkaline Phosphatase 83 U/L (45-117) 09/21/18 05:15 Total Protein 7.5 g/dl (6.4-8.2) 09/21/18 05:15 Albumin 3.2 g/dl (3.4-5.0) L 09/21/18 05:15 CARDIAC ENZYMES Creatine Kinase 111 U/L (26-192) 09/20/18 17:30 Troponin I 0.03 ng/ml (0.00-0.05) 09/20/18 17:30 Current Medications Generic Name Dose Route Start Last Admin Trade Name Freq PRN Reason Stop Dose Admin Albuterol Sulfate 1 amp 09/22/18 13:03 09/24/18 06:00 Ventolin 0.042trength) - NEB 1 amp Q4H PRN Administration SHORT OF BREATH/WHEEZING Albuterol/Ipratropium 1 amp 09/21/18 20:00 09/24/18 07:46 Duoneb - NEB 1 amp RTID HOANG Administration Apixaban 2.5 mg 09/22/18 22:00 09/23/18 21:10 Eliquis - PO 2.5 mg BID HOANG Administration Atorvastatin Calcium 20 mg 09/22/18 22:00 09/23/18 21:10 Lipitor - PO 20 mg HS HOANG Administration Azithromycin 250 mg/ Dextrose 250 mls @ 250 mls/hr 09/22/18 10:00 09/23/18 09 :25 IVPB 250 mls/hr DAILY HOANG Administration Ceftriaxone Sodium 1 gm/ 50 mls @ 100 mls/hr 09/22/18 10:00 09/23/18 09:25 Dextrose IVPB 100 mls/hr DAILY HOANG Administration Protocol Metoprolol Succinate 12.5 mg 09/22/18 10:00 09/23/18 09:24 Toprol Xl - PO 12.5 mg DAILY HOANG Administration Home Medications Medication Instructions Recorded Metoprolol Succinate [Toprol XL -] 12.5 mg PO DAILY tab.sr.24h 09/12/16 Nifedipine ER [Procardia XL -] 60 mg PO HS 09/20/18 Calcium Carbonate [Calcium] 500 mg PO DAILY 09/21/18 Microbiology 09/21/18 12:20 Blood - Peripheral Venous Blood Culture - Preliminary NO GROWTH OBTAINED AFTER 96 HOURS, INCUBATION TO CONTINUE FOR 1 DAYS. 09/21/18 12:35 Blood - Peripheral Venous Blood Culture - Preliminary NO GROWTH OBTAINED AFTER 96 HOURS, INCUBATION TO CONTINUE FOR 1 DAYS. 09/21/18 20:20 Urine For Antigen Detection Legionella Antigen - Final 09/21/18 20:20 Urine For Antigen Detection Streptococcus pneumoniae Antigen (M - Final ASSESSMENT AND PLAN: Patient is 88 y/o lady with H/o Severe , CAD , s/p PCI, diverticular bleed, HTN, h/o PNA with resp failure in 2017 who presented with cough x 1 week # Acute b/l PNA. on IV antibiotic, s/p steroids only x48 hrs. on 4 L N[place] only , check Legionella/pneumonia neg, blood cx neg to date, but sent after Abx # New onset A fib: cont toprol , and eliquis #HTN: continue BB , resume nifedipine 30mg since BP is elevated # Severe : Echo reviewed . f/u as out pt # Mackenzie: received lasix yesterday. now with MACKENZIE, started IVF in am, but in afternoon she felt more SOB. hold IVF and monitor renal function and volume status #Microcytosis : iron studies do not indicate iron def. Lead level is pending and Hb electropheresis #Lung nodule. need f/u with CT in 6 months possible discharge in am
--- NOTE | 2018-09-24 10:26 | PN ---
Progress Note, Physician History of Present Illness: pulmonary alert,feeling better,less dyspneic - Current Medication List Current Medications: Active Medications Albuterol Sulfate (Ventolin 0.042trength) -) 1 amp NEB Q4H PRN PRN Reason: SHORT OF BREATH/WHEEZING Last Admin: 09/24/18 06:00 Dose: 1 amp Albuterol/Ipratropium (Duoneb -) 1 amp NEB RTID [facility] Last Admin: 09/24/18 07:46 Dose: 1 amp Apixaban (Eliquis -) 2.5 mg PO BID [facility] Last Admin: 09/23/18 21:10 Dose: 2.5 mg Atorvastatin Calcium (Lipitor -) 20 mg PO HS [facility] Last Admin: 09/23/18 21:10 Dose: 20 mg Azithromycin 250 mg/ Dextrose 250 mls @ 250 mls/hr IVPB DAILY [facility] Last Admin: 09/23/18 09:25 Dose: 250 mls/hr Ceftriaxone Sodium 1 gm/ (Dextrose) 50 mls @ 100 mls/hr IVPB DAILY [facility]; Protocol Last Admin: 09/23/18 09:25 Dose: 100 mls/hr Metoprolol Succinate (Toprol Xl -) 12.5 mg PO DAILY [facility] Last Admin: 09/23/18 09:24 Dose: 12.5 mg - Objective Vital Signs: Vital Signs Temperature 98.2 F 09/24/18 05:00 Pulse Rate 70 09/24/18 09:00 Respiratory Rate 24 H 09/24/18 09:00 Blood Pressure 162/87 09/24/18 09:00 O2 Sat by Pulse Oximetry (%) 96 09/24/18 09:00 Constitutional: Yes: Well Nourished, Calm Eyes: Yes: WNL HENT: Yes: WNL Neck: Yes: WNL Cardiovascular: Yes: Pulse Irregular, S1, S2 Respiratory: Yes: Rales Gastrointestinal: Yes: Normal Bowel Sounds, Soft Extremities: Yes: WNL Edema: No Labs: CBC, BMP 09/24/18 06:40 09/24/18 06:40 INR, PTT INR 0.95 (0.83-1.09) 09/20/18 17:30 Assessment/Plan A/P Acute Hypoxic Respiratory Failure improving Pneumonia Sepsis New Onset Atrial Fibrillation Aortic Stenosis LV Diastolic Dysfunction CAD CKD LLL nodule - antibiotics - O2 to keep Spo2 >90% - inhaled bronchodilators - rate controlled - continue anticoagulation f/u chest ct outpatient Problem List - Problems (1) Acute hypoxemic respiratory failure Code(s): J96.01 - ACUTE RESPIRATORY FAILURE WITH HYPOXIA (2) Pneumonia Code(s): J18.9 - PNEUMONIA, UNSPECIFIED ORGANISM (3) Atrial fibrillation with controlled ventricular rate Code(s): I48.91 - UNSPECIFIED ATRIAL FIBRILLATION (4) Coronary artery disease Code(s): I25.10 - ATHSCL HEART DISEASE OF [place] CORONARY ARTERY W/O ANG PCTRS Qualifiers: Coronary Disease-Associated Artery/Lesion type: [place] artery [place] vs. transplanted heart: [place] heart Associated angina: without angina Qualified Code(s): I25.10 - Atherosclerotic heart disease of [place] coronary artery without angina pectoris (5) Diastolic dysfunction Code(s): I51.89 - OTHER ILL-DEFINED HEART DISEASES
--- NOTE | 2018-09-24 10:43 | PN ---
Progress Note, Physician History of Present Illness: Dyspnea improving, remains in NSR. - Current Medication List Current Medications: Active Medications Albuterol Sulfate (Ventolin 0.042trength) -) 1 amp NEB Q4H PRN PRN Reason: SHORT OF BREATH/WHEEZING Last Admin: 09/24/18 06:00 Dose: 1 amp Albuterol/Ipratropium (Duoneb -) 1 amp NEB RTID [facility] Last Admin: 09/24/18 07:46 Dose: 1 amp Apixaban (Eliquis -) 2.5 mg PO BID [facility] Last Admin: 09/23/18 21:10 Dose: 2.5 mg Atorvastatin Calcium (Lipitor -) 20 mg PO HS [facility] Last Admin: 09/23/18 21:10 Dose: 20 mg Azithromycin 250 mg/ Dextrose 250 mls @ 250 mls/hr IVPB DAILY [facility] Last Admin: 09/23/18 09:25 Dose: 250 mls/hr Ceftriaxone Sodium 1 gm/ (Dextrose) 50 mls @ 100 mls/hr IVPB DAILY [facility]; Protocol Last Admin: 09/23/18 09:25 Dose: 100 mls/hr Metoprolol Succinate (Toprol Xl -) 12.5 mg PO DAILY [facility] Last Admin: 09/23/18 09:24 Dose: 12.5 mg - Objective Vital Signs: Vital Signs Temperature 98.2 F 09/24/18 05:00 Pulse Rate 70 09/24/18 09:00 Respiratory Rate 24 H 09/24/18 09:00 Blood Pressure 162/87 09/24/18 09:00 O2 Sat by Pulse Oximetry (%) 96 09/24/18 09:00 Constitutional: Yes: No Distress, Calm, Thin Neck: Yes: Supple Cardiovascular: Yes: Regular Rate and Rhythm, Murmur (3/6 SM) Respiratory: Yes: Regular, Diminished Gastrointestinal: Yes: Normal Bowel Sounds, Soft Edema: No Labs: CBC, BMP 09/24/18 06:40 09/24/18 06:40 INR, PTT INR 0.95 (0.83-1.09) 09/20/18 17:30 - ....Imaging EKG: Report Reviewed (Tele: NSR) Problem List - Problems (1) Coronary artery disease Code(s): I25.10 - ATHSCL HEART DISEASE OF [place] CORONARY ARTERY W/O ANG PCTRS Qualifiers: Coronary Disease-Associated Artery/Lesion type: [place] artery [place] vs. transplanted heart: [place] heart Associated angina: without angina Qualified Code(s): I25.10 - Atherosclerotic heart disease of [place] coronary artery without angina pectoris (2) Stented coronary artery Code(s): Z95.5 - PRESENCE OF CORONARY ANGIOPLASTY IMPLANT AND GRAFT (3) Atrial fibrillation with controlled ventricular rate Code(s): I48.91 - UNSPECIFIED ATRIAL FIBRILLATION (4) Pneumonia Code(s): J18.9 - PNEUMONIA, UNSPECIFIED ORGANISM (5) Aortic stenosis Code(s): I35.0 - NONRHEUMATIC AORTIC (VALVE) STENOSIS Qualifiers: Cardiac valve disease etiology: nonrheumatic Qualified Code(s): I35.0 - Nonrheumatic aortic (valve) stenosis (6) Cough Code(s): R05 - COUGH (7) HTN (hypertension) Code(s): I10 - ESSENTIAL (PRIMARY) HYPERTENSION Qualifiers: Hypertension type: essential hypertension Qualified Code(s): I10 - Essential (primary) hypertension (8) Diastolic dysfunction Code(s): I51.89 - OTHER ILL-DEFINED HEART DISEASES (9) Chronic kidney disease Code(s): N18.9 - CHRONIC KIDNEY DISEASE, UNSPECIFIED Qualifiers: Chronic kidney disease stage: stage 2 (mild) Qualified Code(s): N18.2 - Chronic kidney disease, stage 2 (mild) Assessment/Plan 09/01/2016 Mild LAE, normal LV fxn, mild MR, TR, AR, mod-severe , MG 24.1 mmHg , ARIANNA 0.85 cm^2 09/21/[address]: Mild COPD and RUL ATX 09/22/2018 Normal LV and RV size and fxn, severe ARIANNA 0.7 cm^2, no AR 1. Paroxysmal atrial fibrillation in sinus rhythm [id number] score of 4 on DOAC (Eliquis) 2. Community acquired pneumonia and COPD 3. CAD s/p PCI (stent), angina pectoris 4. HTN 5. Diastolic dysfunction with severe , euvolemic 6. CKD 7. Hyperlipidemia PLAN: 1. Abx course per C&S, BD, O2 as needed 2. Echocardiography was reviewed with patient. Doppler interrogation of the aortic valve suggests at least moderate to severe according to mean gradient, but ARIANNA and dimensionless index suggests severe . She remains asymptomatic at this time, therefore, may not need valve replacement yet 3. Toprol XL 12.5 mg QD, Eliquis 2.5 mg BID given elevated [id number] score and Lipitor 20 mg QHS
[2018-09-24] MEDS ORDERED: DEXTROSE 5%-WATER - 50 ML IVPB ONE (10:51)
[2018-09-24] MEDS ORDERED: cefTRIAXone SODIUM 1 GM VIAL ONE (10:51)
[2018-09-24] MEDS: AZITHROMYCIN IVPB 250 MG in DEXTROSE 5%-WATER - 250 ML IVPB SCH (12:57)
[2018-09-24] MEDS: APIXABAN 2.5 MG TABLET PO SCH ×2 (12:58→21:14)
[2018-09-24] MEDS: metoPROLOL SUCCINATE 25 MG TAB.SR.24H (FP) PO SCH (12:58)
[2018-09-24] MEDS: CEFTRIAXONE 1 GM in DEXTROSE 5%-WATER - 50 ML IVPB SCH (12:58)
[2018-09-24] MEDS: ATORVASTATIN CA 20 MG TABLET (FP) PO SCH (21:14)
[2018-09-25] MEDS: ALBUTEROL SO4 2.5/IPRATROPIUM 0.5 INH SOL 3 ML VIAL.NEB. NEB SCH ×2 (07:20→14:32)
[2018-09-25 07:32] LABS: HEMATOCRIT 37.7 % (32.4-45.2); MCH 21.5 pg (25.7-33.7); MCHC 31.9 g/dl (32.0-36.0); MEAN CELL VOLUME 67.4 fl (80-96); MEAN PLT VOLUME 9.1 fl (7.5-11.1); PLATELET COUNT 171 K/MM3 (134-434); RDW 15.5 % (11.6-15.6); WHITE BLOOD COUNT 8.2 K/mm3 (4.0-10.0)
[2018-09-25 08:00] LABS: ANION GAP 6 MMOL/L (8-16); BLOOD UREA NITROGEN 45 mg/dL (7-18); CALCIUM 7.9 mg/dL (8.5-10.1); CHLORIDE 109 mmol/L (98-107); CO2 28 mmol/L (21-32); CREATININE 1.2 mg/dL (0.55-1.3); GLUCOSE,RANDOM 89 mg/dL (74-106); MAGNESIUM 2.7 mg/dL (1.8-2.4); PHOSPHOROUS 3.4 mg/dL (2.5-4.9); POTASSIUM 4.3 mmol/L (3.5-5.1); SODIUM 143 mmol/L (136-145)
--- NOTE | 2018-09-25 09:19 | PN ---
Progress Note, Physician History of Present Illness: Dyspnea improving, episodes of PAF-> NSR. - Current Medication List Current Medications: Active Medications Albuterol Sulfate (Ventolin 0.042trength) -) 1 amp NEB Q4H PRN PRN Reason: SHORT OF BREATH/WHEEZING Last Admin: 09/24/18 06:00 Dose: 1 amp Albuterol/Ipratropium (Duoneb -) 1 amp NEB RTID [facility] Last Admin: 09/25/18 07:20 Dose: 1 amp Apixaban (Eliquis -) 2.5 mg PO BID [facility] Last Admin: 09/24/18 21:14 Dose: 2.5 mg Atorvastatin Calcium (Lipitor -) 20 mg PO HS [facility] Last Admin: 09/24/18 21:14 Dose: 20 mg Azithromycin 250 mg/ Dextrose 250 mls @ 250 mls/hr IVPB DAILY [facility] Last Admin: 09/24/18 12:57 Dose: 250 mls/hr Ceftriaxone Sodium 1 gm/ (Dextrose) 50 mls @ 100 mls/hr IVPB DAILY [facility]; Protocol Last Admin: 09/24/18 12:58 Dose: 100 mls/hr Metoprolol Succinate (Toprol Xl -) 12.5 mg PO DAILY [facility] Last Admin: 09/24/18 12:58 Dose: 12.5 mg - Objective Vital Signs: Vital Signs Temperature 97.7 F 09/25/18 05:00 Pulse Rate 72 09/25/18 05:00 Respiratory Rate 18 09/25/18 05:00 Blood Pressure 155/74 09/25/18 05:00 O2 Sat by Pulse Oximetry (%) 98 09/24/18 21:00 Constitutional: Yes: No Distress, Calm, Thin Neck: Yes: Supple Cardiovascular: Yes: Regular Rate and Rhythm, Murmur (2/6 SM) Respiratory: Yes: Regular, Diminished, On Nasal O2 Gastrointestinal: Yes: Normal Bowel Sounds, Soft Edema: No Labs: CBC, BMP 09/25/18 06:00 09/25/18 06:00 INR, PTT INR 0.95 (0.83-1.09) 09/20/18 17:30 - ....Imaging EKG: Report Reviewed (Tele: PAF->SR) Problem List - Problems (1) Coronary artery disease Code(s): I25.10 - ATHSCL HEART DISEASE OF [place] CORONARY ARTERY W/O ANG PCTRS Qualifiers: Coronary Disease-Associated Artery/Lesion type: [place] artery [place] vs. transplanted heart: [place] heart Associated angina: without angina Qualified Code(s): I25.10 - Atherosclerotic heart disease of [place] coronary artery without angina pectoris (2) Stented coronary artery Code(s): Z95.5 - PRESENCE OF CORONARY ANGIOPLASTY IMPLANT AND GRAFT (3) Atrial fibrillation with controlled ventricular rate Code(s): I48.91 - UNSPECIFIED ATRIAL FIBRILLATION (4) Pneumonia Code(s): J18.9 - PNEUMONIA, UNSPECIFIED ORGANISM (5) Aortic stenosis Code(s): I35.0 - NONRHEUMATIC AORTIC (VALVE) STENOSIS Qualifiers: Cardiac valve disease etiology: nonrheumatic Qualified Code(s): I35.0 - Nonrheumatic aortic (valve) stenosis (6) Cough Code(s): R05 - COUGH (7) HTN (hypertension) Code(s): I10 - ESSENTIAL (PRIMARY) HYPERTENSION Qualifiers: Hypertension type: essential hypertension Qualified Code(s): I10 - Essential (primary) hypertension (8) Diastolic dysfunction Code(s): I51.89 - OTHER ILL-DEFINED HEART DISEASES (9) Chronic kidney disease Code(s): N18.9 - CHRONIC KIDNEY DISEASE, UNSPECIFIED Qualifiers: Chronic kidney disease stage: stage 2 (mild) Qualified Code(s): N18.2 - Chronic kidney disease, stage 2 (mild) Assessment/Plan 09/01/2016 Mild LAE, normal LV fxn, mild MR, TR, AR, mod-severe , MG 24.1 mmHg , ARIANNA 0.85 cm^2 09/21/[address]: Mild COPD and RUL ATX 09/22/2018 Normal LV and RV size and fxn, severe ARIANNA 0.7 cm^2, no AR 1. Paroxysmal atrial fibrillation in sinus rhythm [id number] score of 4 on DOAC (Eliquis) 2. Community acquired pneumonia and COPD 3. CAD s/p PCI (stent), angina pectoris 4. HTN 5. LV diastolic dysfunction with severe , euvolemic 6. CKD 7. Hyperlipidemia PLAN: 1. Abx course per C&S, BD, IV steroids, O2 as needed 2. Echocardiography was reviewed with patient. Doppler interrogation of the aortic valve suggests at least moderate to severe according to mean gradient, but ARIANNA and dimensionless index suggests severe . She remains asymptomatic at this time, therefore, may not need valve replacement yet 3. Increase Toprol XL 25 mg QD, Eliquis 2.5 mg BID given elevated [id number] score and Lipitor 20 mg QHS
[2018-09-25] MEDS ORDERED: cefTRIAXone SODIUM 1 GM VIAL ONE (09:25)
[2018-09-25] MEDS ORDERED: DEXTROSE 5%-WATER - 50 ML IVPB ONE (09:26)
[2018-09-25] MEDS: metoPROLOL SUCCINATE 25 MG TAB.SR.24H (FP) PO SCH (10:00)
[2018-09-25] MEDS: AZITHROMYCIN IVPB 250 MG in DEXTROSE 5%-WATER - 250 ML IVPB SCH (10:01)
[2018-09-25] MEDS: APIXABAN 2.5 MG TABLET PO SCH (10:01)
[2018-09-25] MEDS: CEFTRIAXONE 1 GM in DEXTROSE 5%-WATER - 50 ML IVPB SCH (10:01)
[2018-09-25 10:39] VITALS: TEMP 98.2
--- NOTE | 2018-09-25 11:00 | PN ---
Progress Note, Physician History of Present Illness: PULMONARY ALERT,+ COUGH,LESS DYSPNEIC - Current Medication List Current Medications: Active Medications Albuterol Sulfate (Ventolin 0.042trength) -) 1 amp NEB Q4H PRN PRN Reason: SHORT OF BREATH/WHEEZING Last Admin: 09/24/18 06:00 Dose: 1 amp Albuterol/Ipratropium (Duoneb -) 1 amp NEB RTID [facility] Last Admin: 09/25/18 07:20 Dose: 1 amp Apixaban (Eliquis -) 2.5 mg PO BID [facility] Last Admin: 09/25/18 10:01 Dose: 2.5 mg Atorvastatin Calcium (Lipitor -) 20 mg PO HS [facility] Last Admin: 09/24/18 21:14 Dose: 20 mg Azithromycin 250 mg/ Dextrose 250 mls @ 250 mls/hr IVPB DAILY [facility] Last Admin: 09/25/18 10:01 Dose: 250 mls/hr Ceftriaxone Sodium 1 gm/ (Dextrose) 50 mls @ 100 mls/hr IVPB DAILY [facility]; Protocol Last Admin: 09/25/18 10:01 Dose: 100 mls/hr Metoprolol Succinate (Toprol Xl -) 12.5 mg PO DAILY [facility] Last Admin: 09/25/18 10:00 Dose: 12.5 mg - Objective Vital Signs: Vital Signs Temperature 98.2 F 09/25/18 09:00 Pulse Rate 76 09/25/18 10:49 Respiratory Rate 18 09/25/18 09:00 Blood Pressure 145/76 09/25/18 09:00 O2 Sat by Pulse Oximetry (%) 86 L 09/25/18 10:49 Constitutional: Yes: Well Nourished, Calm Eyes: Yes: WNL HENT: Yes: WNL Neck: Yes: WNL Cardiovascular: Yes: Regular Rate and Rhythm, S1, S2 Respiratory: Yes: Rales, Rhonchi (SCATTERED RHONCHI AND RALES) Gastrointestinal: Yes: Normal Bowel Sounds, Soft Extremities: Yes: WNL Edema: No Labs: CBC, BMP 09/25/18 06:00 09/25/18 06:00 INR, PTT INR 0.95 (0.83-1.09) 09/20/18 17:30 Assessment/Plan A/P Acute Hypoxic Respiratory Failure improving Pneumonia Sepsis New Onset Atrial Fibrillation Aortic Stenosis LV Diastolic Dysfunction CAD CKD LLL nodule - antibiotics - short course of medrol - O2 to keep Spo2 >90% - inhaled bronchodilators - rate controlled - continue anticoagulation f/u chest ct outpatient Problem List - Problems (1) Acute hypoxemic respiratory failure Code(s): J96.01 - ACUTE RESPIRATORY FAILURE WITH HYPOXIA (2) Pneumonia Code(s): J18.9 - PNEUMONIA, UNSPECIFIED ORGANISM (3) Atrial fibrillation with controlled ventricular rate Code(s): I48.91 - UNSPECIFIED ATRIAL FIBRILLATION (4) Coronary artery disease Code(s): I25.10 - ATHSCL HEART DISEASE OF [place] CORONARY ARTERY W/O ANG PCTRS Qualifiers: Coronary Disease-Associated Artery/Lesion type: [place] artery [place] vs. transplanted heart: [place] heart Associated angina: without angina Qualified Code(s): I25.10 - Atherosclerotic heart disease of [place] coronary artery without angina pectoris (5) Diastolic dysfunction Code(s): I51.89 - OTHER ILL-DEFINED HEART DISEASES
[2018-09-25] MEDS ORDERED: metoPROLOL SUCCINATE 25 MG TAB.SR.24H (FP) PO ONE (11:12)
[2018-09-25] MEDS: methylPREDNISolone NA SUCC 40 MG/1 ML VIAL IVPUSH SCH ×2 (13:15→18:14)
--- NOTE | 2018-09-25 14:27 | PN ---
Physical Exam: SUBJECTIVE: Patient seen and examined at bedside- patient is feeling uh better and is saturating well on nasal cannula no longer needing non-rebreeather ; she denies any CP/SOB/N/V OBJECTIVE: Vital Signs Period Temp Pulse Resp BP Sys/Patel Pulse Ox Last 24 Hr 97.7 F-98.3 F 64-76 18-20 144-155/74-84 86-98 GENERAL: The patient is awake, alert, and fully oriented, in no acute distress. EYES: PEERLA; EOMI; no scleral icterus. . NECK: no JVD: no lympahdenopathy LUNGS: wheezing appreciated B/L. HEART: Regular rate and rhythm, S1, S2 without murmur, rub or gallop. ABDOMEN: Soft, nontender, nondistended, normoactive bowel sounds, no guarding, no rebound, no hepatosplenomegaly, no masses. EXTREMITIES: 2+ pulses, warm, well-perfused, no edema. PSYCH: Normal mood, normal affect. SKIN: Warm, dry, normal turgor, no rashes or lesions noted Laboratory Results - last 24 hr 09/25/18 09/25/18 06:00 06:00 WBC 8.2 RBC 5.60 H Hgb 12.0 Hct 37.7 MCV 67.4 L MCH 21.5 L MCHC 31.9 L RDW 15.5 Plt Count 171 MPV 9.1 Sodium 143 Potassium 4.3 Chloride 109 H Carbon Dioxide 28 Anion Gap 6 L BUN 45 H Creatinine 1.2 Creat Clearance w eGFR 42.40 Random Glucose 89 Calcium 7.9 L Phosphorus 3.4 Magnesium 2.7 H Active Medications Generic Name Dose Route Start Last Admin Trade Name Freq PRN Reason Stop Dose Admin Albuterol Sulfate 1 amp 09/22/18 13:03 09/24/18 06:00 Ventolin 0.042trength) - NEB 1 amp Q4H PRN Administration SHORT OF BREATH/WHEEZING Albuterol/Ipratropium 1 amp 09/21/18 20:00 09/25/18 07:20 Duoneb - NEB 1 amp RTID HOANG Administration Apixaban 2.5 mg 09/22/18 22:00 09/25/18 10:01 Eliquis - PO 2.5 mg BID HOANG Administration Atorvastatin Calcium 20 mg 09/22/18 22:00 09/24/18 21:14 Lipitor - PO 20 mg HS HOANG Administration Azithromycin 250 mg/ Dextrose 250 mls @ 250 mls/hr 09/22/18 10:00 09/25/18 10 :01 IVPB 250 mls/hr DAILY HOANG Administration Ceftriaxone Sodium 1 gm/ 50 mls @ 100 mls/hr 09/22/18 10:00 09/25/18 10:01 Dextrose IVPB 100 mls/hr DAILY HOANG Administration Protocol Methylprednisolone Sodium Succinate 40 mg 09/25/18 11:00 09/25/18 13:15 Solu-Medrol - IVPUSH 40 mg Q8H-IV HOANG Administration Metoprolol Succinate 25 mg 09/26/18 10:00 Toprol Xl - PO DAILY HOANG ASSESSMENT/PLAN: 88 y/o female with PMH of CAD (s/p stent); HTN, anemia,who presented with a one week history of a worsening cough found to have a right sided pneumonia #Pneumonia on nasal canula; patient respiratory status improving -Pulm consult appreciated: -incentive spirometry -IGM mycoplasma negative -echo done -failed pre and post; will need home o2 -going to SNF as patients family does not want home care #HTN -on toprol 12.5 daily -on nifedipine 60 #AFIB new onset Afib - started on eliquis 2.5 BID -toprol 12.5 daily #CAD ASA 81 daily F/E/N NS @60mls/hr monitor electrolytes sodium controlled diet Problem List - Problems (1) Atrial fibrillation with controlled ventricular rate Code(s): I48.91 - UNSPECIFIED ATRIAL FIBRILLATION (2) Chronic kidney disease Code(s): N18.9 - CHRONIC KIDNEY DISEASE, UNSPECIFIED Qualifiers: Chronic kidney disease stage: stage 2 (mild) Qualified Code(s): N18.2 - Chronic kidney disease, stage 2 (mild) (3) Diastolic dysfunction Code(s): I51.89 - OTHER ILL-DEFINED HEART DISEASES
[2018-09-25 15:27] VITALS: BP 138/68; PULSE 67
--- NOTE | 2018-09-25 15:49 | DS ---
Physical Exam: SUBJECTIVE Vital Signs Period Temp Pulse Resp BP Sys/Patel Pulse Ox Last 24 Hr 97.7 F-98.3 F 64-76 18-20 138-155/68-84 86-98 SUBJECTIVE: Patient seen and examined at bedside- patient is feeling [facility] [place] better and is saturating well on nasal cannula no longer needing non-rebreeather ; she denies any CP/SOB/N/V OBJECTIVE: Vital Signs Period Temp Pulse Resp BP Sys/Patel Pulse Ox Last 24 Hr 97.7 F-98.3 F 64-76 18-20 144-155/74-84 86-98 GENERAL: The patient is awake, alert, and fully oriented, in no acute distress. EYES: PEERLA; EOMI; no scleral icterus. . NECK: no JVD: no lympahdenopathy LUNGS: wheezing appreciated B/L. HEART: Regular rate and rhythm, S1, S2 without murmur, rub or gallop. ABDOMEN: Soft, nontender, nondistended, normoactive bowel sounds, no guarding, no rebound, no hepatosplenomegaly, no masses. EXTREMITIES: 2+ pulses, warm, well-perfused, no edema. PSYCH: Normal mood, normal affect. SKIN: Warm, dry, normal turgor, no rashes or lesions noted Laboratory Results - last 24 hr 09/25/18 09/25/18 06:00 06:00 WBC 8.2 RBC 5.60 H Hgb 12.0 Hct 37.7 MCV 67.4 L MCH 21.5 L MCHC 31.9 L RDW 15.5 Plt Count 171 MPV 9.1 Sodium 143 Potassium 4.3 Chloride 109 H Carbon Dioxide 28 Anion Gap 6 L BUN 45 H Creatinine 1.2 Creat Clearance w eGFR 42.40 Random Glucose 89 Calcium 7.9 L Phosphorus 3.4 Magnesium 2.7 H CXR: infilatrates mainly in LOWELL and LLL HOSPITAL COURSE: Date of Admission:09/20/18 88 y/o female with PMH of CAD (s/p stent); HTN, anemia,who presented with a one week history of a worsening cough found to have a right sided pneumonia. she had been having worsening dyspnea with productive cough for about a week and a half. so she came to the ER was found to have penumonia; was started on ceftriaxone and azithromycin. she was afebrile with a slight leukocytosis. she was staurating in the low to mid 90s and was place on NC. she then began to destaurate 1-2 days into her stay so she was placed on nonrebrether and given a short course of 48 hours of steroids. she remianed on NRB with saturations in the high 90s for 2 days then trasnitioned to NC> she failed a pre and post and rewuires hoem o2. she was stable for dc to SNF on a short 5 day course of prednsione Date of Discharge: 09/25/18 Minutes to complete discharge: 39 Discharge Summary Reason For Visit: PNEUMONIA Current Active Problems Atrial fibrillation with controlled ventricular rate (Acute) Chronic kidney disease (Acute) Coronary artery disease (Acute) Diastolic dysfunction (Acute) Hypercholesterolemia (Acute) Pneumonia (Acute) Stented coronary artery (Acute) Condition: Stable - Instructions Diet, Activity, Other Instructions: You came to the emergency room with complaints of cough and worsening shortness of breath for over a week and were found to have pneumonia. We treated with you antibiotics and some steroids and your symptoms improved, however, you still had some trouble breathing requiring you to need oxygen. In addition, while you were here your heart went into an abnormal rhythm for which we had a facilities painter evaluate you and started you on a blood thinner. Your symptoms improved and you were discharged to a subacute rehab facility. Please resume all of your medications in addition: Please take the blood thinner, eliquis 2.5mg twice a day You will be given a steroid dose pack to complete at your facility. You will need to complete 1 more dose of Rocephin 1gm through your IV at your facility. PLEASE DO NOT GIVE ELIQUIS AND STEROID TOGETHER, SEPERATE AT LEAST TWO HOURS AWAY FROM EACH OTHER. Please follow up with Dr. Cox within one week Please follow up with Dr. Turner, the sample sawyer within one week Please follow up with Dr. Last, the facilities painter within one week *if you begin to experience any chest pains, shortness of breath, nausea/ vomiting please return to the emergency room immediately Referrals: Fitz Cox [Other] - 1 Week Jv Turner MD [Staff Physician] - 1 Week Howard Last MD [Staff Physician] - 1 Week Disposition: CUSTODIAL FACILITY - Home Medications Comprehensive Discharge Medication List: Ambulatory Orders Metoprolol Succinate [Toprol XL -] 12.5 mg PO DAILY tab.sr.24h 09/12/16 Albuterol Sulfate 0.042% [Ventolin 0.042% (Half-Strength) -] 1 amp NEB Q4H PRN amp 09/25/18 Apixaban [Eliquis -] 2.5 mg PO BID tablet 09/25/18 Atorvastatin Ca [Lipitor] 20 mg PO HS tablet 09/25/18 Ceftriaxone [Rocephin -] 1 gm IVPB DAILY 1 Days vial 09/25/18 Methylprednisolone [Medrol Dose Luis] 4 mg PO ASDIR #21 tablet 09/25/18 Problem List - Problems (1) Atrial fibrillation with controlled ventricular rate Code(s): I48.91 - UNSPECIFIED ATRIAL FIBRILLATION (2) Chronic kidney disease Code(s): N18.9 - CHRONIC KIDNEY DISEASE, UNSPECIFIED Qualifiers: Qualified Code(s): N18.2 - Chronic kidney disease, stage 2 (mild) (3) Diastolic dysfunction Code(s): I51.89 - OTHER ILL-DEFINED HEART DISEASES This patient is new to me today: No Emergency Visit: Yes ED Registration Date: 09/20/18 Care time: The patient presented to the Emergency Department on the above date and was hospitalized for further evaluation of their emergent condition. Critical Care patient: No - Discharge Referral Referred to [facility] No
--- NOTE | 2018-09-25 16:11 | PN ---
Teaching Attending Note Name of Resident: Alexsandra Barney ATTENDING PHYSICIAN STATEMENT I saw and evaluated the patient. I reviewed the resident's note and discussed the case with the resident. I agree with the resident's findings and plan as documented. SUBJECTIVE: Patient is feeling better with no acute distress, saturating 97% on 4liter oxygen , 93% without oxygen. OBJECTIVE: Vital Signs Temperature 98.2 F 09/25/18 14:00 Pulse Rate 67 09/25/18 14:00 Respiratory Rate 18 09/25/18 14:00 Blood Pressure 138/68 09/25/18 14:00 O2 Sat by Pulse Oximetry (%) 86 L 09/25/18 10:49 GENERAL: The patient is awake, alert, and fully oriented, in no acute distress.on 4l nasal canula. HEAD: Normal with no signs of trauma. EYES: PERRL, extraocular movements intact, sclera anicteric, conjunctiva clear. ENT: Ears normal, oropharynx clear without exudates, moist mucous membranes. NECK: Trachea midline, full range of motion, supple. LUNGS:decreased Breath sounds bl, positive for wheezing bl scattered, no crackles, no accessory muscle use. HEART: Regular rate and rhythm, S1, S2 without murmur, rub or gallop. ABDOMEN: Soft, nontender, nondistended, normoactive bowel sounds, no guarding, no rebound, no hepatosplenomegaly, no masses. EXTREMITIES: 2+ pulses, warm, well-perfused, no edema. NEUROLOGICAL: Cranial nerves II through XII grossly intact. Normal speech, gait not observed. PSYCH: Normal mood, normal affect. SKIN: Warm, dry, normal turgor, no rashes or lesions noted CBCD WBC 8.2 K/mm3 (4.0-10.0) 09/25/18 06:00 RBC 5.60 M/mm3 (3.60-5.2) H 09/25/18 06:00 Hgb 12.0 GM/dL (10.7-15.3) 09/25/18 06:00 Hct 37.7 % (32.4-45.2) 09/25/18 06:00 MCV 67.4 fl (80-96) L 09/25/18 06:00 MCHC 31.9 g/dl (32.0-36.0) L 09/25/18 06:00 RDW 15.5 % (11.6-15.6) 09/25/18 06:00 Plt Count 171 K/MM3 (134-434) 09/25/18 06:00 MPV 9.1 fl (7.5-11.1) 09/25/18 06:00 CMP Sodium 143 mmol/L (136-145) 09/25/18 06:00 Potassium 4.3 mmol/L (3.5-5.1) 09/25/18 06:00 Chloride 109 mmol/L (98-107) H 09/25/18 06:00 Carbon Dioxide 28 mmol/L (21-32) 09/25/18 06:00 Anion Gap 6 MMOL/L (8-16) L 09/25/18 06:00 BUN 45 mg/dL (7-18) H 09/25/18 06:00 Creatinine 1.2 mg/dL (0.55-1.3) 09/25/18 06:00 Creat Clearance w eGFR 42.40 (>60) 09/25/18 06:00 Random Glucose 89 mg/dL (74-106) 09/25/18 06:00 Calcium 7.9 mg/dL (8.5-10.1) L 09/25/18 06:00 Total Bilirubin 0.2 mg/dL (0.2-1) 09/21/18 05:15 AST 13 U/L (15-37) L 09/21/18 05:15 ALT 26 U/L (13-61) 09/21/18 05:15 Alkaline Phosphatase 83 U/L (45-117) 09/21/18 05:15 Total Protein 7.5 g/dl (6.4-8.2) 09/21/18 05:15 Albumin 3.2 g/dl (3.4-5.0) L 09/21/18 05:15 CARDIAC ENZYMES Creatine Kinase 111 U/L (26-192) 09/20/18 17:30 Troponin I 0.03 ng/ml (0.00-0.05) 09/20/18 17:30 Current Medications Generic Name Dose Route Start Last Admin Trade Name Freq PRN Reason Stop Dose Admin Albuterol Sulfate 1 amp 09/22/18 13:03 09/24/18 06:00 Ventolin 0.042trength) - NEB 1 amp Q4H PRN Administration SHORT OF BREATH/WHEEZING Apixaban 2.5 mg 09/22/18 22:00 09/25/18 10:01 Eliquis - PO 2.5 mg BID HOANG Administration Atorvastatin Calcium 20 mg 09/22/18 22:00 09/24/18 21:14 Lipitor - PO 20 mg HS HOANG Administration Ceftriaxone Sodium 1 gm/ 50 mls @ 100 mls/hr 09/22/18 10:00 09/25/18 10:01 Dextrose IVPB 100 mls/hr DAILY HOANG Administration Protocol Methylprednisolone Sodium Succinate 40 mg 09/25/18 11:00 09/25/18 13:15 Solu-Medrol - IVPUSH 40 mg Q8H-IV HOANG Administration Metoprolol Succinate 25 mg 09/26/18 10:00 Toprol Xl - PO DAILY HOANG Nifedipine 30 mg 09/26/18 10:00 Procardia Xl - PO DAILY [facility] Home Medications Medication Instructions Recorded RX: Metoprolol Succinate [Toprol 12.5 mg PO DAILY tab.sr.24h 09/12/16 XL -] Methylprednisolone [Medrol Dose 4 mg PO ASDIR #21 tablet 09/25/18 Luis] RX: Albuterol Sulfate 0.042% 1 amp NEB Q4H PRN amp 09/25/18 [Ventolin 0.042% (Half-Strength) -] RX: Apixaban [Eliquis -] 2.5 mg PO BID tablet 09/25/18 RX: Atorvastatin Ca [Lipitor] 20 mg PO HS tablet 09/25/18 RX: Ceftriaxone [Rocephin -] 1 gm IVPB DAILY 1 Days vial 09/25/18 RX: Nifedipine ER [Procardia XL -] 30 mg PO DAILY tab.er.24 09/25/18 A009/21/18 12:20 Blood - Peripheral Venous Blood Culture - Preliminary NO GROWTH OBTAINED AFTER 96 HOURS, INCUBATION TO CONTINUE FOR 1 DAYS. 09/21/18 12:35 Blood - Peripheral Venous Blood Culture - Preliminary NO GROWTH OBTAINED AFTER 96 HOURS, INCUBATION TO CONTINUE FOR 1 DAYS. 09/21/18 20:20 Urine For Antigen Detection Legionella Antigen - Final 09/21/18 20:20 Urine For Antigen Detection Streptococcus pneumoniae Antigen (M - Final ASSESSMENT AND PLAN: Patient is 88 y/o lady with H/o Severe , CAD , s/p PCI, diverticular bleed, HTN, h/o PNA with resp failure in 2017 who presented with cough x 1 week # Acute b/l PNA. On rocephin 6/7needs one more day of IV , will continue the patient on medrol dose pack, off oxygen saturation 93%, negative Legionella/ pneumonia neg, blood cx neg to date, but was sent after Abx # New onset A fib: cont toprol , and eliquis #HTN: continue BB , resume nifedipine 30mg since BP is elevated # Severe : Echo reviewed . f/u as out pt # Lilian: s/p IVF, improved #Microcytosis : iron studies do not indicate iron def. Lead level is pending and Hb electropheresis follow as an outpatient #Lung nodule. need f/u with CT in 6 months discharge patient to rehab.
[2018-09-26] MEDS ORDERED: metoPROLOL SUCCINATE 25 MG TAB.SR.24H (FP) PO SCH (10:00)
[2018-09-26] MEDS ORDERED: NIFEdipine E.R. 30 MG TABLET (FP) PO SCH (10:00)
[2018-09-26 15:23] LABS: HGB SOLUBILITY Negative (Negative); Hgb A 98.2 % (96.4-98.8); Hgb C 0 % (0.0); Hgb F 0 % (0.0-2.0); Hgb S 0 % (0.0)
== END 2018-09-25 18:33 | DRG 193 ==
LOC: JER 15:20 → JERBED 18:42 → J6S 21:34 → J4W 09-22 01:26
PROVIDERS: ADMIT Internal Medicine; ATTEND Internal Medicine
DX: J18.1 Lobar pneumonia, unspecified organism (principal); J96.01 Acute respiratory failure with hypoxia; N17.9 Acute kidney failure, unspecified; I35.0 Nonrheumatic aortic (valve) stenosis; R91.1 Solitary pulmonary nodule; Z98.61 Coronary angioplasty status; D72.829 Elevated white blood cell count, unspecified; I12.9 Hypertensive chronic kidney disease with stage 1 through stage 4 chronic kidney disease, or unspecified chronic kidney disease; N18.2 Chronic kidney disease, stage 2 (mild); I48.0 Paroxysmal atrial fibrillation; I25.119 Atherosclerotic heart disease of native coronary artery with unspecified angina pectoris; E78.5 Hyperlipidemia, unspecified; D64.9 Anemia, unspecified
CPT/HCPCS: 36415; 36600; 71045-TC-FY; 71250-TC; 80048; 80053; 80061; 82550; 82728; 82803; 83021; 83036; 83540; 83550; 83605; 83655; 83721; 83735; 83880; 84100; 84443; 84484; 85025; 85027; 85610; 85660; 86738; 87040; 87804; 87899; 93005; 93010; 93306-TC; 94010; 94640; 94761; 97116-GP; 97161-GP; 99285-25; J1644; J7030

== ENCOUNTER 2018-10-10 16:29 | Observation (INO) | payer OTHER ==
--- NOTE | 2018-10-10 16:51 | PDOC ---
Attending Attestation - HPI HPI: 10/10/18 17:26 The patient is a 88 year old female with a significant past medical history of CAD (s/p stent 5 years ago), HTN, anemia, afib, and aortic stenosis who presents to the ED from her senior care for complaint of left shoulder pain and decreased ROM for 2 days. Patient is a poor historian. She denies trauma, injury, or fall. She states she can not lift her left arm secondary to pain. Secondarily, the patient reports a cough and was reportedly treated at [facility] for pneumonia earlier this month. 3 - Physicial Exam PE: 10/10/18 17:31 ROS: A complete review of 10 out of 10 review of systems is taken and is negative apart from what is previously mentioned below and in the HPI. Physical Exam : Vitals: Triage vital signs reviewed General Appearance: No acute distress, well nourished, well developed Head: Atraumatic Eyes: Pupils equal reactive round, extraocular movement intact Neck: Supple; No nuchal rigidity Chest Wall: Nontender Cardiac: Regular rate and rhythm, no murmurs, no rubs, no gallops Lungs: (+) crackles at left base. good air movement bilaterally Abdomen: Soft, nondistended, normal bowel sounds, nontender to palpation Extremities: (+) L shoulder is mildly tender on palpation with inability to range the shoulder secondary to pain. Full ROM at the Left elbow. no cyanosis, clubbing, or edema Skin: Warm and dry, no rashes or lesions, no rash, no petechiae Neuro: Cranial Nerves 2-12 grossly intact, Strength intact to all extremities, Sensation intact to all extremities, <Leigh Ann Blank - Last Filed: 10/10/18 22:05> - Resident Resident Name: Caroline Edmond - ED Attending Attestation I have performed the following: I have examined & evaluated the patient, The case was reviewed & discussed with the resident, I agree w/resident's findings & plan, Exceptions are as noted - Medical Decision Making 10/10/18 22:07 80 years old with flu shot to the left arm last week. She has been having shoulder pain since then she was seen at an outside emergency department had x- rays done which were unremarkable she presents with some swelling over her left shoulder difficulty with full range of motion but is neurovascularly intact distally She was sent to the ED for orthopedic consultation. An x-ray in the emergency department demonstrated no acute fracture dislocation a CAT scan confirmed this. An ESR and CRP were sent which were elevated Orthopedist attempted a shoulder tap with minimal retrieval of fluid Given elevated ESR CRP we'll admit to hospitalist for IV antibiotics continued orthopedic follow-up and management. 10/10/18 22:35 <Justin Warren - Last Filed: 10/11/18 01:21> Heart Score/ECG Review - ECG Impressions Comment:: 10/11/18 01:[address] elevations or T-wave inversions EKG unchanged from prior Interpreted by me. <Justin Warren - Last Filed: 10/11/18 01:21> Attestations - Attestations 10/10/18 17:37 Documentation prepared by Leigh Ann Blank, acting as back office medical assistant for Justin Warren MD <Leigh Ann Blank - Last Filed: 10/10/18 22:05>
--- NOTE | 2018-10-10 17:14 | PDOC ---
History of Present Illness - General Chief Complaint: Pain Stated Complaint: SHOULDER PAIN Time Seen by Provider: 10/10/18 16:44 - History of Present Illness Initial Comments: 10/10/18 17:06 Patient is a 88 y/o female with a history of CAD ( s/p stent 5 years ago), HTN, anemia, afib, and aortic stenosis who presents from her fpc for left shoulder pain and cough. Patient is a poor historian. Patient came in with a sheet from home saying that she has a lump on her left shoulder and pain. She recently went to [facility] for evaluation where they did Xrays and sent her home on oxycodone. Patient was recently hospitalized a couple weeks ago and treated for a pneumonia. Patient reports she still has a cough that bothers her at night. She denies fevers and chills. Patient has pain in her shoulder. No other complaints. 10/10/18 17:44 Spoke to patients daughter who stated pain began last after receiving the Pneumoccocal vaccine and flu shot. The bump on her arm developed after and did not get better over the past week. Past History - Past Medical History Allergies/Adverse Reactions: Allergies Allergy/AdvReac Type Severity Reaction Status Date / Time No Known Allergies Allergy Verified 09/20/18 15:32 Home Medications: Ambulatory Orders Albuterol Sulfate 0.042% [Ventolin 0.042% (Half-Strength) -] 1 amp NEB Q4H PRN amp 09/25/18 Apixaban [Eliquis -] 2.5 mg PO BID tablet 09/25/18 Atorvastatin Ca [Lipitor] 20 mg PO HS tablet 09/25/18 Metoprolol Succinate [Toprol XL -] 25 mg PO DAILY 10/10/18 Nifedipine ER [Procardia XL -] 60 mg PO DAILY 10/10/18 Anemia: Yes Cardiac Disorders: Yes (Mitral valve stenosis, 1 Stent, CAD) COPD: No HTN: Yes - Surgical History Appendectomy: Yes Cardiac Surgery: Yes (stent x 5 years ago) Orthopedic Surgery: Yes (BILATERAL HIP REPLACEMENT) - Immunization History Td Vaccination: Yes Immunization Up to Date: Yes - Suicide/Smoking/Psychosocial Hx Smoking Status: No Smoking History: Never smoked Years of Tobacco Use: 0 Have you smoked in the past 12 months: No Number of Cigarettes Smoked Daily: 0 Cigars Per Day: 0 Information on smoking cessation initiated: No Hx Alcohol Use: No Drug/Substance Use Hx: No Substance Use Type: None Hx Substance Use Treatment: No Review of Systems - Review of Systems Constitutional: No: Chills, Fever HEENTM: No: Eye Pain Respiratory: Yes: Cough. No: Shortness of Breath Cardiac (ROS): No: Chest Pain ABD/GI: No: Abdominal Distended, Diarrhea, Nausea, Vomiting Musculoskeletal: Yes: Joint Pain *Physical Exam - Vital Signs Last Vital Signs Temp Pulse Resp BP Pulse Ox 98.2 F 88 20 104/59 L 90 L 10/10/18 16:32 10/10/18 16:32 10/10/18 16:32 10/10/18 16:32 10/10/18 16:32 - Physical Exam Comments: 10/10/18 17:47 GENERAL: awake and alert, no acute distress HEART: regular, 3/6 systolic murmur at upper sternal border LUNGS: CTAL ABD: soft, non tender, non distended EXTREMITIES: bump over left shoulder, poor range of motion unable to abduct SKIN: no ulcers or rashes noted ED Treatment Course - LABORATORY CBC & Chemistry Diagram: 10/11/18 06:09 10/11/18 06:09 - RADIOLOGY Radiology Studies Ordered: Category Date Time Status CXRPORT [CHEST X-RAY PORTABLE*] [RAD] Stat Radiology 10/10/18 17:03 Ordered Medical Decision Making - Medical Decision Making 10/10/18 18:00 Xray not indicative of dislocated shoulder CBC WNL, f/u other labs f/u CT scan of left shoulder, spoke with Ortho Dr. Barr f.u ESR and CRP, if elevated with + CT scan will likely need effusion over left shoulder to be tapped *DC/Admit/Observation/Transfer Diagnosis at time of Disposition: Elevated C-reactive protein (CRP), Elevated erythrocyte sedimentation rate Left shoulder pain Qualifiers: Chronicity: acute Qualified Code(s): M25.512 - Pain in left shoulder - Discharge Dispostion Condition at time of disposition: Good - Referrals - Patient Instructions - Post Discharge Activity
[2018-10-10 17:47] LABS: BASO % 0.8 % (0-2.0); EOS % 2.3 % (0-4.5); HEMATOCRIT 38.8 % (32.4-45.2); HEMOGLOBIN 12.1 GM/dL (10.7-15.3); LYMPH % 13.1 % (8-40); MCH 20.9 pg (25.7-33.7); MCHC 31.2 g/dl (32.0-36.0); MEAN CELL VOLUME 66.9 fl (80-96); MEAN PLT VOLUME 7.8 fl (7.5-11.1); MONO % 7.4 % (3.8-10.2); NEUT % 76.4 % (42.8-82.8); PLATELET COUNT 294 K/MM3 (134-434); RBC 5.79 M/mm3 (3.60-5.2); RDW 15.7 % (11.6-15.6); WHITE BLOOD COUNT 9.1 K/mm3 (4.0-10.0)
--- NOTE | 2018-10-10 17:57 | CONSULT ---
Consult - text type - Consultation Consultation Note: ORTHOPEDIC SURGERY CONSULTATION NOTE Department of Orthopedic Surgery HISTORY OF PRESENT ILLNESS Ms. Saavedra is an 88 year old female with a history of CAD ( s/p stent 5 years ago), HTN, anemia, afib, and aortic stenosis [facility] and cough. Patient is a poor historian. Patient came in with a sheet from home saying that she has a lump on her left shoulder and pain. She recently went to [facility] for evaluation where they did Xrays and sent her home on oxycodone. Patient was recently hospitalized a couple weeks ago and treated for a pneumonia. Patient reports she still has a cough that bothers her at night. She denies fevers and chills. Patient has pain in her shoulder. No other complaints. The patient's daughter is a nurse who discussed with the ER resident and stated that the patient's pain began last after receiving the Pneumoccocal vaccine and flu shot. The bump on her arm developed after and did not get better over the past week. The orthopedic service was consulted for left shoulder pain. Patient and daughter deny any trauma to left upper extremity. The patient notes pain in the anterior portion of her left shoulder. Denies any other injuries. Denies numbness, tingling or other constitutional complaints. Denies tobacco use, drug use, alcohol abuse. FAMILY HISTORY non-contributory REVIEW OF SYMPTOMS A twelve-point review of systems was performed and was negative except as noted in HPI. PHYSICAL EXAM Constitutional: Alert and oriented to person, place, and time. Appears well- developed and well-nourished. No acute distress, appropriate mood and affect. Right Upper Extremity: Skin warm, dry, and intact; no lesions, rashes or ulcers noted. Muscle mass equal and symmetric to contralateral side. No atrophy noted. No masses or effusions noted. No tenderness to palpation all joints; nontender throughout rest of extremity. Full passive and active ROM, free from pain. Joints stable with no pathologic laxity. M/R/U/MSK/AX motor intact; SILT distally; 2+ radial pulses; Cap refill brisk. Tone and reflexes normal. Left Upper Extremity: Skin dry, and intact; no lesions, rashes or ulcers noted. No erythema or warmth. Muscle mass equal and symmetric to contralateral side. No atrophy noted. No masses or effusions noted. Tender to palpation at the anterior portion of the shoulder where there is an area of swelling 4x4cm lateral to the corcoid process. Nontender throughout rest of extremity. LROM of the left shoulder secondary to pain. Joints stable with no pathologic laxity. M/ R/U/MSK/AX motor intact; SILT distally; 2+ radial pulses; Cap refill brisk. Tone and reflexes normal. Right Lower Extremity: Skin warm, dry, and intact; no lesions, rashes or ulcers noted. Muscle mass equal and symmetric to contralateral side. No atrophy noted. No masses or effusions noted. No tenderness to palpation all joints; nontender throughout rest of extremity. No cords or calf tenderness No significant calf/ankle edema. Full passive and active ROM, free from pain. Joints stable with no pathologic laxity. EHL/TA/GS motor intact; SILT distally; 2+ DP pulses; Cap refill brisk. Tone and reflexes normal. Able to SLR; negative log roll. Left Lower Extremity: Skin warm, dry, and intact; no lesions, rashes or ulcers noted. Muscle mass equal and symmetric to contralateral side. No atrophy noted. No masses or effusions noted. No tenderness to palpation all joints; nontender throughout rest of extremity. No cords or calf tenderness No significant calf/ankle edema. Full passive and active ROM, free from pain. Joints stable with no pathologic laxity. EHL/TA/GS motor intact; SILT distally; 2+ DP pulses; Cap refill brisk. Tone and reflexes normal. Able to SLR; negative log roll. Past Medical History Cardio/Vascular CAD,HTN,Hyperlipdemia Heme/Onc Anemia Past Surgical History Past Surgical History Appendectomy Social History Smoking history Never smoked Aproximately how many 0 cigarettes per day Hx Alcohol Use No Allergies Allergy/AdvReac Type Severity Reaction Status Date / Time No Known Allergies Allergy Verified 09/20/18 15:32 Vital Signs (last) Temp Pulse Resp BP Pulse Ox 98.2 F 88 20 104/59 L 90 L 10/10/18 16:32 10/10/18 16:32 10/10/18 16:32 10/10/18 16:32 10/10/18 16:32 Intake and Output 10/08/18 10/09/18 10/10/18 23:59 23:59 23:59 Other: Weight 114 lb 6.4 oz Height 5 ft Body Mass Index (BMI) 22.3 Weight Measurement Method Est/Stated by Patient Laboratory 10/10/18 17:30 ESR: 68 CRP: 22.3 IMAGING I personally reviewed all radiographs and CT scans. They demonstrate left shoulder osteoarthritic degenerative changes, with anterior shoulder swelling that's superficial in nature, and what looks to be a fluid collection anteriorly. No signs of dislocation or fracture or bony lesions. ASSESSMENT AND PLAN Ms. Saavedra is a 88 year old female presenting with left shoulder pain. We have reviewed the imaging and clinical findings in detail, as well as their potential implications and agreed on the following plan: - Pain Control - DVT prophylaxis - Follow up CT Scan Left shoulder report - Follow up X-ray final report - Follow up culture and gram stain of fluid aspirate - Will follow closely - Recommend Urine Culture and Blood cultures - IV fluids PROCEDURE NOTE: Left shoulder fluid collection aspiration Indication : Rule out septic left shoulder Consent : obtained The patient was identified by the physician and the aspiration site verified using ultrasound guidance. History and physical have been reviewed and all systems are negative unless otherwise noted. After the patient was properly identified, consent was obtained and allergies were reviewed. The patient was taken to the treatment room and placed in a sitting position with the left shoulder supported. Using strict aseptic technique, the left shoulder was prepped with betadine swabs. 0.5cc's of serosanguinous fluid was aspirated with an 18 gauge needle. The patient tolerated the procedure well, was allowed to rest in a sitting position. The patients post aspiration status is satisfactory. Specimen sent for culture. Findings are represented by preoperative and postoperative diagnoses. There were no unexpected findings. No blood products were administered. No unusual events were encountered. The procedure was performed as described here. All questions were answered. Thank you for involving our team in the care of this patient. We will follow the patient with you. Please call us at with questions.
[2018-10-10 18:52] LABS: ALBUMIN 2.7 g/dl (3.4-5.0); ALK PHOS 88 U/L (45-117); ANION GAP 7 MMOL/L (8-16); BILIRUBIN,TOTAL 0.4 mg/dL (0.2-1); BLOOD UREA NITROGEN 28 mg/dL (7-18); CALCIUM 8.7 mg/dL (8.5-10.1); CHLORIDE 99 mmol/L (98-107); CO2 29 mmol/L (21-32); CREATININE 1.3 mg/dL (0.55-1.3); GLUCOSE,RANDOM 125 mg/dL (74-106); POTASSIUM 5.4 mmol/L (3.5-5.1); SGOT/AST 62 U/L (15-37); SGPT/ALT 16 U/L (13-61); SODIUM 135 mmol/L (136-145); TOT PROT 7.3 g/dl (6.4-8.2)
[2018-10-10] MEDS ORDERED: PIPERACILLIN/TAZOB 2.25 GM 2.25 GM in DEXTROSE 5%-WATER - 50 ML IVPB ONE (20:03)
[2018-10-10] MEDS ORDERED: VANCOMYCIN 1,000 MG in DEXTROSE 5%-WATER - 250 ML IVPB ONE (20:03)
--- NOTE | 2018-10-10 20:20 | PDOC ---
*Physical Exam - Vital Signs Last Vital Signs Temp Pulse Resp BP Pulse Ox 98.2 F 88 20 104/59 L 90 L 10/10/18 16:32 10/10/18 16:32 10/10/18 16:32 10/10/18 16:32 10/10/18 16:32 ED Treatment Course - LABORATORY CBC & Chemistry Diagram: 10/10/18 17:30 10/10/18 17:13 - ADDITIONAL ORDERS Additional order review: Laboratory Results 10/10/18 10/10/18 17:42 17:13 PTT (Actin FS) 41.6 H Sodium 135 L Potassium 5.4 H Chloride 99 Carbon Dioxide 29 Anion Gap 7 L BUN 28 H Creatinine 1.3 Creat Clearance w eGFR 38.66 Random Glucose 125 H Calcium 8.7 Total Bilirubin 0.4 AST 62 H ALT 16 Alkaline Phosphatase 88 C-Reactive Protein 22.3 H Total Protein 7.3 Albumin 2.7 L 10/10/18 17:30 RBC 5.79 H MCV 66.9 L MCHC 31.2 L RDW 15.7 H MPV 7.8 D Neutrophils % 76.4 D Lymphocytes % 13.1 D Monocytes % 7.4 Eosinophils % 2.3 Basophils % 0.8 Medical Decision Making - Medical Decision Making 10/10/18 19:00 Received sign out from resident Dr. Edmond. In short, pt is a 88 y /o female with multiple comorbidities presenting for left shoulder pain. Pt is from [facility] in [place], [place]. PCP is Dr. Eleazar Navarrete. Was evaluated at a [facility] facility for similar symptoms and discharged with reportedly unremarkable workup. Pts ESR and CRP were both found to be elevated. However, pt is afebrile, normocardic, and normotensive. Dr. Barr of ortho service is in the process of evaluating the pt. Dr. Barr performed arthrocentesis in ED. Lab evaluation pending. Would like pt admitted for observation for possible septic joint. Vancomycin and Zosyn ordered for broad spectrum antibiotics. Telephone consultation with resident Dr. Barney. Verbally appraised of the pt s HPI, ED course, and current plan of management. Will admit the pt to med/surg on observational status for Dr. Almonte. *DC/Admit/Observation/Transfer Diagnosis at time of Disposition: Elevated C-reactive protein (CRP), Elevated erythrocyte sedimentation rate Left shoulder pain Qualifiers: Chronicity: acute Qualified Code(s): M25.512 - Pain in left shoulder - Discharge Dispostion Condition at time of disposition: Good Decision to Admit order: Yes - Referrals - Patient Instructions - Post Discharge Activity
--- NOTE | 2018-10-10 20:56 | PN ---
Teaching Attending Note Name of Resident: Alexsandra Barney ATTENDING PHYSICIAN STATEMENT I saw and evaluated the patient. I reviewed the resident's note and discussed the case with the resident. I agree with the resident's findings and plan as documented. SUBJECTIVE: Patient is an 88 year old woman with a significant past medical history of CAD ( s/p stent 5 years ago), HTN, anemia, afib, bilateral hip replacement and aortic stenosis who [facility] ED from [facility] for complaint of left shoulder pain and decreased ROM for about 7 days. Says it started after injection of Flu and pneumovax to the anterior left shoulder. Daughter says she got the same vaccines last May. She denies trauma, injury, or fall. She states she can not lift her left arm secondary to pain. Secondarily, the patient reports a cough and was reportedly treated at [facility] for pneumonia earlier this month. OBJECTIVE: Alert Vital Signs Period Temp Pulse Resp BP Sys/Patel Pulse Ox Last 24 Hr 98.2 F 88 20 104/59 90 HEENT: No Jaundice, eye redness or discharge, PERRLA, EOMI. Normocephalic, atraumatic. External ears are normal and hearing is grossly intact. No nasal discharge. Neck: Supple, nontender. No palpable adenopathy or thyromegaly. No JVD Chest: Good effort. Clear to auscultation and percussion. Heart: Irregularly irregular. No S3 or rub; 3/6 AZUL Abdomen: Not distended, soft, nontender and no HSM. No rebound or guarding. Normal bowel sounds. Ext: Peripheral pulses intact. No leg edema. Swelling on anterior aspect of left shoulder, no erythema, not warm, tender with limited ROM and pain with any movement. Skin: Warm and dry. No petechiae, rash or ecchymosis. Neuro: Alert. Oriented x3. CN 2-12 grossly intact. Sensation grossly intact in all four extremities and DTR are symmetric. Psych: Appropriate mood and affect. Good insight. Current Medications Generic Name Dose Route Start Last Admin Trade Name Freq PRN Reason Stop Dose Admin Vancomycin HCl 1,000 mg/ 250 mls @ 250 mls/hr 10/10/18 20:03 Dextrose IVPB 10/10/18 21:02 ONCE ONE Protocol Home Medications Medication Instructions Recorded Albuterol Sulfate 0.042% [Ventolin 1 amp NEB Q4H PRN amp 03/14/19 0.042% (Half-Strength) -] Apixaban [Eliquis -] 2.5 mg PO BID tablet 09/25/18 Atorvastatin Ca [Lipitor] 20 mg PO HS tablet 09/25/18 Metoprolol Succinate [Toprol XL -] 25 mg PO DAILY 10/10/18 Nifedipine ER [Procardia XL -] 60 mg PO DAILY 10/10/18 Abnormal Lab Results 10/10/18 10/10/18 10/10/18 17:13 17:30 17:42 RBC 5.79 H MCV 66.9 L MCH 20.9 L MCHC 31.2 L RDW 15.7 H ESR PTT (Actin FS) 41.6 H Sodium 135 L Potassium 5.4 H Anion Gap 7 L BUN 28 H Random Glucose 125 H AST 62 H C-Reactive Protein 22.3 H Albumin 2.7 L 10/10/18 17:52 RBC MCV MCH MCHC RDW ESR 68 H PTT (Actin FS) Sodium Potassium Anion Gap BUN Random Glucose AST C-Reactive Protein Albumin ASSESSMENT AND PLAN: 1. Left shoulder bursitis - CT scan showed fluid collection within subdeltoid bursa anteriorly. Seen by Ortho in the ER and a small sample of the ?fluid was sent for culture. Patient started on vancomycin, but septic arthritis unlikely. Will apply warm compress, lidocaine patch and consult ID. 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 Continue Eliquis and Toprol XL for Afib. EKG pending. 2. Hypoalbuminemia - Possibly due to combined effects of malnutrition and inflammation associated with comorbid chronic conditions. Will ensure adequate dietary protein intake and also consult gis mapping technician. 3. Hypertension - Restart outpatient antihypertensive drugs and revise regimen to ensure smooth [id number] good BP control. Nonpharmacologic measures to control hypertension like weight loss, salt restriction and exercise discussed. 4. DVT prophylaxis - On Eliquis for Afib 5. Advance directives - Full code
[2018-10-10] MEDS ORDERED: VANCOMYCIN 1 GRAM (PRE-DOCKED) 1,000 MG/250 ML BAG IVPB ONE (21:10)
[2018-10-10] MEDS ORDERED: PIPERACILLIN/TAZOB 2.25 GM 2.25 GM/50 ML BAG IVPB ONE (21:10)
[2018-10-10] MEDS ORDERED: ALBUTEROL SO4 0.042% IH SOL 1.25 MG/3 ML VIAL.NEB NEB PRN (21:19)
--- NOTE | 2018-10-10 21:22 | HP ---
CHIEF COMPLAINT: left shoulder pain PCP: Dr Zafar Navarrete HISTORY OF PRESENT ILLNESS: 88 y/o female with PMH of CAD (s/p stent 5 years ago), HTN, afib, anemia, aortic stenosis who presented to the ED with complaints of L shoulder pain. Patient states that the pain started last week on after she received the flu and pnuemonia vaccine. Ever since then the shoudler has been very painful; its very painful to touch, its hard for her to lift the arm without supporting it. She went to [facility] yesterday who discharged her home after doing Xxryas with oxycodone however she is still in a lot of pain. she denies any fevers or any trauma to the area aside from the vaccinations ; she states that tylenol has helped slightly ER course was notable for: (1)vitals wnl; K+ 5.4, ESR 66 CRP 22.3 (2)shoulder XRAY shows no fracture; CT shows area of fluid accumulation (3)ortho tapped shoulder Recent Travel: denies PAST MEDICAL HISTORY: see above PAST SURGICAL HISTORY: stebt; B/L hip replacement Social History: Smoking:denies Alcohol:denies Drugs: denies Family History:denies Allergies No Known Allergies Allergy (Verified 09/20/18 15:32) HOME MEDICATIONS: Home Medications Medication Instructions Recorded Albuterol Sulfate 0.042% [Ventolin 1 amp NEB Q4H PRN amp 09/25/18 0.042% (Half-Strength) -] Apixaban [Eliquis -] 2.5 mg PO BID tablet 09/25/18 Atorvastatin Ca [Lipitor] 20 mg PO HS tablet 09/25/18 Metoprolol Succinate [Toprol XL -] 25 mg PO DAILY 10/10/18 Nifedipine ER [Procardia XL -] 60 mg PO DAILY 10/10/18 REVIEW OF SYSTEMS CONSTITUTIONAL: Absent: fever, chills, diaphoresis, generalized weakness, malaise, loss of appetite, weight change HEENT: Absent: rhinorrhea, nasal congestion, throat pain, throat swelling, difficulty swallowing, mouth swelling, ear pain, eye pain, visual changes CARDIOVASCULAR: Absent: chest pain, syncope, palpitations, irregular heart rate, lightheadedness , peripheral edema RESPIRATORY: Absent: cough, shortness of breath, dyspnea with exertion, orthopnea, wheezing, stridor, hemoptysis GASTROINTESTINAL: Absent: abdominal pain, abdominal distension, nausea, vomiting, diarrhea, constipation, melena, hematochezia GENITOURINARY: Absent: dysuria, frequency, urgency, hesitancy, hematuria, flank pain, genital pain MUSCULOSKELETAL: Present: myalgia, joint swelling Absent: , arthralgia, , back pain, neck pain SKIN: Absent: rash, itching, pallor HEMATOLOGIC/IMMUNOLOGIC: Absent: easy bleeding, easy bruising, lymphadenopathy, frequent infections ENDOCRINE: Absent: unexplained weight gain, unexplained weight loss, heat intolerance, cold intolerance NEUROLOGIC: Absent: headache, focal weakness or paresthesias, dizziness, unsteady gait, seizure, mental status changes, bladder or bowel incontinence PSYCHIATRIC: Absent: anxiety, depression, suicidal or homicidal ideation, hallucinations. PHYSICAL EXAMINATION Vital Signs - 24 hr 10/10/18 16:32 Temperature 98.2 F Pulse Rate 88 Respiratory 20 Rate Blood Pressure 104/59 L O2 Sat by Pulse 90 L Oximetry (%) GENERAL: Awake, alert, and fully oriented, in no acute distress. EYES: PEERLA: EOMI: no scleral icterus . NECK: no JVD; no lymphadenopathy LUNGS: slight crackles at the L base HEART: Regular rate and rhythm, normal S1 and S2 3/6 sys murmur at L upper sternal border ABDOMEN: Soft, nontender, not distended, normoactive bowel sounds, no guarding, no rebound, no masses. No hepatomegaly or splenomegaly. MUSCULOSKELETAL: Normal range of motion at all joints. No bony deformities or tenderness. No CVA tenderness. UPPER EXTREMITIES:L extremity: shoulder tender to palpation; non-erytheamtous not warm to touch' decreased passive and active ROM. LOWER EXTREMITIES: 2+ pulses, warm, well-perfused. No calf tenderness. No peripheral edema. . PSYCHIATRIC: Cooperative. Good eye contact. Appropriate mood and affect. SKIN: Warm, dry, normal turgor, no rashes or lesions noted, normal capillary refill. Laboratory Results - last 24 hr 10/10/18 10/10/18 10/10/18 17:13 17:30 17:42 WBC 9.1 RBC 5.79 H Hgb 12.1 Hct 38.8 MCV 66.9 L MCH 20.9 L MCHC 31.2 L RDW 15.7 H Plt Count 294 D MPV 7.8 D Absolute Neuts (auto) 7.0 Neutrophils % 76.4 D Lymphocytes % 13.1 D Monocytes % 7.4 Eosinophils % 2.3 Basophils % 0.8 Nucleated RBC % 0 Hypochromia 1+ Microcytosis 1+ ESR PTT (Actin FS) 41.6 H Sodium 135 L Potassium 5.4 H Chloride 99 Carbon Dioxide 29 Anion Gap 7 L BUN 28 H Creatinine 1.3 Creat Clearance w eGFR 38.66 Random Glucose 125 H Calcium 8.7 Total Bilirubin 0.4 AST 62 H ALT 16 Alkaline Phosphatase 88 C-Reactive Protein 22.3 H Total Protein 7.3 Albumin 2.7 L 10/10/18 17:52 WBC RBC Hgb Hct MCV MCH MCHC RDW Plt Count MPV Absolute Neuts (auto) Neutrophils % Lymphocytes % Monocytes % Eosinophils % Basophils % Nucleated RBC % Hypochromia Microcytosis ESR 68 H PTT (Actin FS) Sodium Potassium Chloride Carbon Dioxide Anion Gap BUN Creatinine Creat Clearance w eGFR Random Glucose Calcium Total Bilirubin AST ALT Alkaline Phosphatase C-Reactive Protein Total Protein Albumin ASSESSMENT/PLAN: 88 y/o female with PMH of CAD, Afib, HTN, anemia who presents with L shoulder pain of one week duration #Left Shoulder pain xray shows no fracture; CT shows area of fluid collection f/u gram stain and cell count from fluid warm compress lidocaine patch tylenol PRN for pain #Afib c/w eliquis 2.5 BID Toprol 25 daily #HTN c/w nifedipine 60 daily #HLD c/w home meds F/E/N not on fluids monitor electrolytes sodium controlled diet DV PPX: eliquis dispo: obs- med/surg Problem List - Problem (1) Elevated C-reactive protein (CRP) Code(s): R79.82 - ELEVATED C-REACTIVE PROTEIN (CRP) (2) Elevated erythrocyte sedimentation rate Code(s): R70.0 - ELEVATED ERYTHROCYTE SEDIMENTATION RATE (3) Left shoulder pain Code(s): M25.512 - PAIN IN LEFT SHOULDER Qualifiers: Chronicity: acute Qualified Code(s): M25.512 - Pain in left shoulder (4) Aortic stenosis Code(s): I35.0 - NONRHEUMATIC AORTIC (VALVE) STENOSIS Qualifiers: Cardiac valve disease etiology: nonrheumatic Qualified Code(s): I35.0 - Nonrheumatic aortic (valve) stenosis (5) Atrial fibrillation with controlled ventricular rate Code(s): I48.91 - UNSPECIFIED ATRIAL FIBRILLATION Visit type - Emergency Visit Emergency Visit: Yes ED Registration Date: 10/10/18 Care time: The patient presented to the Emergency Department on the above date and was hospitalized for further evaluation of their emergent condition. - New Patient This patient is new to me today: Yes Date on this admission: 10/10/18 - Critical Care Critical Care patient: No
[2018-10-10] MEDS: ATORVASTATIN CA 20 MG TABLET (FP) PO SCH (23:50)
[2018-10-10] MEDS: APIXABAN 2.5 MG TABLET PO SCH (23:50)
[2018-10-11 01:13] VITALS: BMI 25.9
[2018-10-11 02:33] LABS: URINE APPEARANCE CLEAR; URINE BILIRUBIN NEGATIVE (NEGATIVE); URINE COLOR YELLOW; URINE GLUCOSE (UA) NEGATIVE (NEGATIVE); URINE KETONE NEGATIVE (NEGATIVE); URINE LEUK ESTERASE NEGATIVE (NEGATIVE); URINE NITRITE NEGATIVE (NEGATIVE); URINE PROTEIN NEGATIVE (NEGATIVE); URINE UROBILINOGEN 0.2 mg/dL (0.2-1.0)
[2018-10-11 08:32] LABS: BASO % 0.9 % (0-2.0); EOS % 5.3 % (0-4.5); HEMOGLOBIN 10.5 GM/dL (10.7-15.3); LYMPH % 25.2 % (8-40); MCH 21.2 pg (25.7-33.7); MCHC 31.8 g/dl (32.0-36.0); MEAN CELL VOLUME 66.9 fl (80-96); MEAN PLT VOLUME 8.2 fl (7.5-11.1); MONO % 8.6 % (3.8-10.2); PLATELET COUNT 234 K/MM3 (134-434); RBC 4.93 M/mm3 (3.60-5.2); RDW 15.1 % (11.6-15.6)
[2018-10-11 08:44] LABS: INR 1.38 (0.83-1.09); PROTHROMBIN TIME (PATIENT) 16.3 SEC (9.7-13.0)
[2018-10-11 09:07] LABS: ALBUMIN 2.4 g/dl (3.4-5.0); ALK PHOS 79 U/L (45-117); ANION GAP 9 MMOL/L (8-16); BILIRUBIN,TOTAL 0.5 mg/dL (0.2-1); BLOOD UREA NITROGEN 26 mg/dL (7-18); CHLORIDE 102 mmol/L (98-107); CO2 27 mmol/L (21-32); CREATININE 1.1 mg/dL (0.55-1.3); GLUCOSE,RANDOM 96 mg/dL (74-106); MAGNESIUM 2.5 mg/dL (1.8-2.4); POTASSIUM 3.8 mmol/L (3.5-5.1); SGOT/AST 23 U/L (15-37); SGPT/ALT 11 U/L (13-61); SODIUM 138 mmol/L (136-145)
[2018-10-11] MEDS: NIFEdipine E.R. 30 MG TABLET (FP) PO SCH (09:14)
[2018-10-11] MEDS: APIXABAN 2.5 MG TABLET PO SCH ×2 (09:14→21:24)
[2018-10-11] MEDS: metoPROLOL SUCCINATE 25 MG TAB.SR.24H (FP) PO SCH (09:14)
[2018-10-11] MEDS: LIDOCAINE 5% TOPICAL PATCH TP SCH (09:16)
[2018-10-11] MEDS ORDERED: NIFEdipine E.R 60 MG TABLET (UD) PO SCH (10:00)
--- NOTE | 2018-10-11 10:01 | PN ---
Progress Note (short form) - Note Progress Note: ORTHOPEDIC SURGERY PROGRESS NOTE Department of Orthopedic Surgery SUBJECTIVE No acute events overnight. Still complaining of left shoulder pain and decreased ROM; Denies chest pain, shortness of breath, or calf pain. No nausea or vomiting. Tolerating oral intake. Pain control difficult overnight, but improving. PHYSICAL EXAMINATION General: Alert, oriented, cooperative and no distress. Left Upper Extremity: Skin dry, and intact; no lesions, rashes or ulcers noted. No erythema or warmth. Muscle mass equal and symmetric to contralateral side. No atrophy noted. No masses or effusions noted. Tender to palpation at the anterior portion of the shoulder where there is an area of swelling - now slightly improved lateral to the corocoid process. Nontender throughout rest of extremity. LROM of the left shoulder secondary to pain. Joints stable with no pathologic laxity. M/R/U/MSK/AX motor intact; SILT distally; 2+ radial pulses; Cap refill brisk. Tone and reflexes normal. Intake & Output 10/09/18 10/10/18 10/11/18 23:59 23:59 23:59 Other: Voiding Method Toilet # Unmeasured Voids Void 1 Weight 114 lb 6.4 oz 133 lb Height 5 ft 5 ft Body Mass Index (BMI) 22.3 25.9 Weight Measurement Method Est/Stated by Patient Active Medications Generic Name Dose Route Start Last Admin Trade Name Freq PRN Reason Stop Dose Admin Acetaminophen 500 mg 10/10/18 23:02 Tylenol - PO Q6H PRN PAIN LEVEL 1-5 Albuterol Sulfate 1 amp 10/10/18 21:19 Ventolin 0.042trength) - NEB Q4H PRN SHORT OF BREATH/WHEEZING Apixaban 2.5 mg 10/10/18 22:00 10/11/18 09:14 Eliquis - PO 2.5 mg BID HOANG Administration Atorvastatin Calcium 20 mg 10/10/18 22:00 10/10/18 23:50 Lipitor - PO 20 mg HS HOANG Administration Lidocaine 1 patch 10/11/18 10:00 10/11/18 09:16 Lidoderm Patch - TP 1 patch DAILY HOANG Administration Metoprolol Succinate 25 mg 10/11/18 10:00 10/11/18 09:14 Toprol Xl - PO 25 mg DAILY HOANG Administration Miscellaneous 1 each 10/11/18 22:00 Lidoderm Patch Removal MC DAILY@2200 HOANG Nifedipine 60 mg 10/11/18 10:00 10/11/18 09:14 Procardia Xl - PO 60 mg DAILY HOANG Administration Vital Signs (last) Temp Pulse Resp BP Pulse Ox 98.2 F 82 18 120/60 97 10/11/18 07:00 10/11/18 07:00 10/11/18 07:00 10/11/18 07:00 10/11/18 05:18 Laboratory (coagulation) PT with INR 16.30 SEC (9.7-13.0) H 10/11/18 06:09 Laboratory 10/11/18 06:09 10/11/18 06:09 ASSESSMENT AND PLAN Ms. Saavedra is a 88 year old female presenting with left shoulder pain. We have reviewed the imaging and clinical findings in detail, as well as their potential implications and agreed on the following plan: - Pain Control - DVT prophylaxis - Follow up culture and gram stain of fluid aspirate - Follow up Urine Culture and Blood cultures - Will follow closely
--- NOTE | 2018-10-11 11:50 | PN ---
Progress Note (short form) - Note Progress Note: Patient is a 88 y/o female with PMHx of CAD (s/p stent 5 years ago), HTN, afib, anemia, aortic stenosis who presented to the ED with complaints of L shoulder pain. Patient stated that the pain started last week on after she received the flu and pnuemonia vaccine. Vital Signs Temperature 98.2 F 10/11/18 07:00 Pulse Rate 82 10/11/18 07:00 Respiratory Rate 18 10/11/18 07:00 Blood Pressure 120/60 10/11/18 07:00 O2 Sat by Pulse Oximetry (%) 97 10/11/18 05:18 Initial Vital Signs Temp Pulse Resp BP Pulse Ox 98.2 F 88 20 104/59 L 90 L 10/10/18 16:32 10/10/18 16:32 10/10/18 16:32 10/10/18 16:32 10/10/18 16:32 GENERAL: The patient is awake, alert, and fully oriented, in no acute distress. HEAD: Normal with no signs of trauma. EYES: PERRL, extraocular movements intact, sclera anicteric, conjunctiva clear. ENT: Ears normal, oropharynx clear without exudates, moist mucous membranes. NECK: Trachea midline, full range of motion, supple. LUNGS: Breath sounds equal, clear to auscultation bilaterally, no wheezes, no crackles, no accessory muscle use. HEART: Regular rate and rhythm, S1, S2 without murmur, rub or gallop. ABDOMEN: Soft, nontender, nondistended, normoactive bowel sounds, no guarding, no rebound, no hepatosplenomegaly, no masses. EXTREMITIES: 2+ pulses, warm, well-perfused, no edema. NEUROLOGICAL: Cranial nerves II through XII grossly intact. Normal speech, gait not observed. PSYCH: Normal mood, normal affect. SKIN: Warm, dry, normal turgor, no rashes or lesions noted CBCD WBC 8.0 K/mm3 (4.0-10.0) 10/11/18 06:09 RBC 4.93 M/mm3 (3.60-5.2) 10/11/18 06:09 Hgb 10.5 GM/dL (10.7-15.3) L 10/11/18 06:09 Hct 33.0 % (32.4-45.2) 10/11/18 06:09 MCV 66.9 fl (80-96) L 10/11/18 06:09 MCHC 31.8 g/dl (32.0-36.0) L 10/11/18 06:09 RDW 15.1 % (11.6-15.6) 10/11/18 06:09 Plt Count 234 K/MM3 (134-434) D 10/11/18 06:09 MPV 8.2 fl (7.5-11.1) 10/11/18 06:09 CMP Sodium 138 mmol/L (136-145) 10/11/18 06:09 Potassium 3.8 mmol/L (3.5-5.1) 10/11/18 06:09 Chloride 102 mmol/L (98-107) 10/11/18 06:09 Carbon Dioxide 27 mmol/L (21-32) 10/11/18 06:09 Anion Gap 9 MMOL/L (8-16) 10/11/18 06:09 BUN 26 mg/dL (7-18) H 10/11/18 06:09 Creatinine 1.1 mg/dL (0.55-1.3) 10/11/18 06:09 Creat Clearance w eGFR 46.88 (>60) 10/11/18 06:09 Random Glucose 96 mg/dL (74-106) 10/11/18 06:09 Calcium 8.0 mg/dL (8.5-10.1) L 10/11/18 06:09 Total Bilirubin 0.5 mg/dL (0.2-1) 10/11/18 06:09 AST 23 U/L (15-37) 10/11/18 06:09 ALT 11 U/L (13-61) L 10/11/18 06:09 Alkaline Phosphatase 79 U/L (45-117) 10/11/18 06:09 Total Protein 6.0 g/dl (6.4-8.2) L 10/11/18 06:09 Albumin 2.4 g/dl (3.4-5.0) L 10/11/18 06:09 Current Medications Generic Name Dose Route Start Last Admin Trade Name Freq PRN Reason Stop Dose Admin Acetaminophen 500 mg 10/10/18 23:02 Tylenol - PO Q6H PRN PAIN LEVEL 1-5 Albuterol Sulfate 1 amp 10/10/18 21:19 Ventolin 0.042trength) - NEB Q4H PRN SHORT OF BREATH/WHEEZING Apixaban 2.5 mg 10/10/18 22:00 10/11/18 09:14 Eliquis - PO 2.5 mg BID HOANG Administration Atorvastatin Calcium 20 mg 10/10/18 22:00 10/10/18 23:50 Lipitor - PO 20 mg HS HOANG Administration Lidocaine 1 patch 10/11/18 10:00 10/11/18 09:16 Lidoderm Patch - TP 1 patch DAILY HOANG Administration Metoprolol Succinate 25 mg 10/11/18 10:00 10/11/18 09:14 Toprol Xl - PO 25 mg DAILY HOANG Administration Miscellaneous 1 each 10/11/18 22:00 Lidoderm Patch Removal MC DAILY@2200 HOANG Nifedipine 60 mg 10/11/18 10:00 10/11/18 09:14 Procardia Xl - PO 60 mg DAILY HOANG Administration Home Medications Medication Instructions Recorded Albuterol Sulfate 0.042% [Ventolin 1 amp NEB Q4H PRN amp 09/25/18 0.042% (Half-Strength) -] Apixaban [Eliquis -] 2.5 mg PO BID tablet 09/25/18 Atorvastatin Ca [Lipitor] 20 mg PO HS tablet 09/25/18 Metoprolol Succinate [Toprol XL -] 25 mg PO DAILY 10/10/18 Nifedipine ER [Procardia XL -] 60 mg PO DAILY 10/10/18 Microbiology 10/10/18 20:00 Body Fluid - Other Gram Stain - Final Assessment and plan: Patient is a 88 y/o female with PMH of CAD, Afib, HTN, anemia who presents with L shoulder pain x one week. #Left Shoulder pain: Ortho on the case, s/p arthrosentesis , follow cx #Afib with rate controlled continue eliquis 2.5 BID, Toprol 25 daily #HTN continue home meds. #HLD continue home meds DV PPX: eliquis Visit type - Emergency Visit Emergency Visit: Yes ED Registration Date: 10/10/18 Care time: The patient presented to the Emergency Department on the above date and was hospitalized for further evaluation of their emergent condition. - New Patient This patient is new to me today: No - Critical Care Critical Care patient: No - Discharge Referral Referred to [facility] Med P.C.: No
[2018-10-11] MEDS: ACETAMINOPHEN 500 MG TABLET (FP) PO PRN (12:01)
--- NOTE | 2018-10-11 13:11 | PN ---
Progress Note (short form) - Note Progress Note: ID consult dictated imp/reccd 88 yo female PMH of htn, afib, recent pneumonia she was hospitalized 09/20 to 09/25 for pneumonia started on eliquis for afib she developed pain and swelling of her right shoulder about 5 days ago no fevers or chills she was sent to the [facility] er , had xrays and was discharged she had continued pain and was sent to the ER at [facility] she recently had a prevnar 13 injection in the same shoulder ct scan was done in the ER and showed subdeltoid and subacacoid bursitis the bursa was aspirated unfortunately the fluid collected and no cell count was obtained culture is pending gram stain is negative bursitis- not sure why-suspect inflammatory rather then infectious doubt septic arthritis but can continue vancomycin for now as no cell count was able to be obtained check level in am before redosing - weight is 53 kilos, crcl is 30 we also have no crystals- no history of gout suggest continue vancomycin for now-check level in am before redosing if cultures are negative can d/c antibiotics suggest uric acid level d/w ortho d/w hospitalist d/w daughter Problem List - Problems (1) Left shoulder pain Code(s): M25.512 - PAIN IN LEFT SHOULDER Qualifiers: Chronicity: acute Qualified Code(s): M25.512 - Pain in left shoulder (2) Bursitis Code(s): M71.9 - BURSOPATHY, UNSPECIFIED
--- NOTE | 2018-10-11 18:06 | CONS ---
DATE OF CONSULTATION: DATE OF DICTATION: 10/11/2018 INFECTIOUS DISEASE CONSULTATION REQUESTING PHYSICIAN: Hospitalist Service HISTORY OF PRESENT ILLNESS: This is an 88-year-old woman who was recently hospitalized for pneumonia September 20 through September 25, after which she went to a SNF for recuperation. While there she got a Prevnar vaccine in her arm. Several days later she noted pain and swelling of that arm. There was no erythema, but she was noted to have fluctuance at her shoulder, which by the transfer note from the halfway was at least 5 to 7 cm away from the injection site. She had no fever or chills. It was never red. She was referred to [facility] Emergency Room, where she was evaluated and discharged back to the community. The pain persisted. She had limited range of motion of her shoulder, and she was sent to the ER. In the emergency room she had a consultation with Orthopedics, who aspirated the shoulder. Unfortunately, the fluid clotted and only a minimal amount of fluid was able to be sent for culture. No crystals or cell count was sent. She received vancomycin and Zosyn in the emergency room. I am asked to see her for further evaluation. CAT scan of the upper shoulder reveals the subdeltoid and subarachnoid bursa with fluid. There was no evidence of fracture. There was some mild to moderate DJD. PAST MEDICAL HISTORY: Notable for hypertension, anemia, pneumonia, coronary artery disease. She is status post stent. PAST SURGICAL HISTORY: Notable for bilateral total hip replacement. SOCIAL HISTORY: No history of cigarettes, alcohol or substance use. ALLERGIES: She has no known drug allergies. MEDICATIONS: Her medications include albuterol, Eliquis, Lipitor, Toprol-XL and Procardia-XL. REVIEW OF SYSTEMS: Notable for limited range of motion, swelling and pain in her shoulder. I spoke with her daughter, she denies any history of gout. She never had trouble with her shoulder in the past. PHYSICAL EXAMINATION: General: She is an elderly woman, awake and alert, in no acute distress. Vital Signs: Temperature is 98.1. Pulse is 79. Blood pressure 116/55. Respiratory rate is 18. She is saturating 92% on room air. HEENT: She is normocephalic. Her eyes are anicteric. Neck: Supple. Lungs: Clear to auscultation. Heart: Regular rate and rhythm. Abdomen: Soft, nontender. Extremities: She has superficial swelling of the left shoulder. There is no associated erythema or warmth. DIAGNOSTIC STUDIES: White count is 8, hemoglobin 10.5, platelets 234, sedimentation rate 68. BUN 26, creatinine 1.1. CRP is 22. Urinalysis is negative. Gram stain of the fluid shows many white cells. No organisms seen. Cultures are pending. SUMMARY: This is an 88-year-old woman admitted with bursitis of her shoulder. I am not sure why she has it. I suspect this is inflammatory rather than infectious. I doubt septic arthritis as this is clearly a bursitis, but would continue vancomycin for now as no cell count was able to be obtained. Will check a vancomycin level in the morning before re-dosing. Her creatinine clearance is only 30, and she received a dose last night. I would suggest continuing the vancomycin for now. Will check a level in the morning. If cultures are negative, can stop the antibiotics and get a uric acid level. I spoke with Orthopedics, who confirmed that the bursa was aspirated. NADJA HALL M.D. [id number]
[2018-10-11] MEDS: ATORVASTATIN CA 20 MG TABLET (FP) PO SCH (21:24)
[2018-10-11] MEDS: LIDOCAINE PATCH REMOVAL MC SCH (21:24)
--- NOTE | 2018-10-12 08:16 | PN ---
Physical Exam: SUBJECTIVE: Patient seen and examined at bedside. Eating breakfast. OBJECTIVE: Vital Signs Period Temp Pulse Resp BP Sys/Patel Pulse Ox Last 24 Hr 98.0 F-98.9 F 76-93 18-20 91-117/51-63 91-97 GENERAL: NAD HEAD: Normal with no signs of trauma. EYES: EOMI Sclera clear ENT: MMM NECK: Trachea midline, full range of motion, supple. LUNGS: Crackles at bases HEART: irregular S1S2 ABDOMEN: Sft NDNT EXTREMITIES: No CCE NEUROLOGICAL: Cranial nerves II through XII grossly intact. SKIN: Warm, dry, normal turgor, no rashes or lesions noted Laboratory Results - last 24 hr 10/11/18 10/11/18 10/11/18 06:09 06:09 06:09 WBC 8.0 RBC 4.93 Hgb 10.5 L Hct 33.0 MCV 66.9 L MCH 21.2 L MCHC 31.8 L RDW 15.1 Plt Count 234 D MPV 8.2 Absolute Neuts (auto) 4.8 Neutrophils % 60.0 D Lymphocytes % 25.2 D Monocytes % 8.6 Eosinophils % 5.3 H D Basophils % 0.9 Nucleated RBC % 0 PT with INR 16.30 H INR 1.38 H PTT (Actin FS) 43.1 H Sodium Potassium Chloride Carbon Dioxide Anion Gap BUN Creatinine Creat Clearance w eGFR Random Glucose Calcium Magnesium Total Bilirubin AST ALT Alkaline Phosphatase Total Protein Albumin 10/11/18 06:09 WBC RBC Hgb Hct MCV MCH MCHC RDW Plt Count MPV Absolute Neuts (auto) Neutrophils % Lymphocytes % Monocytes % Eosinophils % Basophils % Nucleated RBC % PT with INR INR PTT (Actin FS) Sodium 138 Potassium 3.8 Chloride 102 Carbon Dioxide 27 Anion Gap 9 BUN 26 H Creatinine 1.1 Creat Clearance w eGFR 46.88 Random Glucose 96 Calcium 8.0 L Magnesium 2.5 H Total Bilirubin 0.5 AST 23 ALT 11 L Alkaline Phosphatase 79 Total Protein 6.0 L Albumin 2.4 L Active Medications Generic Name Dose Route Start Last Admin Trade Name Freq PRN Reason Stop Dose Admin Acetaminophen 500 mg 10/10/18 23:02 10/11/18 12:01 Tylenol - PO 500 mg Q6H PRN Administration PAIN LEVEL 1-5 Albuterol Sulfate 1 amp 10/10/18 21:19 Ventolin 0.042trength) - NEB Q4H PRN SHORT OF BREATH/WHEEZING Apixaban 2.5 mg 10/10/18 22:00 10/11/18 21:24 Eliquis - PO 2.5 mg BID HOANG Administration Atorvastatin Calcium 20 mg 10/10/18 22:00 10/11/18 21:24 Lipitor - PO 20 mg HS HOANG Administration Lidocaine 1 patch 10/11/18 10:00 10/11/18 09:16 Lidoderm Patch - TP 1 patch DAILY HOANG Administration Metoprolol Succinate 25 mg 10/11/18 10:00 10/11/18 09:14 Toprol Xl - PO 25 mg DAILY HOANG Administration Miscellaneous 1 each 10/11/18 22:00 10/11/18 21:24 Lidoderm Patch Removal MC 1 each DAILY@2200 HOANG Administration Nifedipine 60 mg 10/11/18 10:00 10/11/18 09:14 Procardia Xl - PO 60 mg DAILY HOANG Administration ASSESSMENT/PLAN: 88 y/o female with PMH of CAD, Afib, HTN, anemia who presents with L shoulder pain of one week duration #Left Shoulder pain 2/2 bursitis * xray negative for fracture * CT shows area of fluid collection in subdeltoid bursa anteriorly. * S/P Arthrocentesis in ED by Dr Barr, Orthopedic Surgery * gram stain negative for any organisms. Many polymorphonuclear WBCs. * Lidocaine patch * tylenol PRN for pain * Blood and Urine cultures negative * Ortho on board #Afib * c/w eliquis 2.5 BID * Toprol 25 daily #HTN * c/w nifedipine 60 daily #HLD * c/w home meds F/E/N * not on fluids * monitor electrolytes * sodium controlled diet DV PPX: * eliquis dispo: med/surg Visit type - Emergency Visit Emergency Visit: Yes ED Registration Date: 10/10/18 Care time: The patient presented to the Emergency Department on the above date and was hospitalized for further evaluation of their emergent condition. - New Patient This patient is new to me today: Yes Date on this admission: 10/12/18 - Critical Care Critical Care patient: No - Discharge Referral Referred to [facility] Med P.C.: No
[2018-10-12] MEDS: NIFEdipine E.R. 30 MG TABLET (FP) PO SCH (09:35)
[2018-10-12] MEDS: LIDOCAINE 5% TOPICAL PATCH TP SCH (09:35)
[2018-10-12] MEDS: metoPROLOL SUCCINATE 25 MG TAB.SR.24H (FP) PO SCH (09:35)
[2018-10-12] MEDS: APIXABAN 2.5 MG TABLET PO SCH ×2 (09:36→22:10)
[2018-10-12] MEDS: ACETAMINOPHEN 500 MG TABLET (FP) PO PRN ×2 (09:39→22:10)
--- NOTE | 2018-10-12 13:00 | PN ---
Progress Note (short form) - Note Progress Note: ORTHOPEDIC SURGERY PROGRESS NOTE Department of Orthopedic Surgery SUBJECTIVE No acute events overnight. Still complaining of left shoulder pain and decreased ROM; Denies chest pain, shortness of breath, or calf pain. No nausea or vomiting. Tolerating oral intake. Pain control difficult overnight, but improving. PHYSICAL EXAMINATION General: Alert, oriented, cooperative and no distress. Left Upper Extremity: Skin dry, and intact; no lesions, rashes or ulcers noted. No erythema or warmth. Muscle mass equal and symmetric to contralateral side. No atrophy noted. No masses or effusions noted. Tender to palpation at the anterior portion of the shoulder where there is an area of swelling - slightly improved - lateral to the corocoid process. Nontender throughout rest of extremity. LROM of the left shoulder secondary to pain. Joints stable with no pathologic laxity. M/R/U/MSK/AX motor intact; SILT distally; 2+ radial pulses; Cap refill brisk. Tone and reflexes normal. Intake & Output 10/09/18 10/10/18 10/11/18 23:59 23:59 23:59 Other: Voiding Method Toilet # Unmeasured Voids Void 1 Weight 114 lb 6.4 oz 133 lb Height 5 ft 5 ft Body Mass Index (BMI) 22.3 25.9 Weight Measurement Method Est/Stated by Patient Active Medications Generic Name Dose Route Start Last Admin Trade Name Freq PRN Reason Stop Dose Admin Acetaminophen 500 mg 10/10/18 23:02 Tylenol - PO Q6H PRN PAIN LEVEL 1-5 Albuterol Sulfate 1 amp 10/10/18 21:19 Ventolin 0.042trength) - NEB Q4H PRN SHORT OF BREATH/WHEEZING Apixaban 2.5 mg 10/10/18 22:00 10/11/18 09:14 Eliquis - PO 2.5 mg BID HOANG Administration Atorvastatin Calcium 20 mg 10/10/18 22:00 10/10/18 23:50 Lipitor - PO 20 mg HS HOANG Administration Lidocaine 1 patch 10/11/18 10:00 10/11/18 09:16 Lidoderm Patch - TP 1 patch DAILY HOANG Administration Metoprolol Succinate 25 mg 10/11/18 10:00 10/11/18 09:14 Toprol Xl - PO 25 mg DAILY HOANG Administration Miscellaneous 1 each 10/11/18 22:00 Lidoderm Patch Removal MC DAILY@2200 HOANG Nifedipine 60 mg 10/11/18 10:00 10/11/18 09:14 Procardia Xl - PO 60 mg DAILY HOANG Administration Vital Signs (last) Temp Pulse Resp BP Pulse Ox 98.2 F 82 18 120/60 97 10/11/18 07:00 10/11/18 07:00 10/11/18 07:00 10/11/18 07:00 10/11/18 05:18 Laboratory (coagulation) PT with INR 16.30 SEC (9.7-13.0) H 10/11/18 06:09 Laboratory 10/11/18 06:09 10/11/18 06:09 ASSESSMENT AND PLAN Ms. Saavedra is a 88 year old female presenting with left shoulder pain and bursitis. Fluid cultures collected currently NGTD. We have reviewed the imaging and clinical findings in detail, as well as their potential implications and agreed on the following plan: - Pain Control - DVT prophylaxis - ID Consult appreciated - Follow up culture and gram stain of fluid aspirate final results - Blood cx: NGTD; Urine cx: NG; - Fluid cx: NGTD; Gram stain: Negative - Will follow closely - Continue medical management - No current orthopedic intervention planned at this time.
--- NOTE | 2018-10-12 14:08 | PN ---
Progress Note (short form) - Note Progress Note: continues with shoulder discomfort swelling unchanged Vital Signs Period Temp Pulse Resp BP Sys/Patel Pulse Ox Last 24 Hr 97.6 F-98.9 F 76-84 19-20 91-116/51-61 91-97 cor-rrr lungs clear abd soft,nt ext shoulder swelling unchanged CBC, BMP 10/11/18 06:09 10/11/18 06:09 Microbiology 10/10/18 20:00 Body Fluid - Other Gram Stain - Final 10/10/18 20:00 Body Fluid - Other Body Fluid Culture - Preliminary-no growth 10/11/18 02:00 Urine - Urine Clean Catch Urine Culture - Final NO GROWTH OBTAINED 10/10/18 20:56 Blood - Peripheral Venous Blood Culture - Preliminary NO GROWTH OBTAINED AFTER 24 HOURS, INCUBATION TO CONTINUE FOR 4 DAYS. 10/10/18 20:56 Blood - Peripheral Venous Blood Culture - Preliminary NO GROWTH OBTAINED AFTER 24 HOURS, INCUBATION TO CONTINUE FOR 4 DAYS. Laboratory Tests 10/10/18 10/12/18 10/12/18 17:13 07:00 07:00 Uric Acid 8.2 H C-Reactive Protein 22.3 H Random Vancomycin 9.2 L vanco trough 9 a/p bursitis- not sure why-suspect inflammatory rather then infectious doubt septic arthritis -cultures negative at 24 hours hold further antibiotics at this time elevated uric acid- ?gout would consider rheumatology evaluation Problem List - Problems (1) Left shoulder pain Code(s): M25.512 - PAIN IN LEFT SHOULDER Qualifiers: Chronicity: acute Qualified Code(s): M25.512 - Pain in left shoulder (2) Bursitis Code(s): M71.9 - BURSOPATHY, UNSPECIFIED
--- NOTE | 2018-10-12 14:31 | PN ---
Teaching Attending Note Name of Resident: Todd Colin ATTENDING PHYSICIAN STATEMENT I saw and evaluated the patient. I reviewed the resident's note and discussed the case with the resident. I agree with the resident's findings and plan as documented. SUBJECTIVE: Patient is comfortable with no acute distress. still c/o of having left upper extremity pain unable to elevate the arm. OBJECTIVE: Vital Signs Temperature 97.6 F 10/12/18 09:00 Pulse Rate 84 10/12/18 09:00 Respiratory Rate 20 10/12/18 09:00 Blood Pressure 112/61 10/12/18 09:00 O2 Sat by Pulse Oximetry (%) 95 10/12/18 09:00 GENERAL: The patient is awake, alert, and fully oriented, in no acute distress. HEAD: Normal with no signs of trauma. EYES: PERRL, extraocular movements intact, sclera anicteric, conjunctiva clear. ENT: Ears normal, oropharynx clear without exudates, moist mucous membranes. NECK: Trachea midline, full range of motion, supple. LUNGS: Breath sounds equal, clear to auscultation bilaterally, no wheezes, no crackles, no accessory muscle use. HEART: Regular rate and rhythm, S1, S2 without murmur, rub or gallop. ABDOMEN: Soft, nontender, nondistended, normoactive bowel sounds, no guarding, no rebound, no hepatosplenomegaly, no masses. EXTREMITIES: 2+ pulses, warm, well-perfused, no edema. decreased ROM NEUROLOGICAL: Cranial nerves II through XII grossly intact. Normal speech. PSYCH: Normal mood, normal affect. SKIN: Warm, dry, normal turgor, no rashes or lesions noted CBCD WBC 8.0 K/mm3 (4.0-10.0) 10/11/18 06:09 RBC 4.93 M/mm3 (3.60-5.2) 10/11/18 06:09 Hgb 10.5 GM/dL (10.7-15.3) L 10/11/18 06:09 Hct 33.0 % (32.4-45.2) 10/11/18 06:09 MCV 66.9 fl (80-96) L 10/11/18 06:09 MCHC 31.8 g/dl (32.0-36.0) L 10/11/18 06:09 RDW 15.1 % (11.6-15.6) 10/11/18 06:09 Plt Count 234 K/MM3 (134-434) D 10/11/18 06:09 MPV 8.2 fl (7.5-11.1) 10/11/18 06:09 CMP Sodium 138 mmol/L (136-145) 10/11/18 06:09 Potassium 3.8 mmol/L (3.5-5.1) 10/11/18 06:09 Chloride 102 mmol/L (98-107) 10/11/18 06:09 Carbon Dioxide 27 mmol/L (21-32) 10/11/18 06:09 Anion Gap 9 MMOL/L (8-16) 10/11/18 06:09 BUN 26 mg/dL (7-18) H 10/11/18 06:09 Creatinine 1.1 mg/dL (0.55-1.3) 10/11/18 06:09 Creat Clearance w eGFR 46.88 (>60) 10/11/18 06:09 Random Glucose 96 mg/dL (74-106) 10/11/18 06:09 Calcium 8.0 mg/dL (8.5-10.1) L 10/11/18 06:09 Total Bilirubin 0.5 mg/dL (0.2-1) 10/11/18 06:09 AST 23 U/L (15-37) 10/11/18 06:09 ALT 11 U/L (13-61) L 10/11/18 06:09 Alkaline Phosphatase 79 U/L (45-117) 10/11/18 06:09 Total Protein 6.0 g/dl (6.4-8.2) L 10/11/18 06:09 Albumin 2.4 g/dl (3.4-5.0) L 10/11/18 06:09 Current Medications Generic Name Dose Route Start Last Admin Trade Name Freq PRN Reason Stop Dose Admin Acetaminophen 500 mg 10/10/18 23:02 10/12/18 09:39 Tylenol - PO 500 mg Q6H PRN Administration PAIN LEVEL 1-5 Albuterol Sulfate 1 amp 10/10/18 21:19 Ventolin 0.042trength) - NEB Q4H PRN SHORT OF BREATH/WHEEZING Apixaban 2.5 mg 10/10/18 22:00 10/12/18 09:36 Eliquis - PO 2.5 mg BID HOANG Administration Atorvastatin Calcium 20 mg 10/10/18 22:00 10/11/18 21:24 Lipitor - PO 20 mg HS HOANG Administration Lidocaine 1 patch 10/11/18 10:00 10/12/18 09:35 Lidoderm Patch - TP 1 patch DAILY HOANG Administration Metoprolol Succinate 25 mg 10/11/18 10:00 10/12/18 09:35 Toprol Xl - PO 25 mg DAILY HOANG Administration Miscellaneous 1 each 10/11/18 22:00 10/11/18 21:24 Lidoderm Patch Removal MC 1 each DAILY@2200 HOANG Administration Nifedipine 60 mg 10/11/18 10:00 10/12/18 09:35 Procardia Xl - PO 60 mg DAILY HOANG Administration Home Medications Medication Instructions Recorded Albuterol Sulfate 0.042% [Ventolin 1 amp NEB Q4H PRN amp 09/25/18 0.042% (Half-Strength) -] Apixaban [Eliquis -] 2.5 mg PO BID tablet 09/25/18 Atorvastatin Ca [Lipitor] 20 mg PO HS tablet 09/25/18 Metoprolol Succinate [Toprol XL -] 25 mg PO DAILY 10/10/18 Nifedipine ER [Procardia XL -] 60 mg PO DAILY 10/10/18 Microbiology 10/10/18 20:00 Body Fluid - Other Gram Stain - Final 10/10/18 20:00 Body Fluid - Other Body Fluid Culture - Final NO GROWTH OF AEROBIC ORGANISMS AFTER 48 HOURS INCUBATION 10/10/18 20:00 Body Fluid - Other Anaerobic Culture - Final NO ANAEROBES WERE ISOLATED 10/10/18 20:56 Blood - Peripheral Venous Blood Culture - Preliminary NO GROWTH OBTAINED AFTER 48 HOURS, INCUBATION TO CONTINUE FOR 3 DAYS. 10/10/18 20:56 Blood - Peripheral Venous Blood Culture - Preliminary NO GROWTH OBTAINED AFTER 48 HOURS, INCUBATION TO CONTINUE FOR 3 DAYS. 10/11/18 02:00 Urine - Urine Clean Catch Urine Culture - Final NO GROWTH OBTAINED 10/10/18 20:00 Body Fluid - Other Gram Stain - Final Assessment and plan: Patient is a 88 y/o female with PMH of CAD, Afib, HTN, anemia who presents with L shoulder pain x one week. #Left Shoulder pain: Ortho on the case, s/p arthrosentesis , will follow cx #Afib with rate controlled continue eliquis 2.5 BID, Toprol 25mg XL daily #HTN continue home meds.Toprol #HLD continue home meds DV PPX: eliquis
[2018-10-12] MEDS: LIDOCAINE PATCH REMOVAL MC SCH (22:10)
[2018-10-12] MEDS: ATORVASTATIN CA 20 MG TABLET (FP) PO SCH (22:10)
[2018-10-13 07:23] LABS: HEMATOCRIT 36.7 % (32.4-45.2); HEMOGLOBIN 11.2 GM/dL (10.7-15.3); MCH 20.4 pg (25.7-33.7); MCHC 30.6 g/dl (32.0-36.0); MEAN CELL VOLUME 66.6 fl (80-96); MEAN PLT VOLUME 7.7 fl (7.5-11.1); PLATELET COUNT 250 K/MM3 (134-434); RBC 5.51 M/mm3 (3.60-5.2); RDW 15.5 % (11.6-15.6); WHITE BLOOD COUNT 5.7 K/mm3 (4.0-10.0)
[2018-10-13 07:59] LABS: ANION GAP 9 MMOL/L (8-16); BLOOD UREA NITROGEN 24 mg/dL (7-18); CALCIUM 8.4 mg/dL (8.5-10.1); CHLORIDE 108 mmol/L (98-107); CO2 24 mmol/L (21-32); GLUCOSE,RANDOM 111 mg/dL (74-106); MAGNESIUM 2.4 mg/dL (1.8-2.4); PHOSPHOROUS 3.5 mg/dL (2.5-4.9); POTASSIUM 3.9 mmol/L (3.5-5.1); SODIUM 141 mmol/L (136-145)
[2018-10-13] MEDS: NIFEdipine E.R. 30 MG TABLET (FP) PO SCH (10:30)
[2018-10-13] MEDS: APIXABAN 2.5 MG TABLET PO SCH (10:30)
[2018-10-13] MEDS: metoPROLOL SUCCINATE 25 MG TAB.SR.24H (FP) PO SCH (10:30)
[2018-10-13] MEDS: LIDOCAINE 5% TOPICAL PATCH TP SCH (10:30)
--- NOTE | 2018-10-13 10:57 | PN ---
Progress Note (short form) - Note Progress Note: ORTHOPEDIC SURGERY PROGRESS NOTE Department of Orthopedic Surgery SUBJECTIVE No acute events overnight. Still complaining of left shoulder pain and decreased ROM; Denies chest pain, shortness of breath, or calf pain. No nausea or vomiting. Tolerating oral intake. PHYSICAL EXAMINATION General: Alert, oriented, cooperative and no distress. Left Upper Extremity: Skin dry, and intact; no lesions, rashes or ulcers noted. No erythema or warmth. Muscle mass equal and symmetric to contralateral side. No atrophy noted. No masses or effusions noted. Improved tender to palpation at the anterior portion of the shoulder lateral to the corocoid process. Nontender throughout rest of extremity. LROM of the left shoulder secondary to pain. Joints stable with no pathologic laxity. M/R/U/MSK/AX motor intact; SILT distally; 2+ radial pulses; Cap refill brisk. Tone and reflexes normal. Intake & Output 10/11/18 10/12/18 10/13/18 23:59 23:59 23:59 Intake Total 845 1200 Balance 845 1200 Intake: Oral 845 1200 Other: Voiding Method Bedpan Toilet Toilet # Unmeasured Voids Void 2 1 Bowel Movement No No # Bowel Movements 1 1 Weight 133 lb Height 5 ft Body Mass Index (BMI) 25.9 Active Medications Generic Name Dose Route Start Last Admin Trade Name Freq PRN Reason Stop Dose Admin Acetaminophen 500 mg 10/10/18 23:02 10/12/18 22:10 Tylenol - PO 500 mg Q6H PRN Administration PAIN LEVEL 1-5 Albuterol Sulfate 1 amp 10/10/18 21:19 Ventolin 0.042trength) - NEB Q4H PRN SHORT OF BREATH/WHEEZING Apixaban 2.5 mg 10/10/18 22:00 10/13/18 10:30 Eliquis - PO 2.5 mg BID HOANG Administration Atorvastatin Calcium 20 mg 10/10/18 22:00 10/12/18 22:10 Lipitor - PO 20 mg HS HOANG Administration Lidocaine 1 patch 10/11/18 10:00 10/13/18 10:30 Lidoderm Patch - TP 1 patch DAILY HOANG Administration Metoprolol Succinate 25 mg 10/11/18 10:00 10/13/18 10:30 Toprol Xl - PO 25 mg DAILY HOANG Administration Miscellaneous 1 each 10/11/18 22:00 10/12/18 22:10 Lidoderm Patch Removal MC 1 each DAILY@2200 HOANG Administration Nifedipine 60 mg 10/11/18 10:00 10/13/18 10:30 Procardia Xl - PO 60 mg DAILY HOANG Administration Vital Signs (last) Temp Pulse Resp BP Pulse Ox 97.9 F 74 20 136/64 96 10/13/18 05:55 10/13/18 05:55 10/13/18 05:55 10/13/18 05:55 10/13/18 01:00 Laboratory (coagulation) PT with INR 16.30 SEC (9.7-13.0) H 10/11/18 06:09 Laboratory 10/13/18 06:30 10/13/18 06:30 ASSESSMENT AND PLAN Ms. Saavedra is a 88 year old female presenting with left shoulder pain and bursitis - possible due to gouty inflammation. Unlikely septic joint. Fluid cultures collected currently NGTD. We have reviewed the imaging and clinical findings in detail, as well as their potential implications and agreed on the following plan: - Pain Control - DVT prophylaxis - Physical therapy - ID Consult appreciated - recommend rheumatology consult - Follow up culture and gram stain of fluid aspirate final results - Blood cx: NGTD; Urine cx: NG; - Fluid cx: NGTD; Gram stain: Negative - Continue medical management - No current orthopedic intervention planned at this time.
--- NOTE | 2018-10-13 10:59 | EKG ---
Test Reason : Blood Pressure : / mmHG Vent. Rate : 086 BPM Atrial Rate : 020 BPM P-R Int : 000 ms QRS Dur : 074 ms QT Int : 350 ms P-R-T Axes : 000 -23 067 degrees QTc Int : 418 ms LIKELY SINUS RHYTHM WITH OCCASIONAL PREMATURE VENTRICULAR COMPLEXES VOLTAGE CRITERIA FOR LEFT VENTRICULAR HYPERTROPHY CANNOT RULE OUT SEPTAL INFARCT (CITED ON OR BEFORE 07-MAR-2016) ABNORMAL ECG WHEN COMPARED WITH ECG OF 21-SEP-2018 11:46, PREMATURE VENTRICULAR COMPLEX IS SEEN Confirmed by JACQUELINE VAZQUEZ MD ([id number]) on 10/13/2018 10:58:45 AM Referred By: Confirmed By:JACQUELINE VAZQUEZ MD
--- NOTE | 2018-10-13 13:23 | DS ---
Physical Exam: SUBJECTIVE: Patient seen and examined at bedside no acute events overnight patient is no longer having shoudler pain she denies any CP/SOB/N/V fevers or chills OBJECTIVE: Vital Signs Period Temp Pulse Resp BP Sys/Patel Pulse Ox Last 24 Hr 97.9 F-98.4 F 74-79 18-20 126-136/64-74 94-96 PHYSICAL EXAM GENERAL: The patient is awake, alert, and fully oriented, in no acute distress. EYES:PEERLA: EOMI no scleral icterus NECK: no JVD; no lymphadenopathy LUNGS: CTA B/L; no rales, rhonchi or wheezing HEART: Regular rate and rhythm, S1, S2 without murmur, rub or gallop. ABDOMEN: Soft, nontender, nondistended, normoactive bowel sounds, no guarding, no rebound, no hepatosplenomegaly, no masses. EXTREMITIES: 2+ pulses, warm, well-perfused, no edema left shoudler increased ROM; slight tenderness upon palpation. PSYCH: Normal mood, normal affect. SKIN: Warm, dry, normal turgor, no rashes or lesions noted. LABS Laboratory Results - last 24 hr 10/13/18 10/13/18 06:30 06:30 WBC 5.7 RBC 5.51 H Hgb 11.2 Hct 36.7 MCV 66.6 L MCH 20.4 L MCHC 30.6 L RDW 15.5 Plt Count 250 MPV 7.7 Sodium 141 Potassium 3.9 Chloride 108 H Carbon Dioxide 24 Anion Gap 9 BUN 24 H Creatinine 1.0 Creat Clearance w eGFR 52.33 Random Glucose 111 H Calcium 8.4 L Phosphorus 3.5 Magnesium 2.4 HOSPITAL COURSE: Date of Admission:10/10/18 88 y/o famle with PMH of CAD< afib, HTN< anemia who presented with a one week history of left shoulder pain afgter receving both pneumonia and flu vaccine. patient had been having increased pain and decreased ROM for over a week; tried tkaing tylenol with slight relief. when she came to the ED xray was done showing no fracture or subluxation but a fluid collection was seen in the bursa - she was seen by ortho who attemted to tap the shoulder but only slihgt fluid was drawn, culture and stain were negative. ESR and CRP were eleavted- she was given vanc/zosyn- seen by ID who did not think this was septic joint or infectious and did not need abx. she was given a lidoderm patch and d/c Date of Discharge: 10/13/18 Minutes to complete discharge: 39 Discharge Summary Reason For Visit: ELEVATED ERYTHROCYTE SEDIMENTATION RATE/ELEVATED C Condition: Improved - Instructions Diet, Activity, Other Instructions: You came to the emergency room with complaints of left shoulder pain that had been ongoing for about a week. We did X-RAYS which showed no fracture and we had an orthopedist come to remove some fluid from the shoulder, likely just an inflammation of the bursa. Your pain improved and you are stable to go back to rehab Please resume all of your home medications in addition: Please take the medication Zantac 300mg daily Please follow up with Dr. Navarrete within one week Please follow up with Dr. Barr, the orthopedist *if you begin to experience worsening shoulder pain, chest pains, shortness of breath, nausea/vomiting please return to the emergency room immediately Referrals: Sanjay Barr DO [Staff Physician] - 1 Week Disposition: HOME - Home Medications Comprehensive Discharge Medication List: Ambulatory Orders Albuterol Sulfate 0.042% [Ventolin 0.042% (Half-Strength) -] 1 amp NEB Q4H PRN amp 09/25/18 Apixaban [Eliquis -] 2.5 mg PO BID tablet 09/25/18 Atorvastatin Ca [Lipitor] 20 mg PO HS tablet 09/25/18 Metoprolol Succinate [Toprol XL -] 25 mg PO DAILY 10/10/18 Nifedipine ER [Procardia XL -] 60 mg PO DAILY 10/10/18 Ranitidine HCl [Zantac] 300 mg PO DAILY #30 tablet 10/13/18 Problem List - Problems (1) Elevated C-reactive protein (CRP) Code(s): R79.82 - ELEVATED C-REACTIVE PROTEIN (CRP) (2) Elevated erythrocyte sedimentation rate Code(s): R70.0 - ELEVATED ERYTHROCYTE SEDIMENTATION RATE (3) Left shoulder pain Code(s): M25.512 - PAIN IN LEFT SHOULDER Qualifiers: Chronicity: acute Qualified Code(s): M25.512 - Pain in left shoulder (4) Aortic stenosis Code(s): I35.0 - NONRHEUMATIC AORTIC (VALVE) STENOSIS Qualifiers: Cardiac valve disease etiology: nonrheumatic Qualified Code(s): I35.0 - Nonrheumatic aortic (valve) stenosis (5) Atrial fibrillation with controlled ventricular rate Code(s): I48.91 - UNSPECIFIED ATRIAL FIBRILLATION This patient is new to me today: No Emergency Visit: Yes ED Registration Date: 10/10/18 Care time: The patient presented to the Emergency Department on the above date and was hospitalized for further evaluation of their emergent condition. Critical Care patient: No - Discharge Referral Referred to [facility] No
--- NOTE | 2018-10-13 15:34 | PN ---
Teaching Attending Note Name of Resident: Alexsandra Barney ATTENDING PHYSICIAN STATEMENT I saw and evaluated the patient. I reviewed the resident's note and discussed the case with the resident. I agree with the resident's findings and plan as documented. SUBJECTIVE: Patient's pain is improving, tapped by orthopedic, serosinguinas fluid. OBJECTIVE: Vital Signs Temperature 97.4 F L 10/13/18 14:00 Pulse Rate 83 10/13/18 14:00 Respiratory Rate 20 10/13/18 14:00 Blood Pressure 142/69 10/13/18 14:00 O2 Sat by Pulse Oximetry (%) 96 10/13/18 01:00 GENERAL: The patient is awake, alert, and fully oriented, in no acute distress. HEAD: Normal with no signs of trauma. EYES: PERRL, extraocular movements intact, sclera anicteric, conjunctiva clear. ENT: Ears normal, oropharynx clear without exudates, moist mucous membranes. NECK: Trachea midline, full range of motion, supple. LUNGS: Breath sounds equal, clear to auscultation bilaterally, no wheezes, no crackles, no accessory muscle use. HEART: Regular rate and rhythm, S1, S2 without murmur, rub or gallop. ABDOMEN: Soft, nontender, nondistended, normoactive bowel sounds, no guarding, no rebound, no hepatosplenomegaly, no masses. EXTREMITIES: 2+ pulses, warm, well-perfused, no edema. decreased ROM, but improving NEUROLOGICAL: Cranial nerves II through XII grossly intact. Normal speech. PSYCH: Normal mood, normal affect. SKIN: Warm, dry, normal turgor, no rashes or lesions noted CBCD WBC 5.7 K/mm3 (4.0-10.0) 10/13/18 06:30 RBC 5.51 M/mm3 (3.60-5.2) H 10/13/18 06:30 Hgb 11.2 GM/dL (10.7-15.3) 10/13/18 06:30 Hct 36.7 % (32.4-45.2) 10/13/18 06:30 MCV 66.6 fl (80-96) L 10/13/18 06:30 MCHC 30.6 g/dl (32.0-36.0) L 10/13/18 06:30 RDW 15.5 % (11.6-15.6) 10/13/18 06:30 Plt Count 250 K/MM3 (134-434) 10/13/18 06:30 MPV 7.7 fl (7.5-11.1) 10/13/18 06:30 CMP Sodium 141 mmol/L (136-145) 10/13/18 06:30 Potassium 3.9 mmol/L (3.5-5.1) 10/13/18 06:30 Chloride 108 mmol/L (98-107) H 10/13/18 06:30 Carbon Dioxide 24 mmol/L (21-32) 10/13/18 06:30 Anion Gap 9 MMOL/L (8-16) 10/13/18 06:30 BUN 24 mg/dL (7-18) H 10/13/18 06:30 Creatinine 1.0 mg/dL (0.55-1.3) 10/13/18 06:30 Creat Clearance w eGFR 52.33 (>60) 10/13/18 06:30 Random Glucose 111 mg/dL (74-106) H 10/13/18 06:30 Calcium 8.4 mg/dL (8.5-10.1) L 10/13/18 06:30 Total Bilirubin 0.5 mg/dL (0.2-1) 10/11/18 06:09 AST 23 U/L (15-37) 10/11/18 06:09 ALT 11 U/L (13-61) L 10/11/18 06:09 Alkaline Phosphatase 79 U/L (45-117) 10/11/18 06:09 Total Protein 6.0 g/dl (6.4-8.2) L 10/11/18 06:09 Albumin 2.4 g/dl (3.4-5.0) L 10/11/18 06:09 Current Medications Generic Name Dose Route Start Last Admin Trade Name Freq PRN Reason Stop Dose Admin Acetaminophen 500 mg 10/10/18 23:02 10/12/18 22:10 Tylenol - PO 500 mg Q6H PRN Administration PAIN LEVEL 1-5 Albuterol Sulfate 1 amp 10/10/18 21:19 Ventolin 0.042trength) - NEB Q4H PRN SHORT OF BREATH/WHEEZING Apixaban 2.5 mg 10/10/18 22:00 10/13/18 10:30 Eliquis - PO 2.5 mg BID HOANG Administration Atorvastatin Calcium 20 mg 10/10/18 22:00 10/12/18 22:10 Lipitor - PO 20 mg HS HOANG Administration Lidocaine 1 patch 10/11/18 10:00 10/13/18 10:30 Lidoderm Patch - TP 1 patch DAILY HOANG Administration Metoprolol Succinate 25 mg 10/11/18 10:00 10/13/18 10:30 Toprol Xl - PO 25 mg DAILY HOANG Administration Miscellaneous 1 each 10/11/18 22:00 10/12/18 22:10 Lidoderm Patch Removal MC 1 each DAILY@2200 HOANG Administration Nifedipine 60 mg 10/11/18 10:00 10/13/18 10:30 Procardia Xl - PO 60 mg DAILY HOANG Administration Home Medications Medication Instructions Recorded Albuterol Sulfate 0.042% [Ventolin 1 amp NEB Q4H PRN amp 09/25/18 0.042% (Half-Strength) -] Apixaban [Eliquis -] 2.5 mg PO BID tablet 09/25/18 Atorvastatin Ca [Lipitor] 20 mg PO HS tablet 09/25/18 Metoprolol Succinate [Toprol XL -] 25 mg PO DAILY 10/10/18 Nifedipine ER [Procardia XL -] 60 mg PO DAILY 10/10/18 Apixaban [Eliquis -] 2.5 mg PO BID #60 tablet 10/13/18 Lidocaine 5% Patch [Lidoderm -] 1 patch TP DAILY #3 patch 10/13/18 Ranitidine HCl [Zantac] 300 mg PO DAILY #30 tablet 10/13/18 Microbiology 10/10/18 20:00 Body Fluid - Other Gram Stain - Final 10/10/18 20:00 Body Fluid - Other Body Fluid Culture - Final NO GROWTH OF AEROBIC ORGANISMS AFTER 48 HOURS INCUBATION 10/10/18 20:00 Body Fluid - Other Anaerobic Culture - Final NO ANAEROBES WERE ISOLATED 10/10/18 20:56 Blood - Peripheral Venous Blood Culture - Preliminary NO GROWTH OBTAINED AFTER 48 HOURS, INCUBATION TO CONTINUE FOR 3 DAYS. 10/10/18 20:56 Blood - Peripheral Venous Blood Culture - Preliminary NO GROWTH OBTAINED AFTER 48 HOURS, INCUBATION TO CONTINUE FOR 3 DAYS. 10/11/18 02:00 Urine - Urine Clean Catch Urine Culture - Final NO GROWTH OBTAINED ASSESSMENT AND PLAN: Patient is a 88 y/o female with PMH of CAD, Afib, HTN, anemia who presents with L shoulder pain x one week. #Left Shoulder pain most likely Bursitis ; inflammatory vs infectious : Ortho on the case, s/p arthrosentesis , culture is negaTIVE SO far doubt septic arthritis but can continue vancomycin for now as no cell count was able to be obtained #Afib with rate controlled continue eliquis 2.5 BID, Toprol 25mg XL daily #HTN continue home meds.Toprol #HLD continue home meds DV PPX: eliquis
[2018-10-13 23:43] VITALS: BP 138/68; PULSE 80; TEMP 97.9
== END 2018-10-13 20:30 | disposition home or self-care (01) ==
LOC: JER 16:29 → JERBED 20:25 → J6S 10-11 00:49
PROVIDERS: ADMIT Internal Medicine; ATTEND Internal Medicine
PROC: 0R9K3ZZ Drainage of Left Shoulder Joint, Percutaneous Approach (ICD-10-PCS; principal; 2018-10-10)
PROC: BP49ZZZ Ultrasonography of Left Shoulder (ICD-10-PCS; 2018-10-10)
PROC: 3E03329 Introduction of Other Anti-infective into Peripheral Vein, Percutaneous Approach (ICD-10-PCS; 2018-10-10)
DX: R79.82 Elevated C-reactive protein (CRP) (principal); R70.0 Elevated erythrocyte sedimentation rate; M25.512 Pain in left shoulder; M75.52 Bursitis of left shoulder; E88.09 Other disorders of plasma-protein metabolism, not elsewhere classified; I10 Essential (primary) hypertension; I48.91 Unspecified atrial fibrillation; I25.10 Atherosclerotic heart disease of native coronary artery without angina pectoris; D64.9 Anemia, unspecified; I35.0 Nonrheumatic aortic (valve) stenosis; Z79.01 Long term (current) use of anticoagulants; Z95.5 Presence of coronary angioplasty implant and graft; Z96.643 Presence of artificial hip joint, bilateral
CPT/HCPCS: 20610; 36415; 71045-TC-FY; 73030-TC-LT-FY; 73200-TC-RT; 80048; 80053; 81003; 83735; 84100; 84550; 85025; 85027; 85610; 85651; 85730; 86140; 87040; 87070; 87075; 87086; 87205; 93005; 93010; 96365; 96368; 99284-25; G0378; G0480